=== PATIENT | female | born 1975 | race Caucasian/White ===

== ENCOUNTER → 2018-02-05 07:51 | Outpatient (CLI) | payer BC, OTHER, SELFPAY ==
--- NOTE | 2018-02-05 07:57 | HPBI_ITS ---
MAMMOGRAPHY - BILATERAL SCREENING REASON FOR EXAM: Female, 42 years old. Routine annual screening examination. PERTINENT HISTORY: Grandmother with breast cancer. TECHNIQUE: Digital bilateral breast jillian (3D mammographic acquisition) in the CC and MLO projections. 2-D mediolateral oblique (MLO) and craniocaudad (CC) views of both breasts were obtained. CAD: Full Field Digital Mammography with Computer Added Detection was performed. COMPARISON: Comparison is made with prior study dated July 02, 2016 and November 25, 2011. FINDINGS: Breast Composition: The breasts are almost entirely fatty. There are no dominant masses or suspicious calcifications. No other significant abnormalities are identified. There has been no significant change since the prior study. HPBI/SCREENING MAMM (CAD), BILAT IMPRESSION: Stable bilateral screening mammogram. Yearly follow-up mammogram recommended. (A) ASSESSMENT CATEGORY: BIRADS Category 1: Negative. A letter regarding these results will be sent to the patient by the facility within 30 days. Approximately 10% of breast cancers are not detected by mammography. A normal mammogram should not delay biopsy of a clinically suspicious abnormality. [id number] Electronically Signed: Theron Blair MD at 8:15 EDT Tel [phone], Service support ,
== END ==
PROVIDERS: Family Provider Family Medicine; PCP Family Medicine; Visit Provider Obstetrics & Gynecology
DX: Z12.31 Encounter for screening mammogram for malignant neoplasm of breast (principal)
CPT/HCPCS: 77063; 77067

== ENCOUNTER → 2018-03-12 07:04 | Outpatient (CLI) | payer BC, OTHER, SELFPAY ==
[2018-03-12 08:17] LABS: Absolute Lymphocyte Count 1.67 X10^3/ul (0.83-4.51); Absolute Neutrophil Count 3.5 X10^3/uL (2.0-7.7); Basophil# 0.02 X10^3/uL; Basophil% 0.3 % (0-1); Eosinophil# 0.16 X10^3/uL; Eosinophils% 2.8 % (0-5); Hematocrit 40.8 % (37-47); Hemoglobin 13.1 g/dl (12.0-15.0); Lymphocyte # 1.67 X10^3/ul (4.0); Lymphocyte % 28.8 % (19-41); Mean Corp Hgb Conc 32.1 g/gl (32-36); Mean Corpuscular Hgb 27.7 pg (27.0-32.0); Mean Corpuscular Volume 86.3 fL (81-99); Mean Platelet Vol. 9.9 fl (6.2-12.0); Monocyte% 6.9 % (0-10); Neutrophil # 3.53 X10^3/uL (2.7-7.7); POSITIVE COUNT NO; POSITIVE DIFFERENTIAL NO; POSITIVE MORPHOLOGY NO; Platelet Count 243 K/mm3 (150-450); RBC Distribution Width CV 13.3 % (11.6-14.6); RBC Distribution Width SD 42.4 fl (35.1-43.9); Red Blood Count 4.73 M/mm3 (4.2-5.4); White Blood Count 5.8 K/mm3 (4.4-11.0)
[2018-03-12 08:42] LABS: Microalbumin:Creatinine Ratio 6.9 mg/g CRE (<30 mg/g CRE)
[2018-03-12 08:58] LABS: ALB/GLOB Ratio 1.1 RATIO (0.9-2.4); AST(SGOT) 16 U/L (15-37); Alanine Aminotransfer ALT/SGPT 21 U/L (13-56); Albumin, Serum 3.9 g/dL (3.2-5.0); Alkaline Phosphatase 60 U/L (45-117); Anion Gap 8 (5-15); BUN 19 mg/dL (7-18); BUN/Creat Ratio 20.4 RATIO (10-20); Calcium,Total 8.7 mg/dL (8.5-10.1); Chloride 109 mmol/L (98-107); Cholesterol 260 mg/dL (200); Creatinine, Serum 0.93 mg/dL (0.55-1.02); EST Glomerular Filtration Rate 69 mL/min (>60); Est Glom Filt Rate - Afr Amer 84 mL/min (>60); Globulin 3.4 g/dL (2.2-4.2); Glucose 189 mg/dL (74-106); High Density Lipoprotein 38 mg/dL; Potassium 4.1 mmol/L (3.5-5.1); Protein, Total 7.3 g/dL (6.4-8.2); Sodium Level 140 mmol/L (136-145); Thyroid Stim Hormone (TSH) 0.78 uIU/mL (0.358-3.74); Triglycerides 199 mg/dL; Very Low Density Lipoprotein 40 mg/dL (5-40)
[2018-03-12 09:51] LABS: Hemoglobin A1c 8.1 % (4.2-6.3)
== END ==
PROVIDERS: Family Provider Family Medicine; PCP Family Medicine; Visit Provider Family Medicine
DX: E11.9 Type 2 diabetes mellitus without complications (principal); E78.5 Hyperlipidemia, unspecified; I10 Essential (primary) hypertension; R53.83 Other fatigue
CPT/HCPCS: 36415; 80053; 80061; 82043; 82570; 83036; 84443; 85025

== ENCOUNTER → 2018-04-12 11:21 | Outpatient (CLI) | payer BC, OTHER, SELFPAY ==
--- NOTE | 2018-04-12 11:25 | RAD_ITS ---
STUDY: X-RAY - RIGHT KNEE REASON FOR EXAM: Female, 42 years old. Right knee pain for one year, getting worse. TECHNIQUE: 4 view(s) of the knee. COMPARISON: None. FINDINGS: Normal visualized distal femur. Normal visualized proximal tibia and fibula. Normal proximal tibiofibular articulation. Normal medial femorotibial compartment. Normal lateral femorotibial compartment. Normal patellofemoral articulation. Probable small joint effusion. RAD/Knee 4 or More Views IMPRESSION: Small joint effusion. Electronically Signed: Bruno Clark MD at 5:05 EDT , Service support ,
== END ==
LOC: MTRAD 11:23
PROVIDERS: Family Provider Family Medicine; PCP Family Medicine; Visit Provider Family Medicine
DX: M25.561 Pain in right knee (principal); M25.461 Effusion, right knee
CPT/HCPCS: 73564

== ENCOUNTER 2018-04-30 23:44 | Emergency (ER) | payer BC, OTHER, SELFPAY ==
--- NOTE | 2018-04-30 | RAD_ITS ---
STUDY: X-RAY - RIGHT ANKLE REASON FOR EXAM: Female, 42 years old. Status post fall. TECHNIQUE: 3 view(s) of the ankle. COMPARISON: None. FINDINGS: Normal visualized distal tibia and fibula. Normal medial and lateral malleoli. Normal tibiotalar articulation and ankle mortise. Is a small well-defined bony density distal to the tip of the medial malleolus. There is a plantar calcaneal spur. The visualized subtalar, talonavicular, calcaneocuboid and tarsal articulations are normal. Soft tissue swelling laterally. RAD/Ankle min 3 Views IMPRESSION: Described. No demonstrated acute fracture. Electronically Signed: Shimon Pizarro MD at 1:34 EDT Tel , Service support ,
[2018-04-30 23:49] VITALS: BP 132/74; PULSE 81; RESP 16; TEMP 36.9; O2SAT 100; BMI 58.2
--- NOTE | 2018-05-01 00:15 | RAD_ITS ---
STUDY: X-RAY - RIGHT FOOT CLINICAL: Female, 42 years old. Status post fall. TECHNIQUE: 3 view(s) of the foot. COMPARISON: None. FINDINGS: There is a plantar calcaneal spur. There is a small calcific density on the plantar aspect of the cuboid. Normal visualized subtalar, talonavicular, calcaneocuboid, tarsal and tarsometatarsal articulations. Normal metatarsi. Normal metatarsophalangeal joint of the great toe. Normal tibial and fibular sesamoid bones. Normal interphalangeal joint of the great toe. Normal phalanges of the great toe. Normal second through fifth metatarsophalangeal joints. Normal interphalangeal joints and phalanges of the lesser toes. The soft tissue structures are unremarkable. RAD/Foot min 3 Views IMPRESSION: No demonstrated acute osseous injury. Electronically Signed: Shimon Pizarro MD at 1:37 EDT Tel , Service support ,
[2018-05-01] MEDS: oxyCODONE 5 MG Tablet 10 MG PO (00:46)
--- NOTE | 2018-05-01 01:47 | ED.VISSUMM ---
- ER Visit Summary Date of Service: 05/01/18 Chief Complaint: [] Right leg pain History of Present Illness: The patient is a 42 F [] patient reports mechanical fall prior to arrival with severe pain in her right ankle and foot. Patient presents via EMS on spinal board. Denies hitting head. No other complaints at this time. She reports she cannot bear weight secondary to pain. Physical Examination: [] Afebrile, vital signs stable. Test Results: [] Right foot x-rays: Negative. Right ankle x-rays: Negative. Emergency Department Course and Treatment: [] X-rays were negative. Patient was unable to ambulate on serial exam. Patient was provided oxycodone orally for analgesia. Her at the bedside will drive her home. She was provided Aircast and crutches. Provided with a prescription for NSAIDs. She was started to return for repeat x-rays in a week if she had continued significant pain or was unable to ambulate. Treatment Plan: [] Patient provided crutches and Aircast. Prescription for naproxen. Instructed to follow-up with PCP. Disposition: [] Discharge, stable. Impression: [] Right ankle sprain Right foot sprain This note was generated with [employer] dictation software. It may contain incorrect words, spelling, and punctuation that were not noted in review of the chart prior to signing ED Disposition - Plan for ED Patient: Chief Complaint: Lower Extremity Injury Referrals: Moustapha Bower DO [Primary Care Provider] -
--- NOTE | 2018-05-01 01:50 | ED.DEP ---
ED Disposition - Plan for ED Patient: Disposition: Home or Assisted Living Chief Complaint: Lower Extremity Injury Instructions: ED Sprain Ankle W X Ray, ED Sprain Foot Prescriptions: Naproxen [Naprosyn] 500 mg PO BID PRN PRN #20 tab PRN Reason: Pain Referrals: Moustapha Bower DO [Primary Care Provider] -
--- NOTE | 2018-05-01 02:36 | ED.RN ---
ASSISTING PT WITH [facility]UTCH WALKING OUT OF DEPARTMENT. PT STATED SHE FELT LIGHT HEADED. ASSISTED PT TO CHAIR. AT PT SIDE. LEFT PT TO SPEAK TO DR YEE ABOUT PT. REPLENISHMENT SPECIALIST CAME TO THIS RN AND STATED PT WAS ON THE FLOOR. WALKED TO BACK HALLWAY. PT LAYING IN THE MIDDLE OF THE HALLWAY AWAKE. PER PT AND , ASSISTED PT TO FLOOR BECAUSE SHE FELT LIKE SHE WAS GOING TO PASS OUT. PT DENIES FALL OR INJURY. ASSISTED PT TO CHAIR AND THEN TO BED. PT ABLE TO PUT HER LEGS BACK IN BED HERSELF. VITALS STABLE. DENIES PAIN OR INJURY. DR YEE AWARE, OBSERVING PT UNTIL 3AM, THEN WILL BE DISCHARGED HOME.
[2018-05-01 03:05] VITALS: BP 114/59; PULSE 87; RESP 18; O2SAT 98
--- NOTE | 2018-05-01 03:06 | ED.RN ---
PT AMBULATED WITHOUT DIFFICULTY WITH CRUTCHES TO THE BATHROOM. THEN PT WAS TAKEN OUT OF DEPARTMENT IN A WHEELCHAIR.
== END 2018-05-01 03:07 | disposition home or self-care (01) ==
PROVIDERS: Emergency Provider Emergency Medicine; Family Provider Family Medicine; PCP Family Medicine
DX: S93.401A Sprain of unspecified ligament of right ankle, initial encounter (principal); S93.601A Unspecified sprain of right foot, initial encounter; W19.XXXA Unspecified fall, initial encounter; Y93.9 Activity, unspecified; Y92.9 Unspecified place or not applicable; I10 Essential (primary) hypertension; E78.00 Pure hypercholesterolemia, unspecified; E11.9 Type 2 diabetes mellitus without complications; Z79.4 Long term (current) use of insulin; Z79.899 Other long term (current) drug therapy
CPT/HCPCS: 73610; 73630; 99285

== ENCOUNTER → 2018-07-08 14:01 | Outpatient (CLI) | payer BC, OTHER, SELFPAY | PROVIDERS: Family Provider Family Medicine; PCP Family Medicine; Visit Provider Family Medicine | DX: R00.0 Tachycardia, unspecified (principal) | CPT/HCPCS: 93225; 93226 ==

== ENCOUNTER → 2018-11-24 15:08 | Outpatient (CLI) | payer BC, OTHER, SELFPAY ==
--- NOTE | 2018-11-24 15:11 | RAD_ITS ---
HISTORY: PAIN, NKI COMPARISON: None FINDINGS: XR left shoulder 4 views No fracture or bony abnormality. The left glenohumeral relationship appears normal. Left AC joint is preserved. No soft tissue calcifications. IMPRESSION: Normal left shoulder. at 0645 Reported and signed by: Ron Roth MD Electronically Signed: Ron Roth, at 6:44 EST Tel , Service support , RAD/Shoulder min 2 Views
== END ==
PROVIDERS: Family Provider Family Medicine; PCP Family Medicine; Referring Provider Family Medicine; Visit Provider Family Medicine
DX: M75.102 Unspecified rotator cuff tear or rupture of left shoulder, not specified as traumatic (principal)
CPT/HCPCS: 73030

== ENCOUNTER → 2018-11-26 07:07 | Outpatient (CLI) | payer BC, OTHER, SELFPAY ==
[2018-11-26 09:07] LABS: Cholesterol 263 mg/dL (200); Hemoglobin A1c 8.1 % (4.2-6.3); High Density Lipoprotein 41 mg/dL; Thyroid Stim Hormone (TSH) 0.98 uIU/mL (0.358-3.74); Triglycerides 143 mg/dL; Very Low Density Lipoprotein 29 mg/dL (5-40)
== END ==
PROVIDERS: Family Provider Family Medicine; PCP Family Medicine; Referring Provider Family Medicine; Visit Provider Family Medicine
DX: E11.9 Type 2 diabetes mellitus without complications (principal); E78.5 Hyperlipidemia, unspecified; I10 Essential (primary) hypertension
CPT/HCPCS: 36415; 80061; 83036; 84443

== ENCOUNTER 2019-01-17 17:00 | Outpatient (RCR) | payer BC, OTHER, SELFPAY ==
--- NOTE | 2018-12-09 15:55 | HP.PTEVAL ---
Patient's Visit Information DIMA BROOKS is a 43 year old F referred to Physical Therapy by Moustapha Bower DO with a diagnosis of L RC tendonitis. Date of Evaluation: 12/09/18 Physical Therapist: LA AlfonsoT, OCS, CSCS - Visit Plan Frequency: 2-3x /Week Duration: 4-6 Weeks Plan: 2-3x/week for 2-4 weeks for: 1. PROM and mobs(grade 4) to L shoulder (g-h) for flexion/abd and IR/ER. 2. progress HEP for ROM(currently supine stick) to wall flexiona dn adding ext rotation adn IR stretches. 3. May do US thermal and MH to L shoulder. 4. strength posture and scap and RC L adn stretch L pec. - Subjective Findings: L shoulder giving issues since April insidiously. Just told doctor about it recently. Hard to lift shoulder. Hurts at rest achy 2/10, lifts increases to 9/10. It is tender to the touch. Gives shots for diabetes in L arm daily. Also fella nd sprained ankle pretty bad last year which is Ok now. Fell texting while going down steps. pain is front adn top and goes down to biceps at times. No numbness or tingling.. Sleep is interrupted b/c she likes to sleep on L side adn that hurts. Sleeps on back or R side. Still doesn't sleeping well. 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 Hurts when she works but doesn't avoid work. Typing hurts.. Basic: ADLs are painful taking coat off. Opening jar is difficult. She is L handed. Hobbies: olivia, avoids due to shoulder. Likes gardening. Exeercises: none - Pain L shoulder Pain Intensity (Out of 10): 2 Pain Intensity Range: 2, 9 - Objective Walks and ransfers normal. Posture is extreme forward shoulders and elevated scap. B pectorals very tight as is anterior capsule. Tender to touch entire L capsular area, moreso anteriorly on L side. Strength is 4/5 without pain in neutral position ext rot and IR and flexion and abd, worse as she elevates her arm. C/S aROM WFL and without pain. AROM R UE WNL. L UE AROM 85 flexion 75 abd, 20 ext rotation limited by pain, passively has a firm endfeel with these but pain is limiting factor. IR to belt line hesitant and painful. Strength adn ROM elbows and wrists WFL and painfree. - HK. - neer. - ext rotation lag test. - sulcus. all on L. - Goals Goal 1:: 140 aROM elevationa dn 60 ext rotation without pain to dress easier. Goal Time Frame: 4-6 Weeks Goal 2:: Sleep without interruption from shoulder pain at home. Goal Time Frame: 4-6 Weeks Goal 3:: Patient feel 75% back to normal and be I in approp HEP to minimize future problems. Goal Time Frame: 4-6 Weeks Goal 4:: Put on coat easily without pain. Goal Time Frame: 4-6 Weeks - Rehabilitation Potential Physical Therapy Diagnosis: Likely L shoulder adhesive capsulitis vs tendonitis. Rehabilitation Potential: Fair - Anticipated Interventions Patient/Client Instruction: Educate patient on: Condition, Plan of Care For the Purpose of:: To decrease pain, To increase ROM, To improve muscle performance and motor function, To increase tolerance to activity/condition/position Therapeutic Exercise to Include: Strength training, Flexibilty training, Passive ROM, Active ROM For the Purpose of:: To decrease pain, To increase ROM, To improve ability of physical actions for home/community/work/leisure Manual Therapy Techniques to Include: Mobilization, Passive ROM For the Purpose of:: To decrease pain, To increase ROM, To increase tolerance to activity/condition/position Thermo therapy (hot pack): Yes Ultrasound (thermal/non thermal): Yes - thermal L shoulder For the Purpose of:: To increase ROM, To improve nutrient delivery to tissue Thank you for the opportunity to evaluate your patient. For Medicare and Medicare HMO plans, please review the plan of care and approve it. It will need to be FAXED BACK to us at [phone] for Medicare purposes. For Medicare only, by signing this I certify the plan of care. Please let me know if there are questions or concerns regarding this plan of care. Physician Signature: Date:
--- NOTE | 2019-01-17 17:31 | HP.PTREVAL ---
Moustapha Bower, , It has been my pleasure to treat DIMA BROOKS over the last 4 visits for L RC tendonitis. Please see the progress note below for an update on the physical therapy plan of care! Subjective: No big changes to shoulder pain. house has been sick lately and uinable to make it to therapy. Shoulder does not ache at top anymore. Hurts in front of shoulder and down upper arm constant at about 5/10. Worse with moving it the wrong way. Lifting behind her is worse. Sleep is not great as she cannot sleep on L side due to shoulder. Taking coat off is challenging due to L UE pain. 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 Posture is tough. Props arm up when driving. 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 Objective/Function: Exhibiting very poor passive posture with forward shoulders. 100 degrees PROM flexion adn 90 abd. PROM ext rotation 15 adn AROM 30. IR to PSIS barely. Verry painful at end range of all motions. Strength is weak in ext rotation3+ adn IR 4- adn flexion/abd 3+ adn painful. Most notably she has firm endfeel with felxion, abd, ext rotation Possibly pointing toward frozen shoulder. Will have MRI next week and then call for further therapy as required. Has only had two treatments since eval and therapy is still her most palatable treatment. Plan Plan: Pt to call after MRI 01/24for likely ROM, and continue treatment. Goals Goal 1:: 140 aROM elevationa dn 60 ext rotation without pain to dress easier. Goal Time Frame: 4-6 Weeks Goal Progress: Not Progressing Goal 2:: Sleep without interruption from shoulder pain at home. Goal Time Frame: 4-6 Weeks Goal Progress: Not Progressing Goal 3:: Patient feel 75% back to normal and be I in approp HEP to minimize future problems. Goal Time Frame: 4-6 Weeks Goal Progress: Not Progressing Goal 4:: Put on coat easily without pain. Goal Time Frame: 4-6 Weeks Goal Progress: Not Progressing Anticipated Interventions Patient/Client Instruction: Educate patient on: Condition, Plan of Care For the Purpose of:: To decrease pain, To increase ROM, To improve muscle performance and motor function, To increase tolerance to activity/condition/position Therapeutic Exercise to Include: Strength training, Flexibilty training, Passive ROM, Active ROM For the Purpose of:: To decrease pain, To increase ROM, To improve ability of physical actions for home/community/work/leisure Manual Therapy Techniques to Include: Mobilization, Passive ROM For the Purpose of:: To decrease pain, To increase ROM, To increase tolerance to activity/condition/position Thermo therapy (hot pack): Yes Ultrasound (thermal/non thermal): Yes - thermal L shoulder For the Purpose of:: To increase ROM, To improve nutrient delivery to tissue Please do not hesitate to contact me at [phone] by phone or if you have questions or concerns regarding this new plan of care! Sincerely, Jamel Koehler, DPT, OCS, CSCS
--- NOTE | 2019-02-28 18:28 | HP.PTDCNRP_ITS ---
HP - Discharge Summary (1) - Patient Information DIMA BROOKS was seen in my office for initial evaluation on 12/09/18. The following Plan of Care was established for this patient: Initial Frequency: 2-3x /Week Initial Duration: 4-6 Weeks - Anticipated Interventions Patient/Client Instruction: Educate patient on: Condition, Plan of Care For the Purpose of:: To decrease pain, To increase ROM, To improve muscle p erformance and motor function, To increase tolerance to activity/condition/position Therapeutic Exercise to Include: Strength training, Flexibilty training, Passive ROM, Active ROM For the Purpose of:: To decrease pain, To increase ROM, To improve ability of physical actions for home/community/work/leisure Manual Therapy Techniques to Include: Mobilization, Passive ROM For the Purpose of:: To decrease pain, To increase ROM, To increase tolerance to activity/condition/position Thermo therapy (hot pack): Yes Ultrasound (thermal/non thermal): Yes - thermal L shoulder For the Purpose of:: To increase ROM, To improve nutrient delivery to tissue This patient was last seen in our office 01/17/19. Pertinent comments regarding their Physical therapy will appear below: Pt seen 4 visits of POC then wanted to have MRI and see doctor. She was to call after this if she needed to return but has no. It has been over 5 weeks adn I will discontinue due to non attendance. At this point I will be discontinuing this patient from physical therapy. I would be happy to see this patient again in the future if found appropriate by the physician. Thank you! Jamel Koehler, DPT, OCS, CSCS
== END 2019-01-17 19:00 | disposition home or self-care (01) ==
LOC: PT 17:00
PROVIDERS: Family Provider Family Medicine; PCP Family Medicine; Referring Provider Family Medicine; Visit Provider Family Medicine
DX: M75.102 Unspecified rotator cuff tear or rupture of left shoulder, not specified as traumatic (principal)
CPT/HCPCS: 97035; 97110; 97140; 97162; 97530

== ENCOUNTER → 2019-01-24 11:10 | Outpatient (CLI) | payer BC, OTHER, SELFPAY ==
--- NOTE | 2019-01-24 11:15 | US_ITS ---
STUDY: ULTRASOUND TRANSVAGINAL CLINICAL: Female, 43 years old. Menorrhagia. Right nephrectomy. TECHNIQUE: Transvaginal and transabdominal. COMPARISON: None. FINDINGS: Uterus is anteverted and tilted right and measures 9.9 x 5.3 x 5.2 cm. Scattered echogenic foci with linear shadowing suggestive of adenomyosis. The endometrial thickness 8 mm. Endometrium is hyperechoic. Findings suggestive of uterine adenomyosis.There are no endometrial masses, and there is no fluid in the endometrial cavity. Normal uterine cervix. Right ovary absent. Left ovary measures 3.2 x 2.9 x 2.9 cm. Simple left ovarian cyst measuring 2.1 x 1.8 x 2.0 cm. normal vascular flow. Mild fluid in the cul-de-sac. Urinary bladder volume 196 mL. US/Pelvic (Non ) IMPRESSION: Findings suggestive of uterine adenomyosis. Absent right ovary. Simple left ovarian cyst compatible with a physiologic cyst. Mild fluid in cul-de-sac which is a nonspecific finding often related to rupture of an ovarian cyst. Electronically Signed: Bruno Clark MD at 0:38 EST , Service support ,
--- NOTE | 2019-01-24 11:30 | US_ITS ---
STUDY: ULTRASOUND TRANSVAGINAL CLINICAL: Female, 43 years old. Menorrhagia. Right nephrectomy. TECHNIQUE: Transvaginal and transabdominal. COMPARISON: None. FINDINGS: Uterus is anteverted and tilted right and measures 9.9 x 5.3 x 5.2 cm. Scattered echogenic foci with linear shadowing suggestive of adenomyosis. The endometrial thickness 8 mm. Endometrium is hyperechoic. Findings suggestive of uterine adenomyosis.There are no endometrial masses, and there is no fluid in the endometrial cavity. Normal uterine cervix. Right ovary absent. Left ovary measures 3.2 x 2.9 x 2.9 cm. Simple left ovarian cyst measuring 2.1 x 1.8 x 2.0 cm. normal vascular flow. Mild fluid in the cul-de-sac. Urinary bladder volume 196 mL. US/Transvaginal Non- IMPRESSION: Findings suggestive of uterine adenomyosis. Absent right ovary. Simple left ovarian cyst compatible with a physiologic cyst. Mild fluid in cul-de-sac which is a nonspecific finding often related to rupture of an ovarian cyst. Electronically Signed: Bruno Clark MD at 0:38 EST , Service support ,
--- NOTE | 2019-01-24 13:45 | MRI_ITS ---
STUDY: MRI LEFT SHOULDER REASON FOR EXAM: Left shoulder pain and decreased range of motion, no specific injury. TECHNIQUE: Standardized fat and water weighted pulse sequences were obtained in all 3 orthogonal planes. COMPARISON: Radiographs 11/24/2018. FINDINGS: There is mild supraspinatus tendinosis (T2 coronal images 11-13) without discrete tendon tear. Normal infraspinatus tendon. Normal subscapularis tendon. Normal teres minor tendon. Normal supraspinatus muscle. Normal infraspinatus muscle. Normal subscapularis muscle. Normal teres minor muscle. Normal glenohumeral articulation. Normal humeral head and visualized proximal humerus. Normal biceps labral complex. Normal intracapsular long biceps tendon. Normal labrum. Normal capsulo- ligamentous complex. There is mild acromioclavicular arthrosis without undersurface osteophytes (T2 sagittal image 10). There is a Type I morphology (flat undersurface), with a neutral orientation. There is no subacromial-subdeltoid bursal fluid. Normal visualized coracohumeral and coracoacromial ligaments. Normal deltoid muscle. Normal trapezius muscle. MRI/Upper Ext Joint Only(Routine) IMPRESSION: Mild supraspinatus tendinosis without demonstrated rotator cuff tear. Mild acromioclavicular arthrosis. Electronically Signed: Oleg Interiano MD at 14:08 EST Tel , Service support ,
== END ==
PROVIDERS: Family Provider Family Medicine; PCP Family Medicine; Referring Provider Family Medicine; Visit Provider Family Medicine
DX: N92.1 Excessive and frequent menstruation with irregular cycle (principal); M75.102 Unspecified rotator cuff tear or rupture of left shoulder, not specified as traumatic; N83.292 Other ovarian cyst, left side; Z90.721 Acquired absence of ovaries, unilateral
CPT/HCPCS: 73221; 76830; 76856; 93976

== ENCOUNTER → 2019-04-10 09:12 | Outpatient (CLI) | payer BC, OTHER, SELFPAY ==
--- NOTE | 2019-03-13 13:55 | EKG12_ITS ---
Test Reason : PRE-OP Blood Pressure : / mmHG Vent. Rate : 067 BPM Atrial Rate : 067 BPM P-R Int : 162 ms QRS Dur : 104 ms QT Int : 446 ms P-R-T Axes : -06 006 -18 degrees QTc Int : 471 ms Normal sinus rhythm ST & T wave abnormality, consider anterior ischemia Prolonged QT Abnormal ECG Confirmed by MARLYS TONEY, SAUL ([id number]), senior technical editor PATRICIA WELLS ([id number] on 03/14/2019 4:11:16 PM Referred By: Gilberto Finn Confirmed By:SAUL FRANKEL MD
[2019-03-13 14:58] LABS: Hematocrit 39.2 % (37-47); Hemoglobin 12.7 g/dl (12.0-15.0); Mean Corp Hgb Conc 32.4 g/gl (32-36); Mean Corpuscular Volume 86.5 fL (81-99); Mean Platelet Vol. 10.1 fl (6.2-12.0); Platelet Count 277 K/mm3 (150-450); RBC Distribution Width CV 13.3 % (11.6-14.6); RBC Distribution Width SD 41.4 fl (35.1-43.9); Red Blood Count 4.53 M/mm3 (4.2-5.4)
[2019-03-13 15:01] LABS: Scan Indicated on CBC? Y/N NO
[2019-03-13 15:13] LABS: Anion Gap 8 (5-15); BUN 25 mg/dL (7-18); BUN/Creat Ratio 26.7 RATIO (10-20); Calcium,Total 9.2 mg/dL (8.5-10.1); Chloride 108 mmol/L (98-107); Creatinine, Serum 0.94 mg/dL (0.55-1.02); EST Glomerular Filtration Rate 69 mL/min (>60); Est Glom Filt Rate - Afr Amer 83 mL/min (>60); Glucose 164 mg/dL (74-106); Sodium Level 142 mmol/L (136-145)
[2019-03-31 14:09] VITALS: BMI 56.5
== END ==
PROVIDERS: Family Provider Family Medicine; PCP Family Medicine; Referring Provider Orthopaedic Surgery; Visit Provider Orthopaedic Surgery
DX: Z01.818 Encounter for other preprocedural examination (principal); Z01.810 Encounter for preprocedural cardiovascular examination
CPT/HCPCS: 36415; 80048; 85027; 93005

== ENCOUNTER 2019-05-06 16:09 | Emergency (ER) | payer BC, OTHER, SELFPAY ==
[2019-03-31 14:09] VITALS: BMI 56.5
[2019-05-06 16:10] VITALS: BP 150/96; PULSE 75; RESP 16; TEMP 36.7; O2SAT 97; BMI 56.2
--- NOTE | 2019-05-06 16:37 | CT_ITS ---
STUDY: CT ABDOMEN AND PELVIS WITHOUT CONTRAST REASON FOR EXAM: Female, 43 years old. Left flank pain RADIATION DOSAGE (If Supplied By Facility): CTDIvol = ( 34.23 ) mGy, DLP = ( 1907.10 ) mGycm TECHNIQUE: Transaxial images were obtained from the dome of the diaphragm to the symphysis pubis without oral contrast, and without intravenous contrast. Sagittal and coronal images were reconstructed. Individualized dose optimization techniques were used for this CT. COMPARISON: June 15, 2009 report only FINDINGS: There is minor interstitial thickening lung bases. There is tiny calcified granuloma in left lower lobe. The visualized portions of the heart are within normal limits. Normal liver. Contracted thick-walled gallbladder without calcified stones likely physiologic. If concern for gallbladder disease ultrasound recommended. Normal spleen. Normal pancreas. Normal bilateral adrenal glands. Right kidney is normal. There is mild dilatation of left renal pelvis and proximal ureter in association with a small nonobstructing calculus in the distal left ureter proximal to the ureterovesical junction measuring approximately 4 mm in size Normal visualized stomach. Normal small intestine. Diverticular changes of the colon without evidence for acute diverticulitis The appendix is visualized and appears normal. Minor atherosclerotic changes of the aorta without evidence for aneurysm Normal inferior vena cava. Normal retroperitoneum. Normal urinary bladder. Mild cystic changes of the left ovary. Normal abdominal wall. Lumbar spine demonstrates mild spondylosis.. CT/Abdomen/Pelvis without Cont IMPRESSION: Small nonobstructing distal left ureteral calculus measuring approximately 4 mm in size.. Electronically Signed: Chandler Zepeda MD at 18:20 EDT , Service support ,
[2019-05-06] MEDS: Ondansetron 4 MG/2 ML Vial IV (17:02)
[2019-05-06] MEDS: Ketorolac 30 MG/ML Syringe IV (17:03)
[2019-05-06] MEDS: Morphine 4 MG/ML Syringe IV (17:03)
[2019-05-06] MEDS: 0.9% Normal Saline 1,000 ML 1000 ML IV (17:03)
[2019-05-06 17:27] LABS: Color, Urine Yellow (Yellow); Glucose, Dipstick Normal (Normal); Ketone-Dipstick 5 mg/dl (Negative); Leukocyte Esterase-Dipstick 25 /ul (Negative); Nitrite-Dipstick Negative (Negative); Occult Blood-Urine 250 /ul (Negative); Protein-Dipstick 30 mg/dl (Negative); Urine Bilirubin Dipstick Negative (Negative); Urine Clarity Clear (Clear); Urine Urobilinogen Normal (Normal)
[2019-05-06 17:32] LABS: Absolute Lymphocyte Count 1.84 X10^3/ul (0.83-4.51); Absolute Neutrophil Count 4.4 X10^3/uL (2.0-7.7); Basophil# 0.03 X10^3/uL; Basophil% 0.4 % (0-1); Differential Indicated SCAN CRITERIA MET; Eosinophil# 0.17 X10^3/uL; Eosinophils% 2.5 % (0-5); Hematocrit 38.8 % (37-47); Hemoglobin 12.6 g/dl (12.0-15.0); Lymphocyte # 1.84 X10^3/ul (4.0); Lymphocyte % 26.6 % (19-41); Mean Corp Hgb Conc 32.5 g/gl (32-36); Mean Corpuscular Hgb 27.9 pg (27.0-32.0); Mean Corpuscular Volume 85.8 fL (81-99); Mean Platelet Vol. 9.5 fl (6.2-12.0); Monocyte# 0.42 X10^3/uL; Monocyte% 6.1 % (0-10); Neutrophil # 4.44 X10^3/uL (2.7-7.7); Neutrophil % 64.3 % (47-70); POSITIVE COUNT NO; POSITIVE DIFFERENTIAL NO; POSITIVE MORPHOLOGY YES; Platelet Count 277 K/mm3 (150-450); RBC Distribution Width CV 13.6 % (11.6-14.6); RBC Distribution Width SD 42.5 fl (35.1-43.9); Red Blood Count 4.52 M/mm3 (4.2-5.4); White Blood Count 6.9 K/mm3 (4.4-11.0)
[2019-05-06 17:42] LABS: Bacteria 2+ /hpf (None Seen); Calcium Oxalate Crystals Ur 1+ /hpf (<or=2+); Mucous, Urine 2+ /hpf (<or=2+); Red Blood Cells-Urine > 100 SEEN /hpf (0-5); Squamous Epithelial Cells - UA 0-5 SEEN /hpf (5-10); White Blood Cells 0-5 SEEN /hpf (0-5)
[2019-05-06 17:44] LABS: Internal QC Validated? YES +Cl - CLEAR BKGD; Pregnancy, Serum, hCG Quali. NEGATIVE Negative
[2019-05-06 17:46] LABS: ALB/GLOB Ratio 1.2 RATIO (0.9-2.4); AST(SGOT) 19 U/L (15-37); Alanine Aminotransfer ALT/SGPT 31 U/L (13-56); Albumin, Serum 3.7 g/dL (3.2-5.0); Alkaline Phosphatase 55 U/L (45-117); Anion Gap 6 (5-15); BUN 23 mg/dL (7-18); BUN/Creat Ratio 22.5 RATIO (10-20); Calcium,Total 9.3 mg/dL (8.5-10.1); Chloride 108 mmol/L (98-107); Creatinine, Serum 1.02 mg/dL (0.55-1.02); EST Glomerular Filtration Rate 62 mL/min (>60); Est Glom Filt Rate - Afr Amer 75 mL/min (>60); Estimated Creatinine Clearance 55.09 ml/min; Globulin 3.1 g/dL (2.2-4.2); Glucose 212 mg/dL (74-106); Potassium 3.9 mmol/L (3.5-5.1); Protein, Total 6.8 g/dL (6.4-8.2); Sodium Level 139 mmol/L (136-145)
[2019-05-06 17:49] LABS: Differential Comment SCANNED
--- NOTE | 2019-05-06 18:16 | ED.VISSUMM ---
- ER Visit Summary Date of Service: 05/06/19 Chief Complaint: Left flank pain History of Present Illness: The patient is a [address] Bower. She reports that she has left flank pain that began this morning. Sick constant waxing, waning pain that she described as sharp. It is 8 out of 10 in severity. It is worsened by nothing and relieved by nothing. She has had nausea without vomiting. No dysuria or frequency. No hematuria. Patient also reports she has had cramping mild lower abdominal pain for 2 days. This is 7 out of 10 severity. Is worsened by nothing. Is relieved by Aleve. She reports that she has had 5 episodes of diarrhea today. No blood in her stools or black tarry stools. Patient denies sick contacts. Has not been camping out of the country. No possible bad food exposure. Does not drink well water. No recent antibiotic use. Physical Examination: Vitals: Stable. Afebrile. General: Well-nourished and well-developed. Head: Normocephalic atraumatic. Neck: Supple, no lymphadenopathy. No JVD. Nontender. Cardiovascular: Regular rate and rhythm. No murmurs. Respiratory: No respiratory distress. Clear to auscultation bilaterally. Abdominal: Soft, mild suprapubic tenderness to palpation, nondistended, normal bowel sounds. No guarding, rebound, or peritoneal signs. Back: Nontender. Extremities: Nontender, no edema. Skin: Normal color, no rash. Neurologic: Alert and oriented ?3. Cranial nerves II through XII are intact. Normal strength and sensation. Psych: Normal affect. Test Results: CBC is normal. Chem-7 shows a chloride of 108, glucose of 212, BUN 23. LFTs are normal. UA has greater than 100 reds with no evidence of infection. test is negative. Clinical Impression(s) from Imaging Studies Abdomen/Pelvis CT 05/06/19 16:37 IMPRESSION: Small nonobstructing distal left ureteral calculus measuring approximately 4 mm in size.. Electronically Signed: Chandler Zepeda MD at 18:20 EDT , Service support , Emergency Department Course and Treatment: Patient was treated with morphine, Zofran, and Toradol IV. She is resting comfortably. Treatment Plan: Patient will be discharged with a urine strainer. She will be placed on Zofran, naproxen, and Percocet. Instructed to follow-up with Dr. Hilton in 5 days if she does not pass the stone. Return to the emergency department for any worsening symptoms. Disposition: To home in improved and stable condition. Impression: 1. Left ureterolithiasis. This note was generated with [employer] dictation software. It may contain incorrect words, spelling, and punctuation that were not noted in review of the chart prior to signing ED Disposition - Plan for ED Patient: Disposition: Home or Assisted Living Instructions: ED Stone Renal W Colic Prescriptions: Oxycodone HCl/Acetaminophen [Percocet 5/325] 1 tablet PO Q6H PRN PRN 3 Days #12 tablet PRN Reason: Pain Ondansetron [Zofran Odt] 4 mg PO Q8H PRN PRN #10 tablet PRN Reason: Nausea Naproxen [Naprosyn] 500 mg PO BID #14 tablet Referrals: Kenneth Hilton MD [STAFF PHYSICIAN] - 1 Week if not improving
[2019-05-06 18:46] VITALS: BP 125/77; PULSE 70; RESP 15; O2SAT 98
== END 2019-05-06 18:48 | disposition home or self-care (01) ==
LOC: ED 16:49
PROVIDERS: Emergency Provider Emergency Medicine; Family Provider Family Medicine; PCP Family Medicine
DX: N20.1 Calculus of ureter (principal); I10 Essential (primary) hypertension; E11.9 Type 2 diabetes mellitus without complications; Z79.4 Long term (current) use of insulin; Z79.899 Other long term (current) drug therapy; Z84.1 Family history of disorders of kidney and ureter
CPT/HCPCS: 74176; 80053; 81001; 84703; 85025; 96361; 96374; 96375; 99283; J7030; A4216; J2405

== ENCOUNTER → 2019-05-11 16:40 | Outpatient (CLI) | payer BC, OTHER, SELFPAY ==
--- NOTE | 2019-05-11 | EMB_PTH ---
PATIENT: DIMA BROOKS LOC: [facility] U#:[id number] AGE/SX: 50/F ROOM: RE05/11/[address]: Dr. Nellie Ambrosio MD : 1975 BED: DIS: SPEC #: [id number] RECD: 05/11/19 16:28 STATUS: SAM CATARINA #: [id number] ANA: 05/11/19 00:[address]: Nellie Ambrosio DEPT: SURGICAL PATHOLOGY RECD BY: Darron Brunner ENTERED: 05/12/19 09:06 SP TYPE: ENDOM BX/C KRISTINA DR: Dr. Moustapha Bower DO Tissues: Endometrium, NOS Procedures: Surgery Specimen Level IV HEADER OPERATION: Endometrial biopsy PRE-OP DIAGNOSIS: Abnormal uterine bleeding TISSUE SUBMITTED: Endometrial biopsy MICROSCOPIC DIAGNOSIS Endometrium, biopsy: Proliferative endometrium. Scant strips of benign superficial endocervix. AM:yamilet 05/15/19 MICROSCOPIC DESCRIPTION Slides are reviewed. GROSS DESCRIPTION Received is one container labeled with the patient's name and not further designated. The specimen consists of multiple fragments of hemorrhagic mucoid tissue that in aggregate measure 2.5 x 2 x 0.3 cm. The specimen is totally submitted in one cassette. / SJ:yamilet 05/12/19 TC:5 CPT: 89861
[2019-05-11 14:41] VITALS: BMI 56.5
[2019-05-16 16:11] LABS: HPV APTIMA, High Risk Negative (Negative)
== END ==
PROVIDERS: Family Provider Family Medicine; PCP Family Medicine; Referring Provider Obstetrics & Gynecology; Visit Provider Obstetrics & Gynecology
DX: Z12.4 Encounter for screening for malignant neoplasm of cervix (principal); N93.9 Abnormal uterine and vaginal bleeding, unspecified
CPT/HCPCS: 87624; 88175; 88305; G0145

== ENCOUNTER → 2019-06-17 07:15 | Outpatient (CLI) | payer BC, OTHER, SELFPAY ==
[2019-05-11 14:41] VITALS: BMI 56.5
[2019-06-17 08:24] LABS: Hemoglobin A1c 7.8 % (4.2-6.3)
[2019-06-17 08:28] LABS: Microalbumin:Creatinine Ratio 7.1 mg/g CRE (<30 mg/g CRE)
[2019-06-17 08:42] LABS: Cholesterol 256 mg/dL (200); High Density Lipoprotein 35 mg/dL; Triglycerides 183 mg/dL; Very Low Density Lipoprotein 37 mg/dL (5-40)
== END ==
PROVIDERS: Family Provider Family Medicine; PCP Family Medicine; Referring Provider Family Medicine; Visit Provider Family Medicine
DX: E11.9 Type 2 diabetes mellitus without complications (principal); E78.5 Hyperlipidemia, unspecified
CPT/HCPCS: 36415; 80061; 82043; 82570; 83036

== ENCOUNTER → 2019-12-19 12:48 | Outpatient (CLI) | payer OTHER, SELFPAY ==
[2019-06-21 16:13] VITALS: BMI 56.5
--- NOTE | 2019-12-19 12:52 | MRI_ITS ---
STUDY: MRI BRAIN WITH AND WITHOUT CONTRAST REASON FOR EXAM: Female, 44 years old. neoplasm of uncertain behavior,headaches,HEAD PRESSURE WITH SNEEZING/COUGHING TECHNIQUE: Standardized multiplanar fat and water weighted pulse sequences were obtained. IV Dotarem 27ml was administered for the contrast portion of the examination. COMPARISON: None. FINDINGS: Normal size of the ventricles and extra-axial spaces for the patient''s age. Normal white matter tracts of the supratentorial brain. There is no evidence for recent intracranial ischemia or other cause of cytotoxic edema on diffusion weighted imaging (DWI). Normal T2* images of the brain without demonstrated susceptibility artifact. There is no demonstrated hemosiderin stain. Normal bilateral basal ganglia. Normal thalami. There is no extra-axial fluid accumulation. Normal flow voids within the major intracranial circulation suggesting patency by spin echo criteria. Normal venous enhancement. There is no enhancing intra-axial or extra-axial abnormality. Normal sella turcica, pituitary gland, infundibular stalk, optic chiasm and hypothalamus. Normal tectal plate and pineal gland. Normal midbrain, santiago and medulla. Normal cerebellum. Normal basal cisterns. Normal bilateral temporal bones. Normal bilateral internal auditory canals. No demonstrated orbital abnormality, within the constraints of a routine brain study. Normal visualized paranasal sinuses. Normal calvarium and skull base. Normal visualized soft tissue structures. Normal visualized upper cervical spine. MRI/Brain W/WO Contrast IMPRESSION: Normal unenhanced and enhanced MRI of the brain. Electronically Signed: Bebo Montgomery MD at 16:45 EST Tel , Service support ,
== END ==
LOC: MRI 12:50
PROVIDERS: Family Provider Family Medicine; PCP Family Medicine; Referring Provider Psychiatry & Neurology Neurology; Visit Provider Psychiatry & Neurology Neurology
DX: D43.1 Neoplasm of uncertain behavior of brain, infratentorial (principal)
CPT/HCPCS: 70553; A9575

== ENCOUNTER 2020-08-23 09:00 | Outpatient (RCR) | payer BC, SELFPAY ==
[2020-08-01 14:15] VITALS: BMI 54.2
--- NOTE | 2020-08-19 09:47 | HP.PTEVAL_ITS ---
Patient's Visit Information DIMA BROOKS is a 45 year old F referred to Physical Therapy by Dr. Moustapha Bower DO with a diagnosis of BPPV. Date of Evaluation: 08/19/20 Physical Therapist: Jamel Koehler DPT, OCS, CSCS - Visit Plan Frequency: 1-2x /Week Duration: 2-4 Weeks Plan: 1-2x/week x 2-4. Postional treatmetns as needed adn ensure return to activity. - Subjective Dizzy. BPPV. Moving the wrong way makes her spin such as getting out of bed. Lying down, these make spinning happen and it lasts for a short time. Makes her naseous. Been there for 10 days and woke up that way. Got out of bed that morning and spun. no problem the night prior. Called children to help that first day. Hard to turn head early on. Went to doctor a few days later. He gave her medicine for dizzyness and it does not help. Has neurologist Janis and saw him by coincidence for migraines last week. Will see ENT due to that. May have hearing loss. Not employed. Sleep is OK. Avoids bending at home adn doing anything very active and avoiding steps. - Objective Walks and trasnfers I. Cervical aROM WFL but slow and hesitant , no pain. - l hallpike luther. + R hallpike luther for up torsional nystagmus 15 sec. Treated with R daniel. Then much better and treated one more time. - Balance Scores Functional Gait Assessment Score: 25 % Disability: 16.6700 - Goals Goal 1:: Abolish vertigo Goal Time Frame: 2-4 Weeks Goal 2:: Pt feel 100% back to normal activities Goal Time Frame: 2-4 Weeks Goal 3:: DHI score less than 10 Goal Time Frame: 2-4 Weeks - Rehabilitation Potential Physical Therapy Diagnosis: BPPV Rehabilitation Potential: Fair - Anticipated Interventions Patient/Client Instruction: Educate patient on: Condition, Plan of Care For the Purpose of:: To increase tolerance to activity/condition/position Comment: postional and activity treatments as needed.a dn exercises For the Purpose of:: To increase tolerance to activity/condition/position Thank you for the opportunity to evaluate your patient. For Medicare and Medicare HMO plans, please review the plan of care and approve it. It will need to be FAXED BACK to us at [phone] for Medicare purposes. For Medicare only, by signing this I certify the plan of care. Please let me know if there are questions or concerns regarding this plan of care. Physician Signature: Date:
--- NOTE | 2020-08-23 09:13 | HP.PTDCSUM_ITS ---
It has been my pleasure to treat DIMA BROOKS referred by Dr. Moustapha Bower DO, with the diagnosis of BPPV for a total of 2 visit(s). Discharge Date: 08/23/20 Please see the following information for a summary of their discharge status. Subjective: Seems like it is gone. Feels good. Avoiding nothing at home. No scheduled f/u with doctor. % Improvement: 100 Objective/Function: foam stance ec 30 seconds without problems today. - B hallpike luther tests. Resolved. Goal 1:: Abolish vertigo Goal Progress: Goal Met Goal 2:: Pt feel 100% back to normal activities Goal Progress: Goal Met Goal 3:: DHI score less than 10 Goal Progress: Goal Met Plan: 1-2x/week x 2-4. Postional treatmetns as needed adn ensure return to acti vity. If there are questions or concerns regarding this patient's physical therapy, please feel free to call me at [phone]. Thank you for the referral of this patient. Sincerely, Jamel Koehler, DPT, OCS, CSCS
== END 2020-08-23 19:00 | disposition home or self-care (01) ==
LOC: PT 09:00
PROVIDERS: PCP Family Medicine; Referring Provider Family Medicine; Visit Provider Family Medicine
DX: H81.10 Benign paroxysmal vertigo, unspecified ear (principal)
CPT/HCPCS: 97161; 97530

== ENCOUNTER → 2020-09-16 10:11 | Outpatient (CLI) | payer BC, SELFPAY ==
[2020-08-01 14:15] VITALS: BMI 54.2
[2020-09-16 12:22] LABS: Absolute Neutrophil Count 3.4 X10^3/uL (2.0-7.7); Basophil# 0.03 X10^3/uL; Basophil% 0.5 % (0-1); Eosinophil# 0.15 X10^3/uL; Eosinophils% 2.6 % (0-5); Hematocrit 42.8 % (37-47); Hemoglobin 13.2 g/dL (12.0-15.0); Lymphocyte % 31.5 % (19-41); Mean Corp Hgb Conc 30.8 g/dL (32-36); Mean Corpuscular Hgb 27.7 pg (27.0-32.0); Mean Corpuscular Volume 89.7 fL (81-99); Mean Platelet Vol. 10.7 fl (6.2-12.0); Monocyte# 0.37 X10^3/uL; Monocyte% 6.5 % (0-10); NRBC Flagged by Analyzer 0 % (0-5); Neutrophil # 3.36 X10^3/uL (2.7-7.7); Neutrophil % 58.7 % (47-70); Platelet Count 273 K/mm3 (150-450); RBC Distribution Width CV 12.9 % (11.6-14.6); RBC Distribution Width SD 42.5 fl (35.1-43.9); Red Blood Count 4.77 M/mm3 (4.2-5.4); White Blood Count 5.7 K/mm3 (4.4-11.0)
[2020-09-16 12:45] LABS: ALB/GLOB Ratio 1.2 RATIO (0.9-2.4); AST(SGOT) 19 U/L (15-37); Alanine Aminotransfer ALT/SGPT 28 U/L (13-56); Alkaline Phosphatase 45 U/L (45-117); Anion Gap 9 (5-15); BUN 27 mg/dL (7-18); BUN/Creat Ratio 28.1 RATIO (10-20); Calcium,Total 9.2 mg/dL (8.5-10.1); Chloride 108 mmol/L (98-107); Cholesterol 246 mg/dL (200); Creatinine, Serum 0.96 mg/dL (0.55-1.02); EST Glomerular Filtration Rate 66 mL/min (>60); Est Glom Filt Rate - Afr Amer 80 mL/min (>60); Globulin 3.3 g/dL (2.2-4.2); Glucose 139 mg/dL (74-106); High Density Lipoprotein 41 mg/dL; Potassium 3.8 mmol/L (3.5-5.1); Protein, Total 7.3 g/dL (6.4-8.2); Sodium Level 141 mmol/L (136-145); Thyroid Stim Hormone (TSH) 0.48 uIU/mL (0.358-3.74); Triglycerides 164 mg/dL; Very Low Density Lipoprotein 33 mg/dL (5-40)
[2020-09-16 13:40] LABS: Microalbumin,Random Urine 16.3 mg/L (NO RANGE EST.)
== END ==
PROVIDERS: Family Medicine
DX: Z00.00 Encounter for general adult medical examination without abnormal findings (principal); E11.9 Type 2 diabetes mellitus without complications
CPT/HCPCS: 36415; 80053; 80061; 82043; 82570; 84443; 85025

== ENCOUNTER → 2021-04-07 06:46 | Outpatient (CLI) | payer BC, SELFPAY ==
[2021-03-17 14:47] VITALS: BMI 53.6
--- NOTE | 2021-04-07 06:52 | ECHOCS_ITS ---
Reason For Study: CHEST PAIN Procedure This was a 2D Doppler, Color Flow transthoracic echocardiogram. The study was technically difficult. Contrast injection was performed. Exam performed in department. Left Ventricle Normal LV size. Left ventricular systolic function is normal. The estimated ejection fraction is 55 %. Stage 1 diastolic dysfunction. No regional wall motion abnormalities noted. Right Ventricle Normal RV size. Normal systolic function. Atria The left atrium is mildly enlarged. Normal right atrium. Mitral Valve Normal mitral valve. Tricuspid Valve Normal tricuspid valve. Mild (1+) tricuspid valve insufficiency. Pulmonary artery systolic pressure is 23 mmHg. Aortic Valve The aortic valve is not well visualized. Pulmonic Valve Normal pulmonic valve. Great Vessels Normal aortic root. The pulmonary artery is normal size. Normal inferior vena cava. Pericardium/Pleural No pericardial effusion. Medication Diluted definity 3.0ml given slow IV push to enhance endocardial definition. MMode/2D Measurements & Calculations LVIDd: 4.6 cm IVSd: 0.83 cm Ao root diam: 3.2 cm LVIDs: 3.2 cm LVPWd: 0.83 cm RVDd: 3.1 cm FS: 30.5 % LAV(MOD-bp): 51.4 ml EDV(MOD-sp4): 161.2 ml EDV(MOD-sp2): 146.6 ml LAV(MOD-bp) Indexed: 22.9 ml/m2 ESV(MOD-sp4): 70.3 ml ESV(MOD-sp2): 64.5 ml LAV(MOD-sp2): 35.4 ml EF(MOD-sp4): 56.4 % EF(MOD-sp2): 56.0 % LAV(MOD-sp4): 64.2 ml SV(MOD-sp4): 90.9 ml SV(MOD-sp2): 82.0 ml LA A4 area: 22.3 cm2 LA dimension(2D): 3.8 cm RA A4 area: 13.5 cm2 Time Measurements MV dec time: 0.24 sec Doppler Measurements & Calculations MV E max marvin: 98.0 cm/sec Lat Peak E' Marvin: 9.7 cm/sec Med Peak E' Marvin: 7.0 cm/sec MV A max marvin: 114.4 cm/sec E/E' lat: 10.1 E/E' med: 13.9 MV E/A: 0.86 Ao V2 max: 171.5 cm/sec LV V1 max: 122.0 cm/sec PA V2 max: 106.7 cm/sec Ao max P.8 mmHg LV V1 max P.0 mmHg TR max marvin: 212.1 cm/sec TR max P.0 mmHg ECHO/Echo Complete W/ Contrast Interpretation Summary Normal LV size. Left ventricular systolic function is normal. The estimated ejection fraction is 55 %. Stage 1 diastolic dysfunction. Contrast injection was performed. Ordering Physician: Jemal Jensen/Jacoby Khan Referring Physician: NATHANAEL UP Performed By: Re Crooks, MISSAEL, RVT
--- NOTE | 2021-04-07 14:15 | STRESSREP ---
Stress Test Report Pharmacologic myocardial perfusion stress test. 45-year-old lady with a history of supraventricular tachyarrhythmia for preoperative evaluation. Stress protocol: Resting EKG demonstrates normal sinus rhythm with a rate of [address] changes noted. Resting blood pressures 128/72 mmHg. 0.4 mg of regadenoson was infused per usual protocol followed by rapid intravenous saline flush injection continuous EKG monitoring was performed. The maximum heart rate attained was 99 bpm which was 57% of maximum predicted heart rate the maximum workload was 1 metabolic equivalent. At rest there were no ST or T wave changes to suggest any ischemia and at peak infusion nonspecific ST-T wave changes noted with no evidence of ischemia. Myocardial perfusion protocol. 14.7 mCi of technetium 99m sestamibi was injected at rest. 0.4 mg of regadenoson was infused per usual protocol. At peak infusion 44.9 mCi of technetium 99m sestamibi was injected stress images were obtained stress and rest images were reconstructed and compared in the short axis vertical long horizontal long axis. Gated images were also obtained Perfusion SPECT analysis: Review of the stress images demonstrate mildly reduced perfusion noted in the anterior wall on the stress and rest images to a similar extent. The resting images demonstrate normal perfusion in all areas of the myocardium except for the anterior wall. The above is suggestive of anterior breast wall attenuation more likely. No previous infarct is noted. Gated SPECT analysis: The gated ejection fraction is 68%. Conclusion: Pharmacologic myocardial perfusion stress test with no evidence of ischemia noted. Anterior breast were attenuation likely. Preserved ejection fraction
== END ==
LOC: CVS 06:50
PROVIDERS: PCP Family Medicine; Referring Provider Nurse Practitioner Family; Visit Provider Nurse Practitioner Family
DX: E66.01 Morbid (severe) obesity due to excess calories (principal); R07.9 Chest pain, unspecified; I34.0 Nonrheumatic mitral (valve) insufficiency; E11.9 Type 2 diabetes mellitus without complications; I10 Essential (primary) hypertension; E78.5 Hyperlipidemia, unspecified
CPT/HCPCS: 78452; 93017; 93306; A9500; Q9957; A4216; C8929; J2785

== ENCOUNTER → 2021-07-22 20:00 | Outpatient (CLI) | payer BC, SELFPAY ==
[2021-06-09 15:55] VITALS: BMI 54.3
== END ==
PROVIDERS: PCP Family Medicine; Visit Provider Family Medicine
DX: G47.33 Obstructive sleep apnea (adult) (pediatric) (principal); R06.89 Other abnormalities of breathing; G47.10 Hypersomnia, unspecified

== ENCOUNTER → 2021-07-31 13:00 | Outpatient (CLI) | payer BC, SELFPAY | PROVIDERS: PCP Family Medicine; Visit Provider Family Medicine | DX: Z46.89 Encounter for fitting and adjustment of other specified devices (principal) ==

== ENCOUNTER → 2021-08-25 10:42 | Outpatient (CLI) | payer BC, SELFPAY ==
--- NOTE | 2021-08-25 11:29 | MRI_ITS ---
EXAM: MR HEAD WITHOUT AND WITH INTRAVENOUS CONTRAST : 1975 CLINICAL INDICATION: INTRACTACTABLE MIGRAINE WITH AURA TECHNIQUE: Multiplanar and multisequence MR images of the brain were obtained without and with intravenous contrast. This report was created using [employer] technology. CONTRAST: 27ML IV DOTAREM COMPARISON: None. FINDINGS: BRAIN AND EXTRA-AXIAL SPACES: Unremarkable. No intra- or extra-axial hemorrhage. No evidence of acute infarct. No intracranial mass or mass effect. There is preservation of the laurent/white matter interface. Posterior fossa structures are unremarkable. Ventricles are appropriate for age. No hydrocephalus. Basal cisterns are patent. No abnormal contrast enhancement. SELLA: Unremarkable. Normal sella turcica, pituitary gland, infundibular stalk, optic chiasm and hypothalamus. AUDITORY SYSTEM: Unremarkable. The internal auditory canals are patent. BONES/JOINTS: Unremarkable. No discrete lytic or blastic abnormalities. SINUSES: Unremarkable as visualized. Clear. MASTOID AIR CELLS: Unremarkable as visualized. Clear. ORBITS: Unremarkable as visualized. Both globes, extraocular muscles, optic nerves and retrobulbar fat appear unremarkable. VASCULATURE: Unremarkable as visualized. Normal flow voids in the major intracranial circulation. MRI/Brain W/WO Contrast IMPRESSION: 1. No acute abnormality. 2. No interval change. at 1507 Reported and signed by: French Artis MD Electronically Signed: French Artis MD at 15:06 EDT Tel , Service support ,
== END ==
PROVIDERS: PCP Family Medicine
DX: G43.119 Migraine with aura, intractable, without status migrainosus (principal)
CPT/HCPCS: 70553; A9575

== ENCOUNTER 2021-11-18 13:42 | Outpatient (CLI) | payer BC, SELFPAY ==
[2021-11-18] MEDS: 0.9% Saline Lock 10 ML Syringe IV (14:16)
[2021-11-18 14:20] VITALS: BP 133/71; PULSE 91; RESP 16; TEMP 37.2; O2SAT 98; BMI 52.4
[2021-11-18 14:51] VITALS: BP 106/67; PULSE 81; RESP 16; TEMP 37.3; O2SAT 97
[2021-11-18 15:46] VITALS: BP 123/70; PULSE 80; RESP 16; TEMP 37.6; O2SAT 96
== END 2021-11-18 15:55 | disposition home or self-care (01) ==
LOC: MS3OUT 13:42 → MS3 13:43
PROVIDERS: PCP Family Medicine; Referring Provider Nurse Practitioner Adult Health; Visit Provider Nurse Practitioner Adult Health
DX: Z23 Encounter for immunization (principal); U07.1 COVID-19
CPT/HCPCS: J7050; M0245; Q0245; A4216

== ENCOUNTER 2022-01-12 07:13 | Outpatient (CLI) | payer BC, SELFPAY ==
--- NOTE | 2022-01-12 07:25 | BI_ITS ---
MAMMOGRAPHY - BILATERAL SCREENING REASON FOR EXAM: Female, 46 years old. Routine annual screening examination. PERTINENT HISTORY: Grandmother with breast cancer. TECHNIQUE: Digital bilateral breast mauro (3D mammographic acquisition) in the CC and MLO projections. 2-D mediolateral oblique (MLO) and craniocaudad (CC) views of both breasts were obtained. CAD: Full Field Digital Mammography with Computer Added Detection was performed. COMPARISON: Comparison is made with prior examination dated 02/05/2018 and 07/02/2016. FINDINGS: Breast Composition: The breasts are almost entirely fatty. There are no dominant masses or suspicious calcifications. No other significant abnormalities are identified. There has been no significant change since the prior study. BI/SCRN MAMM (CAD)W/MAURO BILAT IMPRESSION: Stable bilateral screening mammogram. Yearly follow-up mammogram recommended. (A) ASSESSMENT CATEGORY: BIRADS Category 1: Negative. A letter regarding these results will be sent to the patient by the facility within 30 days. Approximately 10% of breast cancers are not detected by mammography. A normal mammogram should not delay biopsy of a clinically suspicious abnormality. [id number] Electronically Signed: Theron Blair MD at 8:19 EST ,
== END 2022-01-12 23:59 | disposition home or self-care (01) ==
PROVIDERS: PCP Family Medicine; Referring Provider Nurse Practitioner Women's Health; Visit Provider Nurse Practitioner Women's Health
DX: Z12.31 Encounter for screening mammogram for malignant neoplasm of breast (principal)
CPT/HCPCS: 77063; 77067

== ENCOUNTER 2022-01-14 15:28 | Outpatient (CLI) | payer BC, SELFPAY ==
--- NOTE | 2022-01-14 15:30 | US_ITS ---
STUDY: ULTRASOUND OF THE FEMALE PELVIS - COMPLETE REASON FOR EXAM: Female, 46 years old. pelvic pain TECHNIQUE: Transabdominal COMPARISON: 01.24.19. FINDINGS: The uterus is anteverted and is in a midline position. The uterus measures 11.1x6.6 cm. There is a Nabothian cyst of the cervix. The endometrium measures 3 mm in thickness, and is hyperechoic. There is no demonstrated endometrial mass. There is no demonstrated myometrial mass. I.U.D. - The patient does have an I.U.D. There is nonvisualization of the right ovary due to overlying bowel gas. The left ovary is visualized. The left ovary measures 4.7 x 4 cm. There is 3.2 cm left ovarian cyst with a 1cm calcification. There is no visualized left adnexal mass or complex lesion. There is normal arterial and normal venous vascularity. There is no fluid in the cul-de-sac. Urinary bladder volume is 200 cc. US/Transvaginal Non- IMPRESSION: IUD noted. There is a Nabothian cyst of the cervix. Left ovary cyst with a calcification can be see in ovarian dermoids. Electronically Signed: Gregorio Marquez MD at 19:35 EST Reading Location ID and State: [facility] / [place] , Service support ,
--- NOTE | 2022-01-14 15:30 | US_ITS ---
STUDY: ULTRASOUND OF THE FEMALE PELVIS - COMPLETE REASON FOR EXAM: Female, 46 years old. pelvic pain TECHNIQUE: Transabdominal COMPARISON: 01.24.19. FINDINGS: The uterus is anteverted and is in a midline position. The uterus measures 11.1x6.6 cm. There is a Nabothian cyst of the cervix. The endometrium measures 3 mm in thickness, and is hyperechoic. There is no demonstrated endometrial mass. There is no demonstrated myometrial mass. I.U.D. - The patient does have an I.U.D. There is nonvisualization of the right ovary due to overlying bowel gas. The left ovary is visualized. The left ovary measures 4.7 x 4 cm. There is 3.2 cm left ovarian cyst with a 1cm calcification. There is no visualized left adnexal mass or complex lesion. There is normal arterial and normal venous vascularity. There is no fluid in the cul-de-sac. Urinary bladder volume is 200 cc. US/Pelvic (Non ) IMPRESSION: IUD noted. There is a Nabothian cyst of the cervix. Left ovary cyst with a calcification can be see in ovarian dermoids. Electronically Signed: Gregorio Marquez MD at 19:35 EST Reading Location ID and State: [facility] / [place] , Service support ,
== END 2022-01-14 23:59 | disposition home or self-care (01) ==
LOC: US 15:29
PROVIDERS: PCP Family Medicine; Referring Provider Nurse Practitioner Women's Health; Visit Provider Nurse Practitioner Women's Health
DX: R10.2 Pelvic and perineal pain (principal); N80.0 Endometriosis of uterus
CPT/HCPCS: 76830; 76856

== ENCOUNTER 2022-01-30 10:07 | Day surgery (SDC) | payer BC, SELFPAY ==
[2022-01-30] VITALS (9 sets, daily range): BP systolic 107–180; BP diastolic 76–93; PULSE 59–88; RESP 16–18; TEMP 36.1–36.9; O2SAT 98–100; BMI 52.0
--- NOTE | 2022-01-30 10:26 | CT_ITS ---
STUDY: CT ABDOMEN AND PELVIS WITH CONTRAST REASON FOR EXAM: Female, 46 years old. Right lower quadrant pain. History of prior renal calculi. RADIATION DOSAGE (If Supplied By Facility): CTDIvol = ( 18.74 ) mGy, DLP = ( 1281.21 ) mGycm TECHNIQUE: Transaxial images were obtained from the dome of the diaphragm to the symphysis pubis without oral contrast. IV 100mL Isovue-300 was administered. Sagittal and coronal images were reconstructed. Individualized dose optimization techniques were used for this CT. COMPARISON: Comparison is made with prior study dated 05/06/2019. FINDINGS: The visualized lung bases are unremarkable. The visualized portions of the heart are within normal limits. Normal liver. Normal gallbladder and extrahepatic biliary system. Normal spleen. Normal pancreas. Normal bilateral adrenal glands. Mild degree of right hydronephrosis and right hydroureter with perinephric and periureteric stranding due to a 7.3 mm x 3 mm calculus in the distal portion of the right ureter. There is a 4.3 mm calculus in the upper pole calyx of the left kidney. Normal visualized stomach. Normal small intestine. Normal colon. The appendix is visualized and appears normal. There is scattered atherosclerotic calcification of the abdominal aorta, without a demonstrated aneurysm. Normal inferior vena cava. Normal retroperitoneum. Normal urinary bladder. IUD is seen within the uterus. Small follicles are seen in the left ovary. Normal abdominal wall. Disc space narrowing and disc degeneration at the L4-L5 and L5-S1 levels. Posterior spondylosis at the L5-S1 level causing spinal stenosis. CT/Abdomen/Pelvis W IV Cont ONLY IMPRESSION: 7.3 mm x 3 mm calculus in the distal portion of the right ureter causing a mild degree of right hydronephrosis and right hydroureter with evidence of perinephric and periureteric stranding. Electronically Signed: Theron Blair MD at 11:36 EST ,
[2022-01-30] MEDS: Morphine 4 MG/ML Syringe IV (10:38)
[2022-01-30] MEDS: Ondansetron 4 MG/2 ML Vial IV (10:38)
[2022-01-30 10:46] LABS: Mucous, Urine 0 SEEN /hpf (<or=2+)
[2022-01-30 10:50] LABS: Absolute Lymphocyte Count 1.33 X10^3/uL (0.83-4.51); Absolute Neutrophil Count 5.3 X10^3/uL (2.0-7.7); Basophil# 0.03 X10^3/uL; Basophil% 0.4 % (0-1); Eosinophil# 0.16 X10^3/uL; Eosinophils% 2.2 % (0-5); Hematocrit 41.9 % (37-47); Hemoglobin 13.6 g/dL (12.0-15.0); Lymphocyte # 1.33 X10^3/ul (0.83-4.51); Lymphocyte % 18.3 % (19-41); Mean Corp Hgb Conc 32.5 g/dL (32-36); Mean Corpuscular Hgb 29.2 pg (27.0-32.0); Mean Corpuscular Volume 90.1 fL (81-99); Mean Platelet Vol. 10.5 fl (6.2-12.0); Monocyte# 0.45 X10^3/uL; Monocyte% 6.2 % (0-10); NRBC Flagged by Analyzer 0 % (0-5); Neutrophil # 5.28 X10^3/uL (2.7-7.7); Neutrophil % 72.5 % (47-70); Platelet Count 260 K/mm3 (150-450); RBC Distribution Width CV 12.9 % (11.6-14.6); RBC Distribution Width SD 42.5 fl (35.1-43.9); Red Blood Count 4.65 M/mm3 (4.2-5.4); White Blood Count 7.3 K/mm3 (4.4-11.0)
[2022-01-30 10:51] LABS: Color, Urine Yellow (Yellow); Glucose, Dipstick Normal (Normal); Ketone-Dipstick Negative (Negative); Leukocyte Esterase-Dipstick 25 /ul (Negative); Nitrite-Dipstick Negative (Negative); Occult Blood-Urine 250 /ul (Negative); Protein-Dipstick 30 mg/dl (Negative); Specific Gravity, Urine 1.025 (1.002-1.030); Urine Bilirubin Dipstick Negative (Negative); Urine Clarity Sl. Cloudy (Clear); Urine Urobilinogen Normal (Normal)
[2022-01-30 10:59] LABS: Bacteria 1+ /hpf (None Seen); Red Blood Cells-Urine 25-50 SEEN /hpf (0-5); Squamous Epithelial Cells - UA 0-5 SEEN /hpf (5-10); White Blood Cells 0-5 SEEN /hpf (0-5)
[2022-01-30 11:05] LABS: ALB/GLOB Ratio 1.2 RATIO (0.9-2.4); AST(SGOT) 25 U/L (15-37); Alanine Aminotransfer ALT/SGPT 32 U/L (13-56); Albumin, Serum 4.1 g/dL (3.2-5.0); Alkaline Phosphatase 46 U/L (45-117); Anion Gap 4 (5-15); BUN 32 mg/dL (7-18); BUN/Creat Ratio 25.6 RATIO (10-20); Calcium,Total 9.5 mg/dL (8.5-10.1); Chloride 109 mmol/L (98-107); Creatinine, Serum 1.25 mg/dL (0.55-1.02); EST Glomerular Filtration Rate 49 mL/min (>60); Est Glom Filt Rate - Afr Amer 59 mL/min (>60); Estimated Creatinine Clearance 43.53 ml/min; Globulin 3.4 g/dL (2.2-4.2); Glucose 206 mg/dL (74-106); Lipase 142 U/L (73-393); Potassium 4.2 mmol/L (3.5-5.1); Protein, Total 7.5 g/dL (6.4-8.2); Sodium Level 139 mmol/L (136-145)
[2022-01-30] MEDS: HYDROmorphone 0.5 MG/0.5 ML SYRINGE IV (12:05)
--- NOTE | 2022-01-30 12:14 | EDS_ITS ---
HPI HPI - GI History of Present Illness Chief Complaint: Abd Pain Narrative Narrative: 46-year-old female presenting with abdominal pain. She states that she is currently scheduled to have her uterus out due to adenomyosis. Patient states this is scheduled for February with Dr. Ambrosio. Patient notes that her pain is a little bit different and feels like it has moved to the right lower quadrant. She denies urinary or vaginal complaints. She has no constipation or diarrhea. She is not had a fever. She states that the pain always seems to be there but waxes and wanes in severity. She has associated symptoms of nausea. Patient has distant history of kidney stone. She does not have a urologist [facility] Medical History Adenomyosis Anxiety and depression Asthma BMI greater than 40 Diabetes Easy bruisability Essential hypertension Fatigue Fibroid, uterine Fibroids H/O MTHFR mutation Hyperlipemia IBS (irritable bowel syndrome) Menorrhagia Metrorrhagia Migraine (~06/03/17) Morbid obesity Perimenopausal Statin intolerance Home Medications amlodipine 10 mg PO QHS 04/30/18 [History Last Taken Unknown] atenolol 100 mg PO QHS 04/30/18 [History Last Taken Unknown] citalopram 20 mg PO QHS 04/30/18 [History Last Taken Unknown] topiramate 200 mg PO BID 04/30/18 [History Last Taken Unknown] cholecalciferol (vitamin D3) 25 mcg (1,000 unit) capsule 1,000 unit PO DAILY 03/13/19 [History Last Taken Unknown] fluticasone 250 mcg-salmeterol 50 mcg/dose blistr powdr for inhalation 1 inh INHALATION BID PRN 03/18/20 [History Last Taken Unknown] gabapentin 100 mg capsule 100 mg PO QHS cap 03/18/20 [History Last Taken Unknown] chlordiazepoxide-clidinium 5 mg-2.5 mg capsule 1 cap PO DAILY cap 11/14/21 [History Last Taken Unknown] fenofibrate micronized 130 mg capsule 130 mg PO DAILY cap 01/06/22 [History Last Taken Unknown] insulin glargine 100 unit-lixisenatide 33 mcg/mL subcutaneous pen 60 unit SC QHS PRN ml 01/06/22 [History Last Taken Unknown] eptinezumab-jjmr 100 mg/mL intravenous solution mg .ROUTE 01/08/22 [History Last Taken Unknown] levonorgestrel 20.1 mcg/24 hrs (6 yrs) 52 mg intrauterine device 1 device INTRAUTERINE ONCE 01/08/22 [History Last Taken Unknown] nabumetone 500 mg tablet 500 mg PO BID #30 tab 01/20/22 [Rx Last Taken Unknown] Allergy/AdvReac Type Severity Reaction Status Date / Time lisinopril Allergy Mild Unknown Verified 01/30/22 10:08 aspartame Allergy Shortness Verified 01/30/22 10:08 of breath Penicillins Allergy Diarrhea Verified 01/30/22 10:08 shellfish derived Allergy Angioedema Verified 01/30/22 10:08 Sulfa (Sulfonamide Allergy Rash Verified 01/30/22 10:08 Antibiotics) metformin AdvReac Intermediate Nausea Verified 01/30/22 10:08 Jhcsroe-QIE-KjU Reductase AdvReac Intermediate Diarrhea Verified 01/30/22 10:08 Inhibitor [Dbkpnyx-Tox-Gnl Reductase Inhibitor] Family History Father Heart disease Grandmother Breast cancer Surgical History History of right oophorectomy History of tonsillectomy Social History number of children: 2 current occupational status: employed 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 Smoking Status: Never smoker alcohol intake: current details: social substance use type: does not use caffeine: Yes what type of physical activity do you participate in: none seatbelt use: always additional social history: Carly Washburn 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 [facility] ED Constitutional Constitutional ED: Denies fever(s) ENT ENT ED: Denies rhinorrhea or sore throat Cardiovascular Cardiovascular: Denies chest pain or palpitations Respiratory/Chest Respiratory/Chest: Denies cough, dyspnea or sputum Gastrointestinal Gastrointestinal: Reports abdominal pain and nausea; Denies constipation or diarrhea Genitourinary Genitourinary ED: Denies dysuria or hematuria Musculoskeletal Musculoskeletal: Denies arthralgias or myalgias Integumentary Denies rash Neurologic Neurologic: Denies headache(s), paresthesias or weakness Psychiatric Psychiatric: Denies anxiety or depression EXAM Physical Exam Const Vital Signs: 03/04/22 10:08 Temperature 96.9 F L Temperature Source Temporal Pulse Rate 59 L Respiratory Rate 17 Blood Pressure 180/90 H Blood Pressure Mean 120 Pulse Ox 100 Oxygen Delivery Method Room Air Positive obese General Appearance ED: NAD; Negative for pallor Nutritional Appearance: obese HEENT Reports moist mucous membranes normocephalic and atraumatic Eyes PERRL and EOMs intact bilaterally Resp normal respiratory effort and clear to auscultation bilaterally Cardio regular rate and regular rhythm GI non-distended Palpation: soft and tender RLQ Back/Spine General Back: CVA tenderness right Neuro Sensorium / Orientation: alert, oriented to person, oriented to place and oriented to time Psych mental status grossly normal Skin General Skin Exam: Negative for jaundice or pallor Rashes: no rashes MDM MDM MDM Narrative Medical decision making narrative: Patient presenting with right lower quadrant pain. Has associated nausea. She states she is currently scheduled for hysterectomy next month but the pain is localized to the right lower quadrant. Patient was given morphine and Zofran and blood work was obtained. CBC is unremarkable. CMP shows normal liver enzymes however her creatinine is slightly elevated 1.25. CT of the abdomen pelvis performed with IV contrast shows a 7.3 mm x 3 mm calculus in the distal portion of the right ureter causing amild degree of right hydronephrosis and right hydroureter with evidence of perinephric and periureteric stranding. Patient's urinalysis does show hematuria without infection. On reevaluation the patient is still having 8 of 10 pain and states that the morphine did not have any effect. She was given Dilaudid 0.5 mg IV. Patient discussed with Dr. Hilton who stated that he would take the patient to the OR for stent. Patient was amenable to this. Last meal was about 830 this morning. Patient transferred in stable condition. Impression: 1. Right ureteral calculi 2. Hematuria 3. Hydronephrosis Lab Data Attestation: I reviewed the patient's lab results. Labs: Laboratory Results - last 24 hr 01/30/22 01/30/22 01/30/22 10:27 10:27 10:42 WBC 7.3 RBC 4.65 Hgb 13.6 Hct 41.9 MCV 90.1 MCH 29.2 MCHC 32.5 RDW Std Deviation 42.5 RDW Coeff of Margarita 12.9 Plt Count 260 MPV 10.5 Immature Gran % (Auto) 0.400 Neut % (Auto) 72.5 H Lymph % (Auto) 18.3 L [place] % (Auto) 6.2 Eos % (Auto) 2.2 Baso % (Auto) 0.4 Absolute Neuts (auto) 5.3 Absolute Lymphs (auto) 1.33 Nucleated RBC % 0 Sodium 139 Potassium 4.2 Chloride 109 H Carbon Dioxide 26.0 Anion Gap 4 L BUN 32 H Creatinine 1.25 H Estim Creat Clear Calc 43.53 Est GFR (MDRD) Af Amer 59 L Est GFR (MDRD) Non-Af 49 L BUN/Creatinine Ratio 25.6 H Glucose 206 H Calcium 9.5 Total Bilirubin 0.40 AST 25 ALT 32 Alkaline Phosphatase 46 Total Protein 7.5 Albumin 4.1 Globulin 3.4 Albumin/Globulin Ratio 1.2 Lipase 142 Urine Color Yellow Urine Clarity Sl. Cloudy Urine pH 6.0 Ur Specific [place] 1.025 Urine Protein 30 H Urine Glucose (UA) Normal Urine Ketones Negative Urine Occult Blood 250 H Urine Nitrite Negative Urine Bilirubin Negative Urine Urobilinogen Normal Ur Leukocyte Esterase 25 H Urine RBC 25-50 SEEN Urine WBC 0-5 SEEN Ur Squamous Epith Cells 0-5 SEEN Urine Bacteria 1+ Urine Mucus 0 SEEN Radiography Diagnostic Testing: Clinical Impression(s) from Imaging Studies Abdomen/Pelvis CT 01/30/22 10:26 IMPRESSION: 7.3 mm x 3 mm calculus in the distal portion of the right ureter causing a mild degree of right hydronephrosis and right hydroureter with evidence of perinephric and periureteric stranding. Electronically Signed: Theron Blair MD at 11:36 EST , Discharge Plan Triage Chief Complaint: Abd Pain ED Provider: Kwaku James Dx/Rx/DC Orders Prescriptions: No Action Soliqua 100/33 100 unit-33 mcg/mL insulin pen 60 unit SC QHS PRNRF: 0 cholecalciferol (vitamin D3) 1,000 unit capsule 1,000 unit capsule 1,000 unit PO DAILY RF: 0 gabapentin 100 mg capsule 100 mg PO QHS RF: 0 fluticasone propion-salmeterol [Advair Diskus] 250-50 mcg/dose blister with device 1 inh INHALATION BID PRN (Reason: Shortness Of Breath) RF: 0 fenofibrate micronized 130 mg capsule 130 mg PO DAILY RF: 0 Liletta 20.1 mcg/24 hrs (6 yrs) 52 mg intrauterine device 1 device intrauterine ONCE RF: 0 Vyepti 100 mg/mL solution .Route RF: 0 nabumetone 500 mg tablet 500 mg PO BID Qty: 30 RF: 5 atenolol 100 MG tablet 100 mg PO QHS RF: 0 citalopram 20 MG tablet 20 mg PO QHS RF: 0 amlodipine 10 MG tablet 10 mg PO QHS RF: 0 topiramate 100 MG tablet 200 mg PO BID RF: 0 chlordiazepoxide-clidinium 5-2.5 mg capsule 1 cap PO DAILY RF: 0 Primary Care Provider: Moustapha Bower
[2022-01-30 13:56] LABS: Bedside Glucose 189 mg/dL (74-106)
--- NOTE | 2022-01-30 14:03 | SUR.PREOP ---
Pt denies preg test, pt denies ability of
--- NOTE | 2022-01-30 14:15 | HP.PCM_ITS ---
HPI - General HPI Narrative 46-year-old female who presents with a very large stone in the mid right ureter causing obstruction and severe hydronephrosis and severe pain she is getting be brought to the emergency room and then brought from the emergency room for cystoscopy stent placement today and discharge after the stent placement. Then we will plan for outpatient management of the stone. [facility] Medical History (Updated 01/30/22 @ 14:[address] Kenneth Hilton MD) Adenomyosis Anxiety and depression Asthma BMI greater than 40 Diabetes Easy bruisability Essential hypertension Fatigue Fibroid, uterine Fibroids H/O MTHFR mutation Hyperlipemia IBS (irritable bowel syndrome) Menorrhagia Metrorrhagia Migraine (~06/03/17) Morbid obesity Perimenopausal Sleep apnea Statin intolerance Home Medications amlodipine 10 mg PO QHS 04/30/18 [History Last Taken Unknown] atenolol 100 mg PO QHS 04/30/18 [History Last Taken Unknown] citalopram 20 mg PO QHS 04/30/18 [History Last Taken Unknown] topiramate 200 mg PO BID 04/30/18 [History Last Taken Unknown] cholecalciferol (vitamin D3) 25 mcg (1,000 unit) capsule 1,000 unit PO DAILY 03/13/19 [History Last Taken Unknown] fluticasone 250 mcg-salmeterol 50 mcg/dose blistr powdr for inhalation 1 inh INHALATION DAILY PRN PRN 03/18/20 [History Last Taken Unknown] gabapentin 100 mg capsule 100 mg PO QHS cap 03/18/20 [History Last Taken Unknown] chlordiazepoxide-clidinium 5 mg-2.5 mg capsule 1 cap PO DAILY cap 11/14/21 [History Last Taken Unknown] fenofibrate micronized 130 mg capsule 130 mg PO DAILY cap 01/06/22 [History Last Taken Unknown] insulin glargine 100 unit-lixisenatide 33 mcg/mL subcutaneous pen 60 unit SC QHS ml 01/06/22 [History Last Taken Unknown] eptinezumab-jjmr 100 mg/mL intravenous solution mg .ROUTE 01/08/22 [History Last Taken Unknown] levonorgestrel 20.1 mcg/24 hrs (6 yrs) 52 mg intrauterine device 1 device INTRAUTERINE ONCE 01/08/22 [History Last Taken Unknown] nabumetone 500 mg PO BID PRN PRN 01/30/22 [History Last Taken Unknown] Allergy/AdvReac Type Severity Reaction Status Date / Time lisinopril Allergy Mild Unknown Verified 01/30/22 13:43 aspartame Allergy Shortness Verified 01/30/22 13:43 of breath Penicillins Allergy Diarrhea Verified 01/30/22 13:43 shellfish derived Allergy Angioedema Verified 01/30/22 13:43 Sulfa (Sulfonamide Allergy Rash Verified 01/30/22 13:43 Antibiotics) metformin AdvReac Intermediate Nausea Verified 01/30/22 13:43 Hwkyyzg-SAE-VvN Reductase AdvReac Intermediate Diarrhea Verified 01/30/22 13:43 Inhibitor [Qqcwrsj-Rld-Aot Reductase Inhibitor] Family History Father Heart disease Grandmother Breast cancer Surgical History History of right oophorectomy History of tonsillectomy Social History number of children: 2 current occupational status: employed 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 Smoking Status: Never smoker alcohol intake: current details: social substance use type: does not use caffeine: Yes what type of physical activity do you participate in: none seatbelt use: always additional social history: Carly Washburn 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 Constitutional Constitutional: Denies chills, fever(s) or malaise Eyes Eyes: Denies blurry vision or change in vision ENT HEENT: Reports none Cardiovascular Cardiovascular: Denies chest pain or palpitations Respiratory/Chest Respiratory/Chest: Denies cough or shortness of breath with exertion Gastrointestinal Gastrointestinal: Denies abdominal pain, constipation or diarrhea Musculoskeletal Musculoskeletal: Denies back pain, joint stiffness or joint swelling Integumentary Integumentary: Denies dry skin, jaundice, lesions or rash Neurologic Neurologic: Denies confusion, syncope or weakness Psychiatric Psychiatric: Reports none; Denies anxiety or depression Endocrine Endocrinology: Denies excessive sweating, fatigue or flushing Hematologic/Lymphatic Hematologic/Lymphatic: Denies anemia, easy bleeding or easy bruising Vital Signs Vital Signs Vital Signs: 01/30/22 10:08 01/30/22 13:28 01/30/22 13:58 Temperature 96.9 F L 98 F Temperature Source Temporal Temporal Pulse Rate 59 L 88 Respiratory Rate 17 18 Respiratory Pattern Normal Blood Pressure 180/90 H 133/76 H Blood Pressure Mean 120 95 Pulse Ox 100 99 Oxygen Delivery Method Room Air Room Air Weight Weight: 129.2 kg Body Mass Index (BMI) 52.0 Physical Exam Const alert and oriented x3 General Appearance: cooperative HEENT normocephalic, head/scalp atraumatic, EAC's normal and TM's normal bilaterally Eyes PERRL and EOMs intact bilaterally Pupil: sluggish Neck no lymphadenopathy, supple and no JVD General: trachea midline Lymph Lymphatic: no lymphadenopathy noted, lymphedema and lymphadenopathy Resp normal respiratory effort, normal air movement and clear to auscultation bilaterally Cardio regular rate, regular rhythm and peripheral pulses 2+ throughout GI soft to palpation, non-tender and non-distended Extremity normal capillary refill and no clubbing, cyanosis or edema General Extremity: no tenderness to palpation of joints or extremities Skin no rashes or lesions noted General Skin Exam: turgor normal Lesions: no lesions Rashes: no rashes Neuro CN's II-XII intact bilaterally Speech: speech normal Motor Exam: strength 5/5 throughout; Negative for general weakness Psych thought process normal, cooperative and affect normal Appearance: appropriate Results Lab / Micro Data Result Diagrams: 01/30/22 10:27 01/30/22 10:27 Labs: Laboratory Results - last 24 hr 01/30/22 10:27: WBC 7.3, RBC 4.65, Hgb 13.6, Hct 41.9, MCV 90.1, MCH 29.2, MCHC 32.5, RDW Std Deviation 42.5, RDW Coeff of Margarita 12.9, Plt Count 260, MPV 10.5, Immature Gran % (Auto) 0.400, Neut % (Auto) 72.5 H, Lymph % (Auto) 18.3 L, [place] % (Auto) 6.2, Eos % (Auto) 2.2, Baso % (Auto) 0.4, Absolute Neuts (auto) 5.3, Absolute Lymphs (auto) 1.33, Nucleated RBC % 0 01/30/22 10:27: Sodium 139, Potassium 4.2, Chloride 109 H, Carbon Dioxide 26.0, Anion Gap 4 L, BUN 32 H, Creatinine 1.25 H, Estim Creat Clear Calc 43.53, Est GFR (MDRD) Af Amer 59 L, Est GFR (MDRD) Non-Af 49 L, BUN/Creatinine Ratio 25.6 H , Glucose 206 H, Calcium 9.5, Total Bilirubin 0.40, AST 25, ALT 32, Alkaline Phosphatase 46, Total Protein 7.5, Albumin 4.1, Globulin 3.4, Albumin/Globulin Ratio 1.2, Lipase 142 01/30/22 10:42: Urine Color Yellow, Urine Clarity Sl. Cloudy, Urine pH 6.0, Ur Specific [place] 1.025, Urine Protein 30 H, Urine Glucose (UA) Normal, Urine Ketones Negative, Urine Occult Blood 250 H, Urine Nitrite Negative, Urine Bilirubin Negative, Urine Urobilinogen Normal, Ur Leukocyte Esterase 25 H, Urine RBC 25-50 SEEN, Urine WBC 0-5 SEEN, Ur Squamous Epith Cells 0-5 SEEN, Urine Bact eria 1+, Urine Mucus 0 SEEN 01/30/22 13:53: POC Glucose 189 H Radiology Impression Abdomen/Pelvis CT 01/30/22 10:26 IMPRESSION: 7.3 mm x 3 mm calculus in the distal portion of the right ureter causing a mild degree of right hydronephrosis and right hydroureter with evidence of perinephric and periureteric stranding. Electronically Signed: Theron Blair MD at 11:36 EST , Assessment & Plan Assessment/Plan (1) Calculus of right ureter: PLAN: Large stone in the mid right ureter plan for cystoscopy right stent placement.
--- NOTE | 2022-01-30 14:17 | DCINST_ITS ---
Discharge Instructions Diet Discharge Diet: No restrictions Activity Discharge Activity: Return to Normal Activity and May Not Drive (while taking narcotic pain medications.) Dressing / Incision Call your doctor if you observe: Fever of 101 or Higher Follow Up Care Please Follow Up With: Kenneth Hilton MD When: Call [phone] for an appointment Test Results: Call my office [phone] to get set up for Surgery next week. Discharge Plan Admission Attending Provider: Kenneth Hilton Primary Care Provider: Moustapha Bower Discharge Orders/Prescriptions Prescriptions: No Action Soliqua 100/33 100 unit-33 mcg/mL insulin pen 60 unit SC QHS RF: 0 cholecalciferol (vitamin D3) 1,000 unit capsule 1,000 unit capsule 1,000 unit PO DAILY RF: 0 gabapentin 100 mg capsule 100 mg PO QHS RF: 0 fluticasone propion-salmeterol [Advair Diskus] 250-50 mcg/dose blister with d evice 1 inh INHALATION DAILY PRN PRN (Reason: Shortness Of Breath) RF: 0 fenofibrate micronized 130 mg capsule 130 mg PO DAILY RF: 0 Liletta 20.1 mcg/24 hrs (6 yrs) 52 mg intrauterine device 1 device intrauterine ONCE RF: 0 Vyepti 100 mg/mL solution .Route RF: 0 atenolol 100 MG tablet 100 mg PO QHS RF: 0 citalopram 20 MG tablet 20 mg PO QHS RF: 0 amlodipine 10 MG tablet 10 mg PO QHS RF: 0 topiramate 100 MG tablet 200 mg PO BID RF: 0 chlordiazepoxide-clidinium 5-2.5 mg capsule 1 cap PO DAILY RF: 0 nabumetone 500 mg tablet 500 mg PO BID PRN PRN (Reason: Pain) RF: 0
[2022-01-30] MEDS: 0.9% Normal Saline 1,000 ML 30 ML IV (14:20)
[2022-01-30] MEDS: Cefazolin 1 GM/50 ML BAG IV (15:53)
--- NOTE | 2022-01-30 16:16 | OP.PCM_ITS ---
Report of Operation Date of Procedure: 01/30/22 Pre-Operative Diagnosis: Right ureteral calculi Post-Operative Diagnosis: Same Surgery/Procedure Performed:: Cystoscopy and right stent placement Description of Surgical Findings:: Patient was taken back to the operating room after induction of general anesthesia, the patient was placed in dorsolithotomy position. The urethra and genitals were prepped and draped in usual sterile fashion. Using a 21 [place] rigid cystourethroscope the entire length of the urethra was normal then went into the bladder. Identified the trigone the left and right ureteral orifice. I then cannulated the Right orifice and advanced a wire up into the kidney. I then backloaded a 5 [place] open ended catheter over the wire and injected contrast to delineate the anatomy. After the retrograde was performed I then used fluoroscopic images and guidance to advanced a wire up into the kidney and over the 0.038 glidewire I advanced a 6 [place] by 26 cm double pigtail stent. I then pulled the 0.038 Glidewire off and the stent coiled in the kidney bladder good position. The bladder was then drained. We confirmed the position of the stent by fluoroscopy. Patient anesthetic was reversed and was taken back to the PACU in good condition. Surgeon: janell Type of Anesthesia: General Drains: stent Admit VTE Documentation VTE Present on Admission: No VTE Mechan Device Prophylaxis: SCD's VTE Pharm Prophylaxis ordered?: No
[2022-01-30] MEDS: Ketorolac 30 MG/ML Syringe IV (16:35)
== END 2022-01-30 23:59 | disposition home or self-care (01) ==
LOC: ED 12:42 → SDC 12:53 → ACINP 12:53
PROVIDERS: Emergency Provider Student in an Organized Health Care Education/Training Program; PCP Family Medicine; Visit Provider Urology
PROC: (CPT 52332; principal; 2022-01-30 16:10)
DX: N13.2 Hydronephrosis with renal and ureteral calculous obstruction (principal); E66.01 Morbid (severe) obesity due to excess calories; Z68.43 Body mass index [BMI] 50.0-59.9, adult; E72.12 Methylenetetrahydrofolate reductase deficiency; E11.9 Type 2 diabetes mellitus without complications; Z79.4 Long term (current) use of insulin; I10 Essential (primary) hypertension; E78.5 Hyperlipidemia, unspecified; N80.0 Endometriosis of uterus; J45.909 Unspecified asthma, uncomplicated; F41.9 Anxiety disorder, unspecified; F32.9 Major depressive disorder, single episode, unspecified; G47.30 Sleep apnea, unspecified; Z79.899 Other long term (current) drug therapy; Z87.442 Personal history of urinary calculi; Z86.16 Personal history of COVID-19
CPT/HCPCS: 52332; 74177; 76000; 80053; 81001; 82962; 83690; 85025; 99284; J7030; Q9967; A4216; C1769; C2617; J2405

== ENCOUNTER 2022-02-06 10:55 | Day surgery (SDC) | payer BC, SELFPAY ==
--- NOTE | 2022-02-06 11:08 | RAD_ITS ---
STUDY: X-RAY - ABDOMEN/PELVIS REASON FOR EXAM: Female, 46 years old. Preop for stent retrieval TECHNIQUE: 3 AP views COMPARISON: None. FINDINGS: Normal visualized lung bases. Right-sided JJ stent in satisfactory position. There is also evidence of an IUD overlying the lower sacrum There is an unremarkable bowel gas pattern. There is no demonstrated free abdominal air. The visualized liver, spleen and kidneys are grossly normal in size and morphology. Normal soft tissue structures. Normal visualized osseous structures. RAD/Abdomen Single View IMPRESSION: No acute findings Electronically Signed: Sanya Gomez MD at 16:13 EST ,
[2022-02-06 11:40] VITALS: BP 133/73; PULSE 68; RESP 16; TEMP 36.4; O2SAT 99; BMI 51.2
[2022-02-06] MEDS: Lactated Ringers 1,000 ML 15 ML IV (11:45)
[2022-02-06 11:50] LABS: Internal QC Validated? YES +Cl - CLEAR BKGD; Pregnancy, Urine Negative Negative
--- NOTE | 2022-02-06 13:05 | CALC_PTH ---
PATIENT: DIMA BROOKS LOC: [facility] [place][id number] AGE/SX: 46/F ROOM: RE02/06/[address]: Dr. Kenneth Hilton MD : 1975 BED: DIS: 02/06/2022 SPEC #: [id number] RECD: 02/09/22 07:15 STATUS: SAM ELMORE #: [id number] ANA: 02/06/22 13:[address]: Kenneth Hilton DEPT: SURGICAL PATHOLOGY RECD BY: Kinga Blair ENTERED: 02/09/22 08:45 SP TYPE: Calculi OTHR DR: Dr. Moustapha Bower, DO Tissues: CALCULI Procedures: Surgery Specimen Level I HEADER OPERATION: Cystoscopy, right ureteroscopy, laser of right renal calculi PRE-OP DIAGNOSIS: Right renal calculi TISSUE SUBMITTED: Right ureteral calculi for analysis GROSS DIAGNOSIS Right ureteral calculi, removal: Fragments of unremarkable calculi (gross diagnosis only). AM:yamilet 02/10/2022 COMMENT The calculus is submitted in its entirety for chemical stone analysis. The results from this study will be reported separately. GROSS DESCRIPTION Received without fixative labeled with the patient's name and designated right ureteral calculi. The specimen consists multiple fragments of tristan stone covered with a small amount of blood measuring in aggregate 0.5 x 0.1 x 0.1 cm. The entire specimen is submitted for stone analysis. / SJ:yamilet 02/09/2022 CPT: 59537
[2022-02-06] MEDS: Cefazolin 2 GM in 0.9% Normal Saline 100 ML IV (13:17)
--- NOTE | 2022-02-06 13:28 | HP.PCM_ITS ---
HPI - General HPI Narrative DIMA BROOKS, is a 46 F who presents for treatment of right ureteral calculi [facility] Medical History (Updated 02/05/22 @ 08:19 by Birdie Bermudez) Adenomyosis Anxiety Anxiety and depression Asthma Back pain BMI greater than 40 Cardiology follow-up encounter CPAP (continuous positive airway pressure) dependence Diabetes Dietary restriction Easy bruisability Essential hypertension Fatigue Fibroid, uterine Fibroids H/O MTHFR mutation High cholesterol History of echocardiogram History of IBS History of steroid therapy History of stress test Hyperlipemia Hypertension IBS (irritable bowel syndrome) Injury of head and neck Insulin dependent diabetes mellitus Kidney stones Menorrhagia Metrorrhagia Migraine (~06/03/17) Morbid obesity Perimenopausal Shortness of breath on exertion Sleep apnea Statin intolerance Wears glasses Home Medications amlodipine 10 mg PO QHS 04/30/18 [History Last Taken Unknown] atenolol 100 mg PO QHS 04/30/18 [History Last Taken Unknown] citalopram 20 mg PO QHS 04/30/18 [History Last Taken Unknown] topiramate 200 mg PO BID 04/30/18 [History Last Taken Unknown] cholecalciferol (vitamin D3) 25 mcg (1,000 unit) capsule 1,000 unit PO DAILY 03/13/19 [History Last Taken Unknown] fluticasone 250 mcg-salmeterol 50 mcg/dose blistr powdr for inhalation 1 inh INHALATION DAILY PRN PRN 03/18/20 [History Last Taken Unknown] gabapentin 100 mg capsule 100 mg PO QHS cap 03/18/20 [History Last Taken Unknown] chlordiazepoxide-clidinium 5 mg-2.5 mg capsule 1 cap PO DAILY cap 11/14/21 [History Last Taken Unknown] fenofibrate micronized 130 mg capsule 130 mg PO DAILY cap 01/06/22 [History Last Taken Unknown] insulin glargine 100 unit-lixisenatide 33 mcg/mL subcutaneous pen 60 unit SC QHS ml 01/06/22 [History Last Taken Unknown] eptinezumab-jjmr 100 mg/mL intravenous solution 100 mg .ROUTE .[id number] 01/08/22 [History Last Taken Unknown] levonorgestrel 20.1 mcg/24 hrs (6 yrs) 52 mg intrauterine device 1 device INTRAUTERINE ONCE 01/08/22 [History Last Taken Unknown] nabumetone 500 mg PO BID PRN PRN 01/30/22 [History Last Taken Unknown] oxycodone-acetaminophen [Percocet] 1 tab PO Q4H PRN 02/05/22 [History Last Taken Unknown] ciprofloxacin HCl [Cipro] 500 mg PO BID #6 tab 02/06/22 [Rx Last Taken Unknown] oxycodone-acetaminophen 1 tab PO Q6H PRN 7 Days #14 tab 02/06/22 [Rx Last Taken Unknown] Allergy/AdvReac Type Severity Reaction Status Date / Time lisinopril Allergy Mild Unknown Verified 02/05/22 08:04 aspartame Allergy Shortness Verified 02/05/22 08:04 of breath Penicillins Allergy Diarrhea Verified 02/05/22 08:04 shellfish derived Allergy Angioedema Verified 02/05/22 08:04 Sulfa (Sulfonamide Allergy Rash Verified 02/05/22 08:04 Antibiotics) metformin AdvReac Intermediate Nausea Verified 02/05/22 08:04 Xbqeipd-WFB-PwB Reductase AdvReac Intermediate Diarrhea Verified 02/05/22 08:04 Inhibitor [Hjubhdj-Jbp-Wfw Reductase Inhibitor] Family History Father Heart disease Grandmother Breast cancer Surgical History (Updated 02/05/22 @ 08:19 by Birdie Bermudez) History of right oophorectomy History of tonsillectomy Hx of cystoscopy Hx of LASIK Hx of wisdom tooth extraction Social History number of children: 2 current occupational status: employed 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 Smoking Status: Never smoker alcohol intake: current details: social substance use type: does not use caffeine: Yes what type of physical activity do you participate in: none seatbelt use: always additional social history: Carly Lozadaian 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
--- NOTE | 2022-02-06 13:28 | PCM.DC ---
Discharge Instructions Diet Discharge Diet: No restrictions Activity Discharge Activity: Return to Normal Activity and May Not Drive (while taking narcotic pain medications.) Dressing / Incision Call your doctor if you observe: Fever of 101 or Higher Follow Up Care Please Follow Up With: Kenneth Hilton MD When: Call [phone] for an appointment Test Results: Test results from this visit will be discussed in further detail at your follow-up appointment, if applicable. Discharge Plan Admission Primary Reason for Your Visit: KIDNEY STONE Attending Provider: Kenneth Hilton Primary Care Provider: Moustapha Bower Discharge Orders/Prescriptions Prescriptions: New ciprofloxacin HCl [Cipro] 500 mg tablet 500 mg PO BID Qty: 6 RF: 0 oxycodone-acetaminophen 5-325 mg tablet 1 tab PO Q6H PRN (Reason: pain) 7 Days Qty: 14 RF: 0 Continued Soliqua 100/33 100 unit-33 mcg/mL insulin pen 60 unit SC QHS RF: 0 cholecalciferol (vitamin D3) 1,000 unit capsule 1,000 unit capsule 1,000 unit PO DAILY RF: 0 gabapentin 100 mg capsule 100 mg PO QHS RF: 0 fluticasone propion-salmeterol [Advair Diskus] 250-50 mcg/dose blister with device 1 inh INHALATION DAILY PRN PRN (Reason: ASTHMA) RF: 0 fenofibrate micronized 130 mg capsule 130 mg PO DAILY RF: 0 Liletta 20.1 mcg/24 hrs (6 yrs) 52 mg intrauterine device 1 device intrauterine ONCE RF: 0 Vyepti 100 mg/mL solution 100 mg .Route .[id number] RF: 0 atenolol 100 MG tablet 100 mg PO QHS RF: 0 citalopram 20 MG tablet 20 mg PO QHS RF: 0 amlodipine 10 MG tablet 10 mg PO QHS RF: 0 topiramate 100 MG tablet 200 mg PO BID RF: 0 chlordiazepoxide-clidinium 5-2.5 mg capsule 1 cap PO DAILY RF: 0 nabumetone 500 mg tablet 500 mg PO BID PRN PRN (Reason: Pain) RF: 0 oxycodone-acetaminophen [Percocet] 5-325 mg tablet 1 tab PO Q4H PRN (Reason: pain) RF: 0 Referrals / Follow Up: Kenneth Hilton MD [STAFF PHYSICIAN] - Moustapha Bower DO [Primary Care Provider] - Disposition Disposition (needs filled in before D/C Order can be placed): Home, Self Care
--- NOTE | 2022-02-06 13:57 | PCM.OPRPT ---
Report of Operation Date of Procedure: 02/06/22 Pre-Operative Diagnosis: Right ureteral calculi status post stent placement Post-Operative Diagnosis: Same Surgery/Procedure Performed:: Cystoscopy right ureteroscopy laser of stone basket extraction of fragments and right stent placement, Description of Surgical Findings:: Patient was taken back to the operating room at the smooth induction of general anesthesia she was placed in dorsolithotomy position. Went into the bladder with a 21 Indonesian rigid cystourethroscope grabbed the existing stent from the right ureteral orifice under fluoroscopy identified the stone but it was over the pelvic brim so we could not do shockwave lithotripsy so we decided to proceed with ureteroscopy I then pulled this stent out the meatus put a wire up through the stent and then next to the wire I went in with a semirigid ureteroscope was able to get to the stone and lasered the stone little tiny pieces using a 200 ?m laser fiber and then basketed out some of the fragments of the fragments were sent off for analysis once the stone was lasered completely then I backloaded the scope put a stent up into the right kidney and then once a stent was in the right kidney then the stent coiled in the kidney bladder good position plan to see her next week for cystoscopy stent removal and successful laser of the stone and extraction of fragments. Surgeon: janell Type of Anesthesia: General Drains: stent right side Admit VTE Documentation VTE Present on Admission: No VTE Mechan Device Prophylaxis: SCD's VTE Pharm Prophylaxis ordered?: No
[2022-02-06 14:10] VITALS: BP 124/71; BP 133/73; PULSE 72; RESP 16; TEMP 36.6; O2SAT 100
[2022-02-06 14:16] VITALS: BP 120/71; BP 133/73; PULSE 71; RESP 16; O2SAT 100
[2022-02-06] MEDS: Ketorolac 15 MG/ML Vial IV (14:18)
[2022-02-06 14:30] VITALS: BP 112/64; BP 133/73; PULSE 64; RESP 16; O2SAT 100
[2022-02-06 14:32] VITALS: BP 110/65; BP 133/73; PULSE 64; RESP 16; TEMP 36.7; O2SAT 100
[2022-02-06 15:10] VITALS: BP 133/70; BP 133/73; PULSE 70; RESP 16; TEMP 36.3; O2SAT 99
== END 2022-02-06 23:59 | disposition home or self-care (01) ==
LOC: SDC 11:02 → AC 11:02
PROVIDERS: PCP Family Medicine; Referring Provider Urology; Visit Provider Urology
PROC: (CPT 50590; principal; 2022-02-06 12:55)
DX: N20.1 Calculus of ureter (principal); E66.01 Morbid (severe) obesity due to excess calories; Z68.43 Body mass index [BMI] 50.0-59.9, adult; D68.51 Activated protein C resistance; E11.9 Type 2 diabetes mellitus without complications; Z79.4 Long term (current) use of insulin; I10 Essential (primary) hypertension; E78.5 Hyperlipidemia, unspecified; J45.909 Unspecified asthma, uncomplicated; Z79.899 Other long term (current) drug therapy; F41.8 Other specified anxiety disorders; G47.30 Sleep apnea, unspecified
CPT/HCPCS: 52353; 52332; 74018; 81025; 82360; 88300; J7120; C1769; C2617; J2405

== ENCOUNTER 2022-03-03 05:19 | Day surgery (SDC) | payer BC, SELFPAY ==
--- NOTE | 2022-02-25 06:40 | EKG12_ITS ---
Test Reason : PRE OP Blood Pressure : / mmHG Vent. Rate : 066 BPM Atrial Rate : 066 BPM P-R Int : 162 ms QRS Dur : 090 ms QT Int : 418 ms P-R-T Axes : 024 052 -05 degrees QTc Int : 438 ms Normal sinus rhythm Nonspecific T wave abnormality Abnormal ECG Confirmed by MARLYS TONEY, SAUL ([id number]), business editor ARI MACIAS ([id number]) on 02/25/2022 1:36:43 PM Referred By: CESAR Confirmed By:SAUL FRANKEL MD
[2022-02-25 07:31] LABS: Absolute Lymphocyte Count 1.34 X10^3/uL (0.83-4.51); Absolute Neutrophil Count 4.2 X10^3/uL (2.0-7.7); Basophil# 0.02 X10^3/uL; Basophil% 0.3 % (0-1); Eosinophil# 0.21 X10^3/uL; Eosinophils% 3.4 % (0-5); Hematocrit 40.1 % (37-47); Hemoglobin 12.7 g/dL (12.0-15.0); Lymphocyte # 1.34 X10^3/ul (0.83-4.51); Lymphocyte % 21.6 % (19-41); Mean Corp Hgb Conc 31.7 g/dL (32-36); Mean Corpuscular Hgb 27.6 pg (27.0-32.0); Mean Corpuscular Volume 87.2 fL (81-99); Mean Platelet Vol. 10.1 fl (6.2-12.0); Monocyte# 0.44 X10^3/uL; Monocyte% 7.1 % (0-10); NRBC Flagged by Analyzer 0 % (0-5); Neutrophil # 4.15 X10^3/uL (2.7-7.7); Neutrophil % 67.1 % (47-70); Platelet Count 287 K/mm3 (150-450); RBC Distribution Width CV 12.8 % (11.6-14.6); RBC Distribution Width SD 40.7 fl (35.1-43.9); White Blood Count 6.2 K/mm3 (4.4-11.0)
[2022-02-25 07:56] LABS: ALB/GLOB Ratio 1.2 RATIO (0.9-2.4); AST(SGOT) 22 U/L (15-37); Alanine Aminotransfer ALT/SGPT 31 U/L (13-56); Albumin, Serum 3.7 g/dL (3.2-5.0); Alkaline Phosphatase 45 U/L (45-117); Anion Gap 3 (5-15); BUN 32 mg/dL (7-18); BUN/Creat Ratio 27.6 RATIO (10-20); Calcium,Total 9.3 mg/dL (8.5-10.1); Chloride 110 mmol/L (98-107); Creatinine, Serum 1.16 mg/dL (0.55-1.02); EST Glomerular Filtration Rate 53 mL/min (>60); Est Glom Filt Rate - Afr Amer 64 mL/min (>60); Globulin 3.2 g/dL (2.2-4.2); Glucose 186 mg/dL (74-106); Potassium 3.9 mmol/L (3.5-5.1); Protein, Total 6.9 g/dL (6.4-8.2); Sodium Level 139 mmol/L (136-145)
[2022-02-25 08:20] LABS: Hemoglobin A1c 7.1 % (3.8-5.6)
--- NOTE | 2022-03-02 17:10 | HP.PCM_ITS ---
History and Physical Date of Admission: 03/02/22 Intake Vital Signs 02/23/22 15:38 Height 5 ft 2 in Weight: 286 lb BMI 52.3 BP 110/82 H Intake Visit Reasons: [facility] ovarian cystectomy Chief Complaint: pre op [facility] ovarian cystectomy Remote Sensing Technician Required: No Is patient in pain?: No Allergies lisinopril Allergy (Mild, Verified 02/05/22 08:04) Unknown aspartame Allergy (Verified 02/05/22 08:04) Shortness of breath Penicillins Allergy (Verified 02/05/22 08:04) Diarrhea shellfish derived Allergy (Verified 02/05/22 08:04) Angioedema Sulfa (Sulfonamide Antibiotics) Allergy (Verified 02/05/22 08:04) Rash metformin Adverse Reaction (Intermediate, Verified 02/05/22 08:04) Nausea Shdyknd-YEQ-SzO Reductase Inhibitor [Ldstmkr-Rjl-Ycx Reductase Inhibitor] Adverse Reaction (Intermediate, Verified 02/05/22 08:04) Diarrhea Medications amlodipine 10 mg PO QHS 04/30/18 [History Confirmed 02/05/22] atenolol 100 mg PO QHS 04/30/18 [History Confirmed 02/05/22] citalopram 20 mg PO QHS 04/30/18 [History Confirmed 02/05/22] topiramate 200 mg PO BID 04/30/18 [History Confirmed 02/05/22] cholecalciferol (vitamin D3) 25 mcg (1,000 unit) capsule 1,000 unit PO DAILY 03/13/19 [History Confirmed 02/05/22] fluticasone 250 mcg-salmeterol 50 mcg/dose blistr powdr for inhalation 1 inh INHALATION DAILY PRN PRN 03/18/20 [History Confirmed 02/05/22] gabapentin 100 mg capsule 100 mg PO QHS cap 03/18/20 [History Confirmed 02/05/22] chlordiazepoxide-clidinium 5 mg-2.5 mg capsule 1 cap PO DAILY cap 11/14/21 [History Confirmed 02/05/22] fenofibrate micronized 130 mg capsule 130 mg PO DAILY cap 01/06/22 [History Confirmed 02/05/22] insulin glargine 100 unit-lixisenatide 33 mcg/mL subcutaneous pen 60 unit SC QHS ml 01/06/22 [History Confirmed 02/05/22] eptinezumab-jjmr 100 mg/mL intravenous solution 100 mg .ROUTE .[id number] 01/08/22 [History Confirmed 02/05/22] levonorgestrel 20.1 mcg/24 hrs (6 yrs) 52 mg intrauterine device 1 device INTRAUTERINE ONCE 01/08/22 [History Confirmed 02/05/22] nabumetone 500 mg PO BID PRN PRN 01/30/22 [History Confirmed 02/05/22] Is last menstrual period known: No Post menopausal: No Patient : No : No PFSH Medical History Adenomyosis Anxiety Anxiety and depression Asthma Back pain BMI greater than 40 Cardiology follow-up encounter CPAP (continuous positive airway pressure) dependence Diabetes Dietary restriction Easy bruisability Essential hypertension Fatigue Fibroid, uterine Fibroids H/O MTHFR mutation High cholesterol History of echocardiogram History of IBS History of steroid therapy History of stress test Hyperlipemia Hypertension IBS (irritable bowel syndrome) Injury of head and neck Insulin dependent diabetes mellitus Kidney stones Menorrhagia Metrorrhagia Migraine (~06/03/17) Morbid obesity Perimenopausal Shortness of breath on exertion Sleep apnea Statin intolerance Wears glasses Surgical History (Updated 02/23/22 @ 15:39 by Patricia Lewis) H/O lithotripsy History of right oophorectomy History of tonsillectomy Hx of cystoscopy Hx of LASIK Hx of wisdom tooth extraction Family History Father Heart disease Grandmother Breast cancer Social History number of children: 2 current occupational status: employed 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 Female Reproductive History Menopausal Symptoms: No hot flashes, No night sweats, No difficulty concentrating and No change in libido Pregancy History 2 Elective abortions Hx Para 2 Spontaneous abortions Hx # Term Pregnancies Ectopic pregnancies Hx # Pregnancies Multiple births # of living children 2 ROS Const Constitutional: Denies fatigue, night sweats, weight gain or weight loss ENT ENT: Reports system reviewed and no additional complaints, except as documented Cardio Card: Denies chest pain Resp Resp: Denies cough or dyspnea GI GI: Reports as per HPI; Denies constipation, nausea or vomiting : Reports as per HPI and urinary incontinence; Denies hot flashes, nipple discharge, vaginal discharge, vaginal dryness, vaginal odor or vaginal pruritus Musc Musc: Reports back pain; Denies arthralgias or muscle weakness Skin Skin/Breast: Denies alopecia, change in hair, dry skin, breast mass, breast pain, breast skin changes or nipple discharge Neuro Neuro: Reports system reviewed and no additional complaints, except as documented Psych Psych: Reports system reviewed and no additional complaints, except as documented; Denies change in libido or difficulty concentrating Endo Endo: Denies cold intolerance, excessive sweating, heat intolerance or polydipsia [place]/Lymph Hematologic/Lymphatic: Denies easy bleeding, Denies easy bruising and Denies lym phadenopathy Exam Const General: cooperative, healthy appearing, comfortable, no acute distress and well developed Orientation: alert [facility] Head: normal to inspection and normocephalic Ears: hearing grossly normal bilaterally and external ears normal Nose: external nose normal and nares normal Face and sinus: normal facial exam Neck Neck: normal visual inspection and no lymphadenopathy Thyroid: thyroid normal Chest Chest palpation & inspection: normal inspection of the chest Resp Effort & Inspection: normal respiratory effort Auscultation: clear to auscultation bilaterally Cardio Rate: regular rate Rhythm: regular rhythm Heart Sounds: S1 normal and S2 normal GI Inspection: normal to inspection and non-distended Palpation: soft and no hepatosplenomegaly General: bladder normal to palpation External Female Exam: normal external appearance and normal appearance of the urethra Urethra: normal appearance of the urethra, normal palpation and no discharge Speculum Exam - Vagina: normal appearance of the vagina and normal vaginal discharge Speculum Exam - Cervix: normal appearance of the cervix and nontender Bimanual Exam- Vagina & Uterus: normal bimanual exam, uterine size normal, chang dder normal to palpation, uterine shape normal, No tender, uterine mobility normal, consistency normal, normal palpation and non-tender Bimanual Exam- Adnexa, other: normal adnexae, adnexae mobile, no masses and normal Pelvic Support: normal Musc Other: gross motor intact no deficits, full bilateral strength Skin General: no rashes or lesions noted Neuro General: patient alert, patient awake, moves all extremities and no focal motor deficits Motor: muscle tone normal throughout Extrem General: normal to inspection and no pedal edema Psych Appearance: grossly normal Mental Status: mental status grossly normal Affect: normal affect Speech and Movement: speech and movement normal Coding Level of Care Code No Charge UPDATE- I have seen the patient and performed any clinically relevant updates to the history and physical exam. Nellie Ambrosio MD Assessment & Plan Assessment/Plan (1) Adenomyosis: (2) Pelvic pain: PLAN: After discussing the patient's diagnosis and treatment plan options, patient wishes to proceed with surgical management. I have discussed with the patient the risks, benefits, and alternatives of the procedure which include but are not limited to risks of anesthesia, bleeding, infection, possible damage to bowel, bladder, or surrounding vasculature which could lead to additional surgery to evaluate any complications. Patient agrees to procedure and wishes to proceed. ACOG/uptodate references given for additional information regarding procedure.
[2022-03-03] VITALS (13 sets, daily range): BP systolic 100–121; BP diastolic 52–73; PULSE 64–77; RESP 13–20; TEMP 36.4–37.1; O2SAT 95–100; BMI 52.0
[2022-03-03 06:05] LABS: Internal QC Validated? YES +Cl - CLEAR BKGD; Pregnancy, Urine Negative Negative
[2022-03-03] MEDS: Lactated Ringers 1,000 ML 40 ML IV (06:34)
[2022-03-03] MEDS: Clindamycin 900 MG/50 ML BAG 75 MG IV (06:35)
[2022-03-03] MEDS: Scopolamine 1mg/72hr Patch 1 PATCH TD (06:36)
[2022-03-03] MEDS: Celecoxib 200 MG Capsule 400 MG PO (06:38)
[2022-03-03] MEDS: Phenazopyridine 95 MG Tablet 190 MG PO (06:39)
[2022-03-03] MEDS: Acetaminophen 500 MG Tablet 1000 MG PO ×2 (06:40→13:01)
[2022-03-03] MEDS: Gabapentin 600 MG Tablet PO (06:40)
[2022-03-03] MEDS: Insulin Lispro 100 UNIT/ML INSULN.PEN SC ×3 (06:41→14:39)
[2022-03-03] MEDS: dexAMETHasone 10 MG/ML Vial 8 MG IV (06:42)
[2022-03-03] MEDS: Enoxaparin 40 MG/0.4 ML Syringe SC (06:44)
--- NOTE | 2022-03-03 07:00 | SUR.PREOP ---
PATIENT COMPLAINTS OF HOT FEELING AND FELT FLUSHED. I LOWERED HER HEAD DOWN AND WENT AHEAD AND STOPPED THE MAGNESIUM WHICH ONLY HAD A SMALL AMOUNT LEFT. THIS NURSE LET DR. PURVIS KNOW ABOUT THIS. BP IS 107/67, AND PULSE 64, RESPS 18, TEMPERATURE 97.0. I OPENED UP THE PATIENT'S FLUIDS. STAT MAGNESIUM LABS DONE PER DR. PURVIS ORDER. PATIENT FEELS BETTER CURRENTLY AT 718 AM. SHE IS STILL LAYING FLAT CURRENTLY.
[2022-03-03 07:28] LABS: Magnesium 3.7 mg/dL (1.6-2.6)
--- NOTE | 2022-03-03 07:30 | HYST_PTH ---
PATIENT: DIMA BROOKS [place] [facility][id number] AGE/SX: 46/F ROOM: RE03/03/[address]: Dr. Nellie Ambrosio MD : [id number] BED: DIS: 03/03/2022 SPEC #: [id number] RECD: 03/03/22 13:01 STATUS: SAM REJosiah #: [id number] ANA: 03/03/22 07:[address]: Nellie Ambrosio DEPT: SURGICAL PATHOLOGY RECD BY: Kinga Blair ENTERED: 03/03/22 13:16 SP TYPE: HYSTERECT OTHR DR: Dr. Moustapha Bower, DO Tissues: Uterus, NOS Procedures: Surgery Specimen Level V HEADER OPERATION: ERAS, laparoscopic vaginal hysterectomy, bilateral salpingectomy PRE-OP DIAGNOSIS: Adenomyosis, pelvic pain TISSUE SUBMITTED: Uterus, cervix, bilateral fallopian tubes, epiploic appendages MICROSCOPIC DIAGNOSIS Uterus, hysterectomy: Cervix ? nabothian cysts and mild chronic inflammation. Endometrium ? benign stromal hyperplasia consistent with hormonal effect and weakly proliferative endometrium with focal cystic change. Myometrium ? adenomyosis and leiomyomas. Right fallopian tube ? hydrosalpinx. Left fallopian tube ? benign paratubal cyst. Fragments free in container ? nodular fat necrosis with dystrophic microcalcifications. AM:yamilet 03/04/2022 MICROSCOPIC DESCRIPTION Slides are reviewed. GROSS DESCRIPTION Received in fixative is one container labeled with the patient's name and designated uterus, cervix, bilateral fallopian tubes and epiploic appendages. The specimen consists of a hysterectomy specimen consisting of uterus with cervix, attached left fallopian tube and two detached pieces of ovoid tissue. The uterus with cervix weighs 156 gm and measures 11 x 8 x 5.5 cm. The serosal surface is focally ragged. The ectocervical mucosa is unremarkable. The external os is oval and patulous in contour. The endocervical canal measures 3.5 cm in length and the endocervical mucosa is tristan, glistening and unremarkable. The triangular endometrial cavity measures 5 cm in length and up to 2.5 cm in width. The endometrium is trsitan, glistening without any mass lesion and measures 0.1 cm in thickness. Sections of the uterine wall reveal multiple intramural nodular masses, largest mass measuring 0.6 cm in greatest dimension. The uninvolved uterine wall measures up to 3 cm in thickness. The left fallopian tube measures 6.5 cm in length and 0.5 cm in diameter. The fimbrial end is identified. Sections reveal unremarkable cut surfaces. A paratubal cyst is also noted measuring 3 cm in greatest dimension. Also present in the container are two detached pieces of yellowish ovoid nodule measuring 2 x 1.5 x 1.5 cm and 1.5 x 1.5 x 1 cm. Sections reveal these are filled with yellowish material. The attached non-fimbriated right fallopian tube measures 4 x 0.7 cm. Acute Care Nursing Assistant sections are submitted in 11 cassettes as follows: 1 - anterior cervix, 2 - posterior cervix, 3 & 4 - anterior uterine wall, 5 & 6 - posterior uterine wall. Sections of uterine wall also contain the nodular mass. 7 - more nodular masses, 8 - left fallopian tube and paratubal cyst, 9 & 10 - each containing one detached nodule, 11 - right fallopian tube. / SJ:rg 03/03/2022 TC: CPT: 65586
[2022-03-03 07:40] LABS: Bedside Glucose 192 mg/dL (74-106)
--- NOTE | 2022-03-03 07:42 | SUR.PREOP ---
PATIENT'S MAGNESIUM CAME BACK AND IT WAS 3.7. DR. PURVIS WAS MADE AWARE AND THEY ARE GOING TO PROCEED WITH THE SURGERY.
[2022-03-03] MEDS: Ondansetron 4 MG/2 ML Vial IV (07:50)
[2022-03-03] MEDS: Bupivacaine 0.25% 30 ML Vial (08:45)
[2022-03-03] MEDS: Vasopressin 20 UNITS/ML Vial (09:15)
[2022-03-03] MEDS: Lactated Ringers 1,000 ML 70 ML IV ×2 (09:30→13:00)
--- NOTE | 2022-03-03 10:24 | PCM.OPRPT ---
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 Patient was taken back to the operating room and placed in the dorsal lithotomy position. General anesthesia was induced and patient was prepped and draped in normal sterile fashion. Uterine manipulator was placed inside the uterus and Damon catheter placed in the bladder. The umbilicus was grasped with towel clamps and an intraumbilical incision was made after injecting with quarter percent Marcaine and a Veress needle entered into the abdomen confirmed to be intra-abdominal with a low opening pressure. Abdomen was insufflated with CO2 gas and the Veress needle removed and the 5 mm trocar was placed under direct visualization without complication. Right and left lower quadrants were transilluminated and injected with quarter percent Marcaine and 5 mm ports placed under direct visualization. Pelvis was well visualized see operative findings for additional information. Bilateral fallopian tubes were identified and transected with the LigaSure device across the mesosalpinx to the level of the utero-ovarian ligament which was also transected with the LigaSure device. The broad ligament was opened up by transecting the round ligament bilaterally and skeletonizing the uterine vessels bilaterally and creating a bladder flap using the LigaSure device. The uterine arteries were transected bilaterally with good visualization of the bladder and the ureters were seen to be inferior lateral to the operative area. Attention was then paid to the vaginal portion of the procedure and the cervix was grasped with Jared clamps and circumferentially injected with dilute vasopressin. A circumferential incision was made and the vaginal mucosa was mobilized off posteriorly and the cul-de-sac entered into sharply and a longneck speculum placed. The anterior cul-de-sac was then identified and entered into sharply. The uterosacral ligaments were clamped cut and suture ligated with 0 Monocryl bilaterally followed by the cardinal ligaments which were clamped cut and suture ligated bilaterally with 0 Monocryl. The uterus serially descended and was removed without difficulty. Pelvic sidewall pedicles were checked and noted to have excellent hemostasis. The vaginal mucosa was reapproximated incorporating the posterior peritoneum. This was reapproximated using 0 Vicryl [id number] sutures. Excellent hemostasis was noted. The pelvis and cul-de-sac were well visualized and no significant active bleeding noted but some raw areas were seen on the peritoneum and therefore FloSeal was applied. Pressure was taken down and the areas visualized and there is still some bleeding in the right apex which was cauterized with a LigaSure device and then FloSeal again reapplied, pressure taken down and the operative area was noted to have excellent hemostasis. All ports were removed under direct visualization without complication and the abdomen was desufflated of air. The instruments were removed from the abdomen and the vaginal sweep was negative. Port sites on the abdomen were closed with 4-0 Monocryl interrupted sutures and Steri's and windows were applied. She was awoken and taken recovery in stable condition. Grafts/Implants Used: none Complications none Admit VTE Documentation VTE Present on Admission: No VTE Mechan Device Prophylaxis: SCD's VTE Pharm Prophylaxis ordered?: Yes Procedures Urinary/Genital 52xxx-[id number]: [id number] LAVH+BS/O <250gr Uterus
[2022-03-03 10:56] LABS: Bedside Glucose 209 mg/dL (74-106)
[2022-03-03] MEDS: Ketorolac 15 MG/ML Vial IV (11:11)
--- NOTE | 2022-03-03 11:43 | SUR.PHASEI ---
PATIENT'S WILL BE UPDATED ABOUT PATIENT'S CONDITION. DOING WELL, WIDE AWAKE, AND WILL BRING BACK OVER TO ROOM WHEN WE MAKE SURE HER PAIN IS UNDER CONTROL.
[2022-03-03 14:20] LABS: Absolute Lymphocyte Count 0.69 X10^3/uL (0.83-4.51); Absolute Neutrophil Count 8.8 X10^3/uL (2.0-7.7); Basophil# 0.02 X10^3/uL; Basophil% 0.2 % (0-1); Hematocrit 37.6 % (37-47); Lymphocyte # 0.69 X10^3/ul (0.83-4.51); Lymphocyte % 7.1 % (19-41); Mean Corp Hgb Conc 31.9 g/dL (32-36); Mean Corpuscular Hgb 28.2 pg (27.0-32.0); Mean Corpuscular Volume 88.5 fL (81-99); Mean Platelet Vol. 10.4 fl (6.2-12.0); Monocyte# 0.16 X10^3/uL; Monocyte% 1.6 % (0-10); NRBC Flagged by Analyzer 0 % (0-5); Neutrophil % 90.8 % (47-70); Platelet Count 238 K/mm3 (150-450); RBC Distribution Width CV 12.7 % (11.6-14.6); RBC Distribution Width SD 40.8 fl (35.1-43.9); Red Blood Count 4.25 M/mm3 (4.2-5.4); White Blood Count 9.7 K/mm3 (4.4-11.0)
--- NOTE | 2022-03-03 14:33 | EX.PCM.DISCH ---
Discharge Instructions Diet Discharge Diet: No restrictions Activity May resume sexual activity in: 6 weeks Weight Bearing Status: Full weight bearing Dressing / Incision Call your doctor if your incision/area has: Continuous Slow Oozing, Sudden Increased Bleeding, Increased Pain/ Swelling, Increased Redness and Foul Smelling Discharge Call your doctor if you observe: Fever of 101 or Higher, Using more than 1 pad per hour, Shortness of breath, Chest pain and Uncontrolled pain Suture Line Care: Avoid Pulling/Pushing and Avoid Pinching/Bending Remove Dressing in: 1 week (if present) Cleanse incision/area with: Soap & Water and Keep Dressing Clean & Dry Follow Up Care Please Follow Up With: Nellie Ambrosio MD When: Call to make an appointment with your doctor for a postop visit in 2 and 6 weeks. Test Results: Test results from this visit will be discussed in further detail at your follow-up appointment, if applicable. Discharge Plan Admission Attending Provider: Nellie Ambrosio Primary Care Provider: Moustapha Bower Discharge Orders/Prescriptions Prescriptions: New oxycodone-acetaminophen [Percocet] 5-325 mg tablet 1 tab PO Q6H PRN (Reason: pain) 7 Days Qty: 20 RF: 0 Continued Soliqua 100/33 100 unit-33 mcg/mL insulin pen 50 unit SC QHS RF: 0 cholecalciferol (vitamin D3) 1,000 unit capsule 1,000 unit capsule 1,000 unit PO DAILY RF: 0 gabapentin 100 mg capsule 100 mg PO QHS RF: 0 fluticasone propion-salmeterol [Advair Diskus] 250-50 mcg/dose blister with device 1 inh INHALATION DAILY PRN PRN (Reason: ASTHMA) RF: 0 fenofibrate micronized 130 mg capsule 130 mg PO DAILY RF: 0 Liletta 20.1 mcg/24 hrs (6 yrs) 52 mg intrauterine device 1 device intrauterine ONCE RF: 0 Vyepti 100 mg/mL solution 100 mg .Route .[id number] RF: 0 atenolol 100 MG tablet 100 mg PO QHS RF: 0 citalopram 20 MG tablet 20 mg PO QHS RF: 0 amlodipine 10 MG tablet 10 mg PO QHS RF: 0 topiramate 100 MG tablet 200 mg PO DAILY RF: 0 chlordiazepoxide-clidinium 5-2.5 mg capsule 1 cap PO DAILY RF: 0 nabumetone [Relafen] 500 mg tablet 500 mg PO BID PRN PRN (Reason: Pain) RF: 0 Referrals / Follow Up: Moustapha Bower DO [Primary Care Provider] - Disposition Disposition (needs filled in before D/C Order can be placed): Home, Self Care
== END 2022-03-03 14:52 | disposition home or self-care (01) ==
LOC: SDC 05:23 → AC 05:23
PROVIDERS: Anesthesiology; PCP Family Medicine; Referring Provider Obstetrics & Gynecology; Visit Provider Obstetrics & Gynecology
PROC: 0UT9FZZ Resection of Uterus, Via Natural or Artificial Opening With Percutaneous Endoscopic Assistance (ICD-10-PCS; CPT 58552; principal; 2022-03-03 07:05)
DX: N70.11 Chronic salpingitis (principal); E11.9 Type 2 diabetes mellitus without complications; Z79.4 Long term (current) use of insulin; N83.8 Other noninflammatory disorders of ovary, fallopian tube and broad ligament; N80.0 Endometriosis of uterus; D25.9 Leiomyoma of uterus, unspecified; N88.8 Other specified noninflammatory disorders of cervix uteri; I10 Essential (primary) hypertension; G47.30 Sleep apnea, unspecified; F32.A Depression, unspecified; F41.9 Anxiety disorder, unspecified; Z86.16 Personal history of COVID-19; Z79.899 Other long term (current) drug therapy
CPT/HCPCS: 58552; 00840; 36415; 80053; 81025; 82962; 83036; 83735; 85025; 86850; 86900; 86901; 88307; 93005; J7120; J2405

== ENCOUNTER → 2022-05-18 | Outpatient (CLI) | payer BC, SELFPAY ==
[2022-05-18 08:32] LABS: Absolute Lymphocyte Count 1.85 X10^3/uL (0.83-4.51); Absolute Neutrophil Count 3.9 X10^3/uL (2.0-7.7); Basophil# 0.02 X10^3/uL; Basophil% 0.3 % (0-1); Eosinophil# 0.21 X10^3/uL; Eosinophils% 3.3 % (0-5); Hematocrit 39.2 % (37-47); Hemoglobin 12.4 g/dL (12.0-15.0); Lymphocyte # 1.85 X10^3/ul (0.83-4.51); Mean Corp Hgb Conc 31.6 g/dL (32-36); Mean Corpuscular Hgb 27.9 pg (27.0-32.0); Mean Corpuscular Volume 88.1 fL (81-99); Mean Platelet Vol. 9.6 fl (6.2-12.0); Monocyte% 6.3 % (0-10); NRBC Flagged by Analyzer 0 % (0-5); Neutrophil # 3.88 X10^3/uL (2.7-7.7); Neutrophil % 60.8 % (47-70); Platelet Count 319 K/mm3 (150-450); RBC Distribution Width CV 12.9 % (11.6-14.6); RBC Distribution Width SD 41.3 fl (35.1-43.9); Red Blood Count 4.45 M/mm3 (4.2-5.4); White Blood Count 6.4 K/mm3 (4.4-11.0)
[2022-05-18 09:09] LABS: ALB/GLOB Ratio 1.2 RATIO (0.9-2.4); AST(SGOT) 27 U/L (15-37); Alanine Aminotransfer ALT/SGPT 35 U/L (13-56); Albumin, Serum 3.7 g/dL (3.2-5.0); Alkaline Phosphatase 49 U/L (45-117); Anion Gap 7 (5-15); BUN 22 mg/dL (7-18); BUN/Creat Ratio 21.8 RATIO (10-20); Calcium,Total 9.3 mg/dL (8.5-10.1); Chloride 105 mmol/L (98-107); Cholesterol 244 mg/dL (200); Creatinine, Serum 1.01 mg/dL (0.55-1.02); EST Glomerular Filtration Rate 62 mL/min (>60); Est Glom Filt Rate - Afr Amer 75 mL/min (>60); Globulin 3.1 g/dL (2.2-4.2); Glucose 153 mg/dL (74-106); Hepatitis B Surface Antibody Non-Reactive; High Density Lipoprotein 42 mg/dL; Potassium 4.2 mmol/L (3.5-5.1); Protein, Total 6.8 g/dL (6.4-8.2); Sodium Level 137 mmol/L (136-145); Triglycerides 175 mg/dL; Very Low Density Lipoprotein 35 mg/dL (5-40)
[2022-05-18 09:35] LABS: Hemoglobin A1c 6.8 % (3.8-5.6)
[2022-05-20 17:07] LABS: HEPATITIS B SURFACE AG Negative (Negative); Hep C Antibodies 0.1 s/co ratio (0.0-0.9); Hepatitis A IgM Antibody Negative (Negative); Hepatitis B Core AB IgM Negative (Negative); QNTFERON TB Mitogen Value > 10.00 IU/mL (.); QNTFERON TB Nil Value 0 IU/mL (.); QNTFERON TB1+ Ag Value 0 IU/mL (.); QNTFERON TB2+ Ag Value 0 IU/mL (.)
[2022-05-21 13:40] LABS: Hepatitis A AB, Total Positive (Negative); QNTIFERON TB Positive Criteria Negative (Negative)
== END | disposition home or self-care (01) ==
LOC: LAB 07:45
PROVIDERS: PCP Family Medicine; Referring Provider Family Medicine; Visit Provider Family Medicine
DX: L40.0 Psoriasis vulgaris (principal); E11.9 Type 2 diabetes mellitus without complications; L40.8 Other psoriasis; Z79.899 Other long term (current) drug therapy
CPT/HCPCS: 36415; 80053; 80061; 80074; 83036; 85025; 86480; 86706; 86708

== ENCOUNTER 2022-07-01 10:32 | Emergency (ER) | payer BC, SELFPAY ==
[2022-07-01 10:33] VITALS: BP 132/79; PULSE 67; RESP 17; TEMP 36.2; O2SAT 100; BMI 54.1
--- NOTE | 2022-07-01 10:47 | EKG12_ITS ---
Test Reason : cp Blood Pressure : / mmHG Vent. Rate : 064 BPM Atrial Rate : 064 BPM P-R Int : 190 ms QRS Dur : 092 ms QT Int : 412 ms P-R-T Axes : 035 019 -15 degrees QTc Int : 425 ms Normal sinus rhythm T wave abnormality, consider anterior ischemia Abnormal ECG Confirmed by KANIKA TONEY, MARCK ([id number]), manager editorial ARI MACIAS ([id number]) on 07/02/2022 12:55:13 PM Referred By: Confirmed By:MARCK BOUDREAUX MD
--- NOTE | 2022-07-01 10:49 | EDS_ITS ---
HPI History of Present Illness Chief Complaint: Chest Pain Narrative Narrative: Patient presents with chest pain that started around 6:00 last night, it is aching, he tells me it is intermittent. She has no pleuritic component. She has no back pain or tearing sensation. No lower extremity edema or calf pain. No DVT or PE risk factors. This morning she also woke up had a slight headache which has gotten somewhat worse. She has no vision changes no weakness no paresthesias no neurological symptoms. No fevers or chills, no neck pain, no abdominal pain, she has some nausea with this. [facility] Medical History Adenomyosis Anxiety Anxiety and depression Asthma Back pain BMI greater than 40 Cardiology follow-up encounter CPAP (continuous positive airway pressure) dependence Diabetes Dietary restriction Easy bruisability Essential hypertension Fatigue Fibroid, uterine Fibroids H/O MTHFR mutation High cholesterol History of echocardiogram History of IBS History of steroid therapy History of stress test Hyperlipemia Hypertension IBS (irritable bowel syndrome) Injury of head and neck Insulin dependent diabetes mellitus Kidney stones Menorrhagia Metrorrhagia Migraine (~06/03/17) Morbid obesity Perimenopausal Shortness of breath on exertion Sleep apnea Statin intolerance Wears glasses Home Medications amlodipine 10 mg tablet 10 mg PO QHS 04/30/18 [History Last Taken Unknown] atenolol 100 mg tablet 100 mg PO QHS 04/30/18 [History Last Taken Unknown] citalopram 20 mg tablet 20 mg PO QHS 04/30/18 [History Last Taken Unknown] cholecalciferol (vitamin D3) 25 mcg (1,000 unit) capsule 1,000 unit PO DAILY 03/13/19 [History Last Taken Unknown] fluticasone 250 mcg-salmeterol 50 mcg/dose blistr powdr for inhalation (Advair Diskus) 1 inh inhalation DAILY PRN PRN ASTHMA 03/18/20 [History Last Taken Unknown] gabapentin 100 mg capsule 100 mg PO QHS 03/18/20 [History Last Taken Unknown] chlordiazepoxide-clidinium 5 mg-2.5 mg capsule 1 cap PO DAILY 11/14/21 [History Last Taken Unknown] fenofibrate micronized 130 mg capsule 130 mg PO DAILY 01/06/22 [History Last Taken Unknown] insulin glargine 100 unit-lixisenatide 33 mcg/mL subcutaneous pen (Soliqua 100/33) 50 unit subcut QHS 01/06/22 [History Last Taken Unknown] eptinezumab-jjmr 100 mg/mL intravenous solution (Vyepti) 100 mg .Route .[id number] 01/08/22 [History Last Taken Unknown] nabumetone 500 mg tablet (Relafen) 500 mg PO BID PRN PRN Pain 01/30/22 [History Last Taken Unknown] adalimumab 80 mg/0.8 mL (x 1) and 40 mg/0.4 mL (x 2) subcutan pen kit (Humira(CF) Pen Ps-Uv-Adol HS) 40 ea subcut QWEEK 07/01/22 [History Last Taken Unknown] verapamil 240 mg DAILY 07/01/22 [History Last Taken Unknown] Allergy/AdvReac Type Severity Reaction Status Date / Time lisinopril Allergy Mild Unknown Verified 07/01/22 10:44 aspartame Allergy Shortness Verified 07/01/22 10:44 of breath shellfish derived Allergy Angioedema Verified 07/01/22 10:44 Sulfa (Sulfonamide Allergy Rash Verified 07/01/22 10:44 Antibiotics) metformin AdvReac Intermediate Nausea Verified 07/01/22 10:44 Jauqrad-CDD-SbL Reductase AdvReac Intermediate Diarrhea Verified 07/01/22 10:44 Inhibitor [Zdserwj-Wlw-Ymj Reductase Inhibitor] Penicillins AdvReac Diarrhea Verified 07/01/22 10:44 Family History Father Heart disease Grandmother Breast cancer Surgical History H/O lithotripsy History of LAVH History of right oophorectomy History of tonsillectomy Hx of cystoscopy Hx of cystoscopy Hx of LASIK Hx of wisdom tooth extraction Social History number of children: 2 current occupational status: employed 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 Smoking Status: Never smoker alcohol intake: current details: social substance use type: does not use caffeine: Yes what type of physical activity do you participate in: none seatbelt use: always additional social history: [employer] 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 Some nausea but no vomiting, no diarrhea. Genitourinary: No dysuria Musculoskeletal: Denies myalgias no difficulty with ambulation Skin: No rash Neurological: No memory loss, confusion or any focal weakness. Gradual onset of headache as in HPI Psych: No recent behavioral changes Hematologic: No easy bleeding or easy bruising EXAM Physical Exam Narrative Exam Narrative: Physical exam General: Patient appears stated BMI of 54, she does not appear in any significant distress. Head: Normocephalic, Atraumatic Eyes: Conjunctiva not pale ENT: Moist mucous membranes Neck: Supple, Nontender, No lymphadenopathy Cardiovascular: Regular rate, Regular rhythm Respiratory: No distress, CTA bilaterally Abdomen: Soft, Nontender, Nondistended Back: Nontender, Normal Inspection. Negative for: CVA tenderness Extremities: Nontender, No edema, no calf pain. Skin: Normal color, No rash Neurological: Alert, Normal Strength, Normal Sensation Psychological: Normal affect Const Vital Signs: 07/01/22 10:33 07/01/22 10:39 07/01/22 11:58 Temperature 97.1 F L Temperature Source Temporal Pulse Rate 67 68 Respiratory Rate 17 18 Respiratory Effort Normal Non-Labored Blood Pressure 132/79 H 133/83 H Blood Pressure Mean 96 99 Pulse Ox 100 97 Oxygen Delivery Method Room Air Room Air 07/01/22 13:09 Temperature Temperature Source Pulse Rate 65 Respiratory Rate 18 Respiratory Effort Blood Pressure Blood Pressure Mean Pulse Ox 98 Oxygen Delivery Method Room Air Heart Score History: Slightly/Non-Suspicious ECG: Normal (Unchanged from prior EKG) Age: >45 - <65 years Risk Factors: >/= 3 Risk Factors or History of CAD Troponin: </= Normal Limit Score: 3 MDM MDM MDM Narrative Medical decision making narrative: Patient has a normal work-up. She appears well, there is no thromboembolic risk factors, PERC is negative therefore I will not do a work-up. Both troponins are negative, she appears well she was reassured and I will discharge in stable condition to follow-up with her PCP. Lab Data Labs: Laboratory Results - last 24 hr 07/01/22 07/01/22 07/01/22 10:55 10:55 12:40 WBC 5.5 RBC 4.31 Hgb 12.5 Hct 37.8 MCV 87.7 MCH 29.0 MCHC 33.1 RDW Std Deviation 41.4 RDW Coeff of Margarita 12.9 Plt Count 268 MPV 8.8 Immature Gran % (Auto) 0.400 Neut % (Auto) 49.0 Lymph % (Auto) 38.7 [place] % (Auto) 7.7 Eos % (Auto) 3.5 Baso % (Auto) 0.7 Absolute Neuts (auto) 2.7 Absolute Lymphs (auto) 2.12 Nucleated RBC % 0 Sodium 138 Potassium 4.2 Chloride 106 Carbon Dioxide 27.0 Anion Gap 5 BUN 19 H Creatinine 0.92 Estim Creat Clear Calc 59.15 Est GFR (MDRD) Af Amer 83 Est GFR (MDRD) Non-Af 69 BUN/Creatinine Ratio 20.6 H Glucose 208 H Calcium 9.3 Total Bilirubin 0.30 AST 19 ALT 35 Alkaline Phosphatase 47 Troponin I High Sens 8 8 Total Protein 6.8 Albumin 3.8 Globulin 3.0 Albumin/Globulin Ratio 1.3 Radiography Diagnostic Testing: Clinical Impression(s) from Imaging Studies Chest X-Ray 07/01/22 11:05 IMPRESSION: Perironchial cuffing and perihilar prominence would recommend clinical correlation for acute bronchitis, airway disease or viral pneumonia. Electronically Signed: Brant Fair MD at 11:23 EDT , Chest x-ray read by me is normal. Radiologist notes possibility of bronchitis however I do not see this. EKG Initial EKG: Comments: Sinus rhythm with a rate of 64. Normal UT and QTc intervals. Anterior T wave inversion in precordial leads, this is however unchanged from EKG on February 25, 2022. Otherwise normal EKG Interpreted by emergency Dr. Discharge Plan Triage Chief Complaint: Chest Pain ED Provider: Florentin Batista Dx/Rx/DC Orders Prescriptions: No Action Soliqua 100/33 100 unit-33 mcg/mL insulin pen 50 unit SC QHS cholecalciferol (vitamin D3) 1,000 unit capsule 1,000 unit capsule 1,000 unit PO DAILY gabapentin 100 mg capsule 100 mg PO QHS fluticasone propion-salmeterol [Advair Diskus] 250-50 mcg/dose blister with device 1 inh INHALATION DAILY PRN PRN (Reason: ASTHMA) fenofibrate micronized 130 mg capsule 130 mg PO DAILY Vyepti 100 mg/mL solution 100 mg .Route .[id number] Rx Instructions: q 3 months atenolol 100 MG tablet 100 mg PO QHS Label Comments: citalopram 20 MG tablet 20 mg PO QHS Label Comments: amlodipine 10 MG tablet 10 mg PO QHS Label Comments: chlordiazepoxide-clidinium 5-2.5 mg capsule 1 cap PO DAILY nabumetone [Relafen] 500 mg tablet 500 mg PO BID PRN PRN (Reason: Pain) verapamil 240 mg DAILY Humira(CF) Pen Kxfc-Cv-Qxld HS 80 mg/0.8 mL-40 mg/0.4 mL pen injector kit 40 ea SUBCUT QWEEK Primary Care Provider: Moustapha Bower Referrals: Moustapha Bower DO [Primary Care Provider] -
[2022-07-01 10:59] LABS: Absolute Lymphocyte Count 2.12 X10^3/uL (0.83-4.51); Absolute Neutrophil Count 2.7 X10^3/uL (2.0-7.7); Basophil# 0.04 X10^3/uL; Basophil% 0.7 % (0-1); Eosinophil# 0.19 X10^3/uL; Eosinophils% 3.5 % (0-5); Hematocrit 37.8 % (37-47); Hemoglobin 12.5 g/dL (12.0-15.0); Lymphocyte # 2.12 X10^3/ul (0.83-4.51); Lymphocyte % 38.7 % (19-41); Mean Corp Hgb Conc 33.1 g/dL (32-36); Mean Corpuscular Volume 87.7 fL (81-99); Mean Platelet Vol. 8.8 fl (6.2-12.0); Monocyte# 0.42 X10^3/uL; Monocyte% 7.7 % (0-10); NRBC Flagged by Analyzer 0 % (0-5); Neutrophil # 2.69 X10^3/uL (2.7-7.7); Platelet Count 268 K/mm3 (150-450); RBC Distribution Width CV 12.9 % (11.6-14.6); RBC Distribution Width SD 41.4 fl (35.1-43.9); Red Blood Count 4.31 M/mm3 (4.2-5.4); White Blood Count 5.5 K/mm3 (4.4-11.0)
[2022-07-01] MEDS: Ketorolac 15 MG/ML Vial IV (10:59)
--- NOTE | 2022-07-01 11:05 | RAD_ITS ---
INDICATION: cp EXAMINATION/TECHNIQUE: X-RAY - XR Chest 1 View COMPARISON: None. FINDINGS: Poor inspiratory effort is seen that limits evaluation. LINES/DEVICES: None. LUNGS: Peribronchial cuffing bilateral hilar prominence is seen, mild prominence of the perihilar bronchovascular and interstitial lung markings is visualized with subtle airspace opacification seen, no significant opacification visualized in the peripheral lung gonzalez. The costophrenic angles are clear bilaterally with no evidence of pleural effusion. No evidence of pneumothorax or parenchymal lung mass. MEDIASTINUM AND CARDIOVASCULAR STRUCTURES: Cardiac silhouette within normal limits given the poor inspiratory effort. BONES AND SOFT TISSUES: Unremarkable. RAD/Chest 1 View (Portable) IMPRESSION: Perironchial cuffing and perihilar prominence would recommend clinical correlation for acute bronchitis, airway disease or viral pneumonia. Electronically Signed: Brant Fair MD at 11:23 EDT ,
[2022-07-01 11:17] LABS: ALB/GLOB Ratio 1.3 RATIO (0.9-2.4); AST(SGOT) 19 U/L (15-37); Alanine Aminotransfer ALT/SGPT 35 U/L (13-56); Albumin, Serum 3.8 g/dL (3.2-5.0); Alkaline Phosphatase 47 U/L (45-117); Anion Gap 5 (5-15); BUN 19 mg/dL (7-18); BUN/Creat Ratio 20.6 RATIO (10-20); Calcium,Total 9.3 mg/dL (8.5-10.1); Chloride 106 mmol/L (98-107); Creatinine, Serum 0.92 mg/dL (0.55-1.02); EST Glomerular Filtration Rate 69 mL/min (>60); Est Glom Filt Rate - Afr Amer 83 mL/min (>60); Estimated Creatinine Clearance 59.15 ml/min; Glucose 208 mg/dL (74-106); Potassium 4.2 mmol/L (3.5-5.1); Protein, Total 6.8 g/dL (6.4-8.2); Sodium Level 138 mmol/L (136-145); Troponin-I HS 8 pg/mL (3.0-54.0)
[2022-07-01 11:58] VITALS: BP 133/83; PULSE 68; RESP 18; O2SAT 97
[2022-07-01] MEDS: Ondansetron 4 MG/2 ML Vial IV (12:46)
[2022-07-01 13:06] LABS: Troponin-I HS 8 pg/mL (3.0-54.0)
[2022-07-01 13:09] VITALS: PULSE 65; RESP 18; O2SAT 98
[2022-07-01 13:30] VITALS: BP 106/54; PULSE 67; RESP 10; O2SAT 97
== END 2022-07-01 13:39 | disposition home or self-care (01) ==
PROVIDERS: Emergency Provider Emergency Medicine; PCP Family Medicine; Visit Provider Emergency Medicine
DX: R07.9 Chest pain, unspecified (principal); Z79.4 Long term (current) use of insulin; I10 Essential (primary) hypertension; G47.30 Sleep apnea, unspecified; F41.9 Anxiety disorder, unspecified; F32.A Depression, unspecified; Z79.899 Other long term (current) drug therapy
CPT/HCPCS: 71045; 80053; 84484; 85025; 87811; 93005; 96361; 96374; 96375; 99284; J7040; A4216; J2405

== ENCOUNTER 2022-10-01 09:52 | Emergency (ER) | payer BC, SELFPAY ==
[2022-10-01 09:54] VITALS: BP 181/81; PULSE 71; RESP 18; TEMP 36.3; O2SAT 100; BMI 55.7
--- NOTE | 2022-10-01 10:26 | EKG12_ITS ---
Test Reason : CHEST PRESSURE Blood Pressure : / mmHG Vent. Rate : 065 BPM Atrial Rate : 065 BPM P-R Int : 168 ms QRS Dur : 088 ms QT Int : 414 ms P-R-T Axes : 002 017 -14 degrees QTc Int : 430 ms Normal sinus rhythm ST & T wave abnormality, consider anterior ischemia Abnormal ECG Confirmed by MARLYS TONEY, SAUL ([id number]), electronic news gathering editor ARI MACIAS ([id number]) on 10/05/2022 1:06:47 PM Referred By: Confirmed By:SAUL FRANKEL MD
--- NOTE | 2022-10-01 10:26 | RAD_ITS ---
STUDY: X-RAY CHEST REASON FOR EXAM: Female, 47 years old. Chest pain, dyspnea, dyspnea on exertion TECHNIQUE: PA and lateral views of the chest. COMPARISON: Comparison is made with prior study 07/01/2022. FINDINGS: EKG electrodes are seen. The lungs are clear and expanded. There is no demonstrated pleural abnormality. Normal size heart. Normal mediastinum and lesly. Normal visualized pulmonary arteries. Normal visualized aortic arch and descending thoracic aorta. There are diffuse degenerative changes of the visualized thoracic spine. Normal visualized ribs, clavicles, and shoulders. There is no demonstrated abnormality of the visualized soft tissue structures of the upper abdomen. RAD/Chest PA and Lateral IMPRESSION: No acute abnormality is seen. Electronically Signed: Theron Blair MD at 12:08 EDT ,
[2022-10-01 10:45] LABS: Absolute Lymphocyte Count 1.85 X10^3/uL (0.83-4.51); Absolute Neutrophil Count 3.2 X10^3/uL (2.0-7.7); Basophil# 0.03 X10^3/uL; Basophil% 0.5 % (0-1); Eosinophil# 0.17 X10^3/uL; Hematocrit 38.8 % (37-47); Hemoglobin 12.9 g/dL (12.0-15.0); Lymphocyte # 1.85 X10^3/ul (0.83-4.51); Lymphocyte % 32.7 % (19-41); Mean Corp Hgb Conc 33.2 g/dL (32-36); Mean Corpuscular Hgb 29.2 pg (27.0-32.0); Mean Corpuscular Volume 87.8 fL (81-99); Mean Platelet Vol. 9.2 fl (6.2-12.0); Monocyte# 0.41 X10^3/uL; Monocyte% 7.3 % (0-10); NRBC Flagged by Analyzer 0 % (0-5); Neutrophil # 3.17 X10^3/uL (2.7-7.7); Neutrophil % 56.1 % (47-70); Platelet Count 241 K/mm3 (150-450); RBC Distribution Width CV 12.6 % (11.6-14.6); RBC Distribution Width SD 40.7 fl (35.1-43.9); Red Blood Count 4.42 M/mm3 (4.2-5.4); White Blood Count 5.7 K/mm3 (4.4-11.0)
--- NOTE | 2022-10-01 10:48 | EX.ED.DYSGE1 ---
HPI History of Present Illness Chief Complaint: Shortness of Breath Detail of Chief Complaint: Chest heaviness and respiratory symptoms as well as many other Informant: patient Onset/Context/Timing Onset: Today (Midsternal chest apnea started 0600) and Days ([place] infectious symptoms) Context: Gradual Onset (Regarding the respiratory symptoms) and Sudden Onset (The chest pain was noted at 0600.) Timing: Continuous Quality: Pressure also complains of headache and will document in the HPI narrative Location: Midsternal, respiratory and headache Current Severity: Moderate Maximum Severity: Moderate Worsened by: Nothing specific Relieved by: Nothing Associated Symptoms Associated Symptoms: Mild dyspnea on exertion Narrative Narrative: Patient is a 47-year-old morbidly obese white female who was sent from urgent care because of chest pressure. She has had upper respiratory symptoms for the past several days. She does have history of asthma, hypertension and diabetes. No one had an TN at an early age. She does not have cardiac disease to her knowledge. She denies fever. She does report bifrontal headache. She does report mild nasal congestion sore throat essentially nonproductive. She denies pleuritic pain. Denies history of PE or DVT. She is not on hormonal therapy. She denies leg pain, swelling discoloration. She has reported intermittent nausea over the past several days. She had no vomiting or diarrhea. She denies double vision blurred vision loss of vision recently. She denies ringing in ears or decreased hearing. Denies ear pain. Denies drainage from ears. She denies radiation of the pain. She denied diaphoresis with onset. She was not doing anything specific when the pain started. She awoke from sleep. The pain did not wake her from sleep. Patient gives history of migraine headaches. She believes this is a migraine headache. Prior similar symptoms: Yes (Yes with regards to respiratory symptoms and headache.) Recent Illness/Hospitalization: No [facility] Medical History Adenomyosis Anxiety Anxiety and depression Asthma Back pain Back pain BMI greater than 40 Cardiology follow-up encounter Chest pressure CPAP (continuous positive airway pressure) dependence Diabetes Dietary restriction Easy bruisability Essential hypertension Fatigue Fibroid, uterine Fibroids H/O MTHFR mutation High cholesterol History of echocardiogram History of IBS History of steroid therapy History of stress test Hyperlipemia Hypertension IBS (irritable bowel syndrome) Injury of head and neck Insulin dependent diabetes mellitus Kidney stones Menorrhagia Metrorrhagia Migraine (~06/03/17) Morbid obesity Perimenopausal Shortness of breath Shortness of breath on exertion Sleep apnea Statin intolerance Wears glasses Home Medications amlodipine 10 mg tablet 10 mg PO QHS 04/30/18 [History Last Taken Unknown] atenolol 100 mg tablet 100 mg PO QHS 04/30/18 [History Last Taken Unknown] citalopram 20 mg tablet 20 mg PO QHS 04/30/18 [History Last Taken Unknown] cholecalciferol (vitamin D3) 25 mcg (1,000 unit) capsule 1,000 unit PO DAILY 03/13/19 [History Last Taken Unknown] fluticasone 250 mcg-salmeterol 50 mcg/dose blistr powdr for inhalation (Advair Diskus) 1 inh inhalation DAILY PRN PRN ASTHMA 03/18/20 [History Last Taken Unknown] gabapentin 100 mg capsule 100 mg PO QHS 03/18/20 [History Last Taken Unknown] chlordiazepoxide-clidinium 5 mg-2.5 mg capsule 1 cap PO DAILY 11/14/21 [History Last Taken Unknown] fenofibrate micronized 130 mg capsule 130 mg PO DAILY 01/06/22 [History Last Taken Unknown] insulin glargine 100 unit-lixisenatide 33 mcg/mL subcutaneous pen (Soliqua 100/33) 50 unit subcut QHS 01/06/22 [History Last Taken Unknown] eptinezumab-jjmr 100 mg/mL intravenous solution (Vyepti) 100 mg .Route .[id number] 01/08/22 [History Last Taken Unknown] nabumetone 500 mg tablet (Relafen) 500 mg PO BID PRN PRN Pain 01/30/22 [History Last Taken Unknown] adalimumab 80 mg/0.8 mL (x 1) and 40 mg/0.4 mL (x 2) subcutan pen kit (Humira(CF) Pen Ps-Uv-Adol HS) 40 ea subcut QWEEK 07/01/22 [History Last Taken Unknown] verapamil 240 mg DAILY 07/01/22 [History Last Taken Unknown] Allergy/AdvReac Type Severity Reaction Status Date / Time lisinopril Allergy Mild Unknown Verified 10/01/22 09:53 aspartame Allergy Shortness Verified 10/01/22 09:53 of breath shellfish derived Allergy Angioedema Verified 10/01/22 09:53 Sulfa (Sulfonamide Allergy Rash Verified 10/01/22 09:53 Antibiotics) metformin AdvReac Intermediate Nausea Verified 10/01/22 09:53 Ansymkt-BFW-IlG Reductase AdvReac Intermediate Diarrhea Verified 10/01/22 09:53 Inhibitor [Efkbfrq-Gqk-Eet Reductase Inhibitor] Penicillins AdvReac Diarrhea Verified 10/01/22 09:53 Family History Father Heart disease Grandmother Breast cancer Surgical History H/O lithotripsy H/O: hysterectomy History of LAVH History of right oophorectomy History of tonsillectomy Hx of cystoscopy Hx of cystoscopy Hx of LASIK Hx of wisdom tooth extraction Social History number of children: 2 current occupational status: employed 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 Smoking Status: Never smoker alcohol intake: current details: social substance use type: does not use caffeine: Yes what type of physical activity do you participate in: none seatbelt use: always additional social history: Carly Washburn 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 [facility] ED Constitutional Constitutional ED: Denies chills, fever(s), subjective, sweats or weight loss Eyes Eyes: Denies blurry vision, change in vision or diplopia ENT ENT ED: Reports rhinorrhea and sore throat; Denies ear pain Cardiovascular Cardiovascular: Reports chest pain; Denies orthopnea, palpitations, paroxysmal nocturnal dyspnea or racing heartbeat Respiratory/Chest Respiratory/Chest: Reports cough, dyspnea and dyspnea on exertion; Denies orthopnea, paroxysmal nocturnal dyspnea or sputum Gastrointestinal Gastrointestinal: Reports nausea; Denies abdominal pain, constipation, diarrhea, melena or vomiting Genitourinary Genitourinary ED: Denies dysuria, hematuria or urinary frequency Musculoskeletal Musculoskeletal: Reports neck pain and other Details: Patient attributes the neck pain to her migraine headache. ; Denies arthralgias, back pain or myalgias Integumentary Denies abscess or rash Neurologic Neurologic: Reports headache(s); Denies paresthesias or weakness Psychiatric Psychiatric: Denies anxiety Endocrine Endocrinology: Denies cold intolerance, heat intolerance, polydipsia or polyphagia Hematologic/Lymphatic Hematologic/Lymphatic: Reports systems reviewed and no addt'l complaints, except as documented and none EXAM Physical Exam Const Vital Signs: 10/01/22 09:54 10/01/22 10:08 10/01/22 11:53 Temperature 97.4 F L Temperature Source Temporal Pulse Rate 71 64 Respiratory Rate 18 14 Respiratory Effort Normal Non-Labored Blood Pressure 181/81 H 122/78 H Blood Pressure Mean 114 92 Pulse Ox 100 100 Oxygen Delivery Method Room Air Room Air Positive well nourished, well developed and obese; Negative for cachectic, contractures or unkempt General Appearance ED: well developed and NAD; Negative for unkempt, cachectic, contractures, cyanotic, diaphoretic or pallor Nutritional Appearance: obese; Negative for cachectic HEENT Reports moist mucous membranes HEENT Narrative: Head is atraumatic no cephalic. Ears normal. TMs normal. Nares patent. Uvula midline. No erythema or exudate the posterior pharynx. Eyes PERRL and EOMs intact bilaterally Eyes Narrative: Patient did not have photophobia to funduscopic exam. Cup-to-disc ratio normal. There is no papilledema. General Eye ED: Negative for pale conjunctiva or scleral icterus Neck no lymphadenopathy, supple and no JVD Neck Narrative: There is no meningeal findings. Chest Wall inspection of chest normal and palpation of chest normal Resp normal respiratory effort and clear to auscultation bilaterally Cardio regular rate, regular rhythm, S1 normal heart sound, S2 normal heart sound and no murmurs GI normal to inspection, nondistended, normoactive bowel sounds, non-tender, non-distended and no masses; Negative for hepatosplenomegaly Palpation: soft Back/Spine no CVA tenderness Extremity normal to inspection Extremity Narrative: There is no asymmetry, swelling, discoloration, leg vein distention, palpable cords or tenderness along the distribution of the deep venous system. Neuro oriented x3, CN's II-XII intact bilaterally and no sensory deficits noted Sensorium / Orientation: alert Motor Exam: strength 5/5 throughout Psych Appearance: Negative for unkempt Mood & Affect: depressed Skin no rashes or lesions noted, no wounds and skin turgor normal General Skin Exam: Negative for jaundice or pallor MDM MDM MDM Narrative Medical decision making narrative: Patient presents with predominantly respiratory symptoms. Up concerned she is driving chest pressure and need to rule out cardiac etiology. She has no history of GERD. She denies food intolerance. Suspect her other symptoms are due to upper respiratory infection and possible migraine. There is no concern at this time for meningitis. Work-up was initiated. Lab Data Attestation: I reviewed the patient's lab results. Lab results narrative: Blood sugar is slightly elevated. Heart is less than 7 with 4-1/2 to 5 hours the pain. This rules out cardiac etiology. Suspect this is due to respiratory infection. Labs: Laboratory Results - last 24 hr 10/01/22 10/01/22 10:38 10:38 WBC 5.7 RBC 4.42 Hgb 12.9 Hct 38.8 MCV 87.8 MCH 29.2 MCHC 33.2 RDW Std Deviation 40.7 RDW Coeff of Margarita 12.6 Plt Count 241 MPV 9.2 Immature Gran % (Auto) 0.400 Neut % (Auto) 56.1 Lymph % (Auto) 32.7 [place] % (Auto) 7.3 Eos % (Auto) 3.0 Baso % (Auto) 0.5 Absolute Neuts (auto) 3.2 Absolute Lymphs (auto) 1.85 Nucleated RBC % 0 Sodium 139 Potassium 4.1 Chloride 105 Carbon Dioxide 30.0 Anion Gap 4 L BUN 21 H Creatinine 0.88 Estim Creat Clear Calc 61.16 Est GFR (MDRD) Af Amer 88 Est GFR (MDRD) Non-Af 73 BUN/Creatinine Ratio 23.9 H Glucose 144 H Calcium 9.8 Troponin I High Sens 5 Radiography Chest X-Ray - ED: 2 View and Read by ED Physician (Normal cardiac silhouette and size. Lung parenchyma is unremarkable. Limited inspiratory volume.. Hilar regions normal. [place] structures normal. This was independently reviewed and interpreted by me at 1133.) Diagnostic Testing: Clinical Impression(s) from Imaging Studies Chest X-Ray 10/01/22 10:26 IMPRESSION: No acute abnormality is seen. Electronically Signed: Theron Blair MD at 12:08 EDT , EKG Initial EKG: Attestation: I personally reviewed and interpreted this EKG as follows: Interpretation: Sinus Rhythm (Ventricular rate 65. NC interval 268 ms. QS duration 88 ms. QT duration 114 ms. [place] is normal. There is artifact which in my opinion the computer is reading as ST T wave abnormality. The EKG is unchanged from EKG obtained July 01, 2022.) Discharge Plan Triage Chief Complaint: Shortness of Breath Other Complaint: Chest Pain ED Provider: Yosef Hoyos Dx/Rx/DC Orders Clinical Impression: Chest pressure, Hyperglycemia due to type 2 diabetes mellitus, Upper respiratory infection with cough and congestion Instructions: ED Chest Pain, Noncardiac, ED URI, Viral, No Abx (Adult) Prescriptions: No Action Soliqua 100/33 100 unit-33 mcg/mL insulin pen 50 unit SC QHS cholecalciferol (vitamin D3) 1,000 unit capsule 1,000 unit capsule 1,000 unit PO DAILY gabapentin 100 mg capsule 100 mg PO QHS fluticasone propion-salmeterol [Advair Diskus] 250-50 mcg/dose blister with device 1 inh INHALATION DAILY PRN PRN (Reason: ASTHMA) fenofibrate micronized 130 mg capsule 130 mg PO DAILY Vyepti 100 mg/mL solution 100 mg .Route .[id number] Rx Instructions: q 3 months atenolol 100 MG tablet 100 mg PO QHS Label Comments: citalopram 20 MG tablet 20 mg PO QHS Label Comments: amlodipine 10 MG tablet 10 mg PO QHS Label Comments: chlordiazepoxide-clidinium 5-2.5 mg capsule 1 cap PO DAILY nabumetone [Relafen] 500 mg tablet 500 mg PO BID PRN PRN (Reason: Pain) verapamil 240 mg DAILY Humira(CF) Pen Nxmf-Wl-Ltmf HS 80 mg/0.8 mL-40 mg/0.4 mL pen injector kit 40 ea SUBCUT QWEEK Primary Care Provider: Moustapha Bower Referrals: Moustapha Bower DO [Primary Care Provider] - 1 Week if not improving Disposition Disposition: Home, Self Care
[2022-10-01 11:02] LABS: Anion Gap 4 (5-15); BUN 21 mg/dL (7-18); BUN/Creat Ratio 23.9 RATIO (10-20); Calcium,Total 9.8 mg/dL (8.5-10.1); Chloride 105 mmol/L (98-107); Creatinine, Serum 0.88 mg/dL (0.55-1.02); EST Glomerular Filtration Rate 73 mL/min (>60); Est Glom Filt Rate - Afr Amer 88 mL/min (>60); Estimated Creatinine Clearance 61.16 ml/min; Glucose 144 mg/dL (74-106); Potassium 4.1 mmol/L (3.5-5.1); Sodium Level 139 mmol/L (136-145); Troponin-I HS 5 pg/mL (3.0-54.0)
[2022-10-01 11:53] VITALS: BP 122/78; PULSE 64; RESP 14; O2SAT 100
== END 2022-10-01 12:52 | disposition home or self-care (01) ==
PROVIDERS: Emergency Provider Emergency Medicine; PCP Family Medicine; Visit Provider Emergency Medicine
DX: R07.89 Other chest pain (principal); E11.65 Type 2 diabetes mellitus with hyperglycemia; Z79.4 Long term (current) use of insulin; J06.9 Acute upper respiratory infection, unspecified; I10 Essential (primary) hypertension; G47.30 Sleep apnea, unspecified; E66.9 Obesity, unspecified; Z79.899 Other long term (current) drug therapy
CPT/HCPCS: 71046; 80048; 84484; 85025; 87426; 93005; 99284; A4216

== ENCOUNTER 2023-02-23 17:34 | Emergency (ER) | payer BC, SELFPAY ==
[2023-02-23 17:35] VITALS: BP 142/80; PULSE 76; RESP 14; TEMP 36.2; O2SAT 100; BMI 53.6
[2023-02-23] MEDS: 0.9% Normal Saline 1,000 ML 999 ML IV (20:07)
--- NOTE | 2023-02-23 20:17 | ED.RN ---
PT REFUSED REGLAN. PT STATES SHE HAD REGLAN WHEN AND IT DID NOT WORK, I DID NOT REACT WELL TO IT. DR. MARTÍNEZ NOTIFIED. DR. MARTÍNEZ TO SWITCH ORDER TO [facility].
[2023-02-23] MEDS: Ketorolac 30 MG/ML Syringe IV (20:42)
[2023-02-23] MEDS: Ondansetron 4 MG/2 ML Vial IV (20:42)
[2023-02-23] MEDS: DiphenhydrAMINE 50 MG/ML Syringe 25 MG IV (20:43)
--- NOTE | 2023-02-23 20:57 | EX.ED.VIS.HA ---
HPI History of Present Illness Chief Complaint: Headache Informant: patient Onset/Context/Timing Onset: Weeks (3 weeks) Context: Gradual Timing: Waxes and wanes Quality -Headache: Positive for Similar Prior Headaches Current Severity: Moderate Maximum Severity: Moderate Narrative Narrative: Patient presents with 3-week history of migraine headache. She states that she gets both frontal as well as occipital migraines. Currently she has migraine in both locations. This particular migraine has been ongoing for 3 weeks. She contacted her physician who wrote her a 5-day burst of prednisone. She thought that was helping, but stopped the medication a day or 2 ago and now feels the headache is worsening again. She is had no recent head injuries. She has no URI symptoms. [facility] Medical History Acute sinusitis, unspecified Adenomyosis Anxiety Anxiety and depression Asthma Back pain Back pain BMI greater than 40 Cardiology follow-up encounter Chest pressure Contact with and (suspected) exposure to other viral communicable diseases Contact with and (suspected) exposure to other viral communicable diseases CPAP (continuous positive airway pressure) dependence Diabetes Dietary restriction Easy bruisability Essential hypertension Fatigue Fibroid, uterine Fibroids H/O MTHFR mutation High cholesterol History of echocardiogram History of IBS History of steroid therapy History of stress test Hyperlipemia Hypertension IBS (irritable bowel syndrome) Injury of head and neck Insulin dependent diabetes mellitus Kidney stones Menorrhagia Metrorrhagia Migraine (~06/03/17) Perimenopausal Shortness of breath Shortness of breath on exertion Sleep apnea Statin intolerance URI (upper respiratory infection) URI (upper respiratory infection) Wears glasses Home Medications amlodipine 10 mg tablet 10 mg PO QHS 04/30/18 [History Last Taken Unknown] atenolol 100 mg tablet 100 mg PO QHS 04/30/18 [History Last Taken Unknown] cholecalciferol (vitamin D3) 25 mcg (1,000 unit) capsule 1,000 unit PO DAILY 03/13/19 [History Last Taken Unknown] gabapentin 100 mg capsule 100 mg PO QHS 03/18/20 [History Last Taken Unknown] chlordiazepoxide-clidinium 5 mg-2.5 mg capsule 1 cap PO DAILY 11/14/21 [History Last Taken Unknown] fenofibrate micronized 130 mg capsule 130 mg PO DAILY 01/06/22 [History Last Taken Unknown] insulin glargine 100 unit-lixisenatide 33 mcg/mL subcutaneous pen (Soliqua 100/33) 50 unit subcut QHS 01/06/22 [History Last Taken Unknown] guselkumab 100 mg/mL subcutaneous auto-injector (Tremfya) 100 mg subcut Q8W 12/24/22 [History Last Taken Unknown] venlafaxine 75 mg capsule,extended release 24 hr (Effexor XR) 75 mg PO DAILY #30 caps 12/24/22 [Rx Last Taken Unknown] insulin glargine-yfgn 100 unit/mL subcutaneous solution (Semglee (insulin glargine-yfgn)) 100 unit subcut DAILY 01/12/23 [History Last Taken Unknown] tirzepatide 2.5 mg/0.5 mL subcutaneous pen injector (Mounjaro) 2.5 mg subcut QWEEK 01/12/23 [History Last Taken Unknown] Allergy/AdvReac Type Severity Reaction Status Date / Time lisinopril Allergy Mild Unknown Verified 11/05/22 10:39 aspartame Allergy Shortness Verified 11/05/22 10:39 of breath shellfish derived Allergy Angioedema Verified 11/05/22 10:39 Sulfa (Sulfonamide Allergy Rash Verified 11/05/22 10:39 Antibiotics) metformin AdvReac Intermediate Nausea Verified 11/05/22 10:39 Tdwnchr-HEE-IaS Reductase AdvReac Intermediate Diarrhea Verified 11/05/22 10:39 Inhibitor [Fptjgvx-Yny-Uyu Reductase Inhibitor] Penicillins AdvReac Diarrhea Verified 11/05/22 10:39 Family History Father Heart disease Grandmother Breast cancer Surgical History H/O lithotripsy H/O: hysterectomy History of LAVH History of right oophorectomy History of tonsillectomy Hx of cystoscopy Hx of cystoscopy Hx of LASIK Hx of wisdom tooth extraction S/P laparoscopic assisted vaginal hysterectomy (LAVH) Social History number of children: 2 current occupational status: employed 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 Smoking Status: Never smoker alcohol intake: current details: social substance use type: does not use caffeine: Yes what type of physical activity do you participate in: none seatbelt use: always additional social history: Carly Washburn 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 Constitutional Constitutional ED: Denies chills or fever(s) Eyes Eyes: Denies change in vision or discharge from eye(s) ENT ENT ED: Denies discharge from eye(s), rhinorrhea or sore throat Cardiovascular Cardiovascular: Denies chest pain or palpitations Respiratory/Chest Respiratory/Chest: Denies cough or dyspnea Gastrointestinal Gastrointestinal: Reports nausea; Denies abdominal pain, diarrhea or vomiting Genitourinary Genitourinary ED: Denies difficulty urinating or dysuria Musculoskeletal Musculoskeletal: Denies back pain or extremity pain Integumentary Denies Abrasions or rash Neurologic Neurologic: Reports headache(s); Denies weakness Psychiatric Psychiatric: Denies anxiety or depression Allergic/Immunologic Allergic/Immunologic ED: Denies lip swelling or urticaria EXAM Physical Exam Const Vital Signs: 02/23/23 17:35 Temperature 97.2 F L Temperature Source Temporal Pulse Rate 76 Respiratory Rate 14 Blood Pressure 142/80 H Blood Pressure Mean 100 Pulse Ox 100 Oxygen Delivery Method Room Air Positive well nourished and well developed General Appearance ED: well developed HEENT Reports normocephalic and head/scalp atraumatic Eyes PERRL and EOMs intact bilaterally Neck supple and no meningeal signs Chest Wall inspection of chest normal and palpation of chest normal Resp normal respiratory effort and clear to auscultation bilaterally Cardio regular rate and regular rhythm GI normal to inspection, nondistended, normoactive bowel sounds Palpation: soft Extremity normal to inspection Neuro oriented x3 and no sensory deficits noted Sensorium / Orientation: alert Motor Exam: strength 5/5 throughout Psych mental status grossly normal Skin no rashes or lesions noted MDM MDM MDM Narrative Medical decision making narrative: Patient ordered IV fluids along with Toradol, Reglan, Benadryl. Nursing staff states that the patient declined the Reglan stating that it has not worked for nausea for her in the past and she requested Zofran instead. Treatment and Re-Evaluation Narrative: On repeat evaluation patient does feel improved. She feels comfortable with discharge to home. Discharge Plan Triage Chief Complaint: Headache ED Provider: Jennifer Sanon Dx/Rx/DC Orders Clinical Impression: Migraine Instructions: ED, Migraine (Classical) Prescriptions: No Action Soliqua 100/33 100 unit-33 mcg/mL insulin pen 50 unit SC QHS cholecalciferol (vitamin D3) 1,000 unit capsule 1,000 unit capsule 1,000 unit PO DAILY gabapentin 100 mg capsule 100 mg PO QHS fenofibrate micronized 130 mg capsule 130 mg PO DAILY Tremfya 100 mg/mL auto-injector 100 mg subcut Q8W venlafaxine [Effexor XR] 75 mg capsule,extended release 24hr 75 mg PO DAILY Qty: 30 12RF insulin glargine-yfgn [Semglee(insulin glargine-yfgn)] 100 unit/mL solution 100 unit subcut DAILY Mounjaro 2.5 mg/0.5 mL pen injector 2.5 mg subcut QWEEK atenolol 100 MG tablet 100 mg PO QHS Label Comments: amlodipine 10 MG tablet 10 mg PO QHS Label Comments: chlordiazepoxide-clidinium 5-2.5 mg capsule 1 cap PO DAILY Primary Care Provider: Moustapha Bower Referrals: Moustapha Bower DO [Primary Care Provider] - 3-5 Days if not improving Disposition Disposition: Home, Self Care Discharge Date/Time: 02/23/23 22:14
== END 2023-02-23 22:14 | disposition home or self-care (01) ==
PROVIDERS: Emergency Provider Emergency Medicine; PCP Family Medicine; Visit Provider Emergency Medicine
DX: G43.909 Migraine, unspecified, not intractable, without status migrainosus (principal); G47.30 Sleep apnea, unspecified
CPT/HCPCS: 96374; 96375; 99283; J7030; A4216; J2405

== ENCOUNTER → 2023-02-23 | Outpatient (CLI) | payer BC, SELFPAY ==
--- NOTE | 2023-02-23 15:51 | BI_ITS ---
MAMMOGRAPHY - BILATERAL SCREENING REASON FOR EXAM: Female, 47 years old. Routine annual screening examination. PERTINENT HISTORY: Grandmother with breast cancer. TECHNIQUE: Digital bilateral breast mauro (3D mammographic acquisition) in the CC and MLO projections. 2-D mediolateral oblique (MLO) and craniocaudad (CC) views of both breasts were obtained. CAD: Full Field Digital Mammography with Computer Added Detection was performed. COMPARISON: Comparison is made with prior study dated January 12, 2022 and February 05, 2018. FINDINGS: Breast Composition: The breasts are almost entirely fatty. There are no dominant masses or suspicious calcifications. No other significant abnormalities are identified. There has been no significant change since the prior study. BI/SCRN MAMM (CAD)W/MAURO BILAT IMPRESSION: Stable bilateral screening mammogram. Yearly follow-up mammogram recommended. (A) ASSESSMENT CATEGORY: BIRADS Category 1: Negative. A letter regarding these results will be sent to the patient by the facility within 30 days. Approximately 10% of breast cancers are not detected by mammography. A normal mammogram should not delay biopsy of a clinically suspicious abnormality. [id number] Electronically Signed: Theron Blair MD at 8:16 EDT ,
== END | disposition home or self-care (01) ==
LOC: OPBI 15:50
PROVIDERS: PCP Family Medicine; Visit Provider Obstetrics & Gynecology
DX: Z12.31 Encounter for screening mammogram for malignant neoplasm of breast (principal)
CPT/HCPCS: 77063; 77067

== ENCOUNTER 2023-03-03 08:40 | Emergency (ER) | payer BC, SELFPAY ==
[2023-03-03 08:42] VITALS: BP 129/91; PULSE 86; RESP 18; TEMP 35.5; O2SAT 95; BMI 52.4
--- NOTE | 2023-03-03 08:57 | EDS_ITS ---
HPI History of Present Illness Chief Complaint: Nausea/Vomiting/Diarrhea Detail of Chief Complaint: Vomiting and diarrhea Informant: patient Narrative Narrative: Patient presents to the emergency department with complaint of vomiting and di arrhea that started 5 days ago. Patient states she was seen in the emergency department last week for migraine and treated successfully. Patient states she went home and then started having headache again and called her neurologist who started her on a new medication called Qulipta. She took that medication and then the following evening she started having frequent vomiting and abdominal cramping. Vomiting lasted for 1 night and then diarrhea started and she was having up to 3 episodes an hour. Patient took okxy-vpu-[id number] antidiarrheals and that was slowed down to about once every hour. Patient states that she is not currently having any abdominal pain. She has had some intermittent mild dysuria. Her concern is that she at times feels lightheaded and dizzy with standing. She denies any fevers. She denies sick contacts but then did recall that her daughter had some diarrhea but she thought it was related to patient's history of Crohn's. Patient states she has not thrown up in several days. Patient discussed with her neurologist and was advised to discontinue her new medications the Qulipta. [facility] Medical History Acute sinusitis, unspecified Adenomyosis Anxiety Anxiety and depression Asthma Back pain Back pain BMI greater than 40 Cardiology follow-up encounter Chest pressure Contact with and (suspected) exposure to other viral communicable diseases Contact with and (suspected) exposure to other viral communicable diseases CPAP (continuous positive airway pressure) dependence Diabetes Dietary restriction Easy bruisability Essential hypertension Fatigue Fibroid, uterine Fibroids H/O MTHFR mutation High cholesterol History of echocardiogram History of IBS History of steroid therapy History of stress test Hyperlipemia Hypertension IBS (irritable bowel syndrome) Injury of head and neck Insulin dependent diabetes mellitus Kidney stones Menorrhagia Metrorrhagia Migraine (~06/03/17) Perimenopausal Shortness of breath Shortness of breath on exertion Sleep apnea Statin intolerance URI (upper respiratory infection) URI (upper respiratory infection) Wears glasses Home Medications amlodipine 10 mg tablet 10 mg PO QHS 04/30/18 [History Last Taken Unknown] atenolol 100 mg tablet 100 mg PO QHS 04/30/18 [History Last Taken Unknown] cholecalciferol (vitamin D3) 25 mcg (1,000 unit) capsule 1,000 unit PO DAILY 03/13/19 [History Last Taken Unknown] gabapentin 100 mg capsule 100 mg PO QHS 03/18/20 [History Last Taken Unknown] chlordiazepoxide-clidinium 5 mg-2.5 mg capsule 1 cap PO DAILY 11/14/21 [History Last Taken Unknown] fenofibrate micronized 130 mg capsule 130 mg PO DAILY 01/06/22 [History Last Taken Unknown] insulin glargine 100 unit-lixisenatide 33 mcg/mL subcutaneous pen (Soliqua 100/33) 40 unit subcut QHS 01/06/22 [History Last Taken Unknown] guselkumab 100 mg/mL subcutaneous auto-injector (Tremfya) 100 mg subcut Q8W 12/24/22 [History Last Taken Unknown] tirzepatide 2.5 mg/0.5 mL subcutaneous pen injector (Mounjaro) 5 mg subcut QWEEK 01/12/23 [History Last Taken Unknown] eptinezumab-jjmr 100 mg/mL intravenous solution (Vyepti) mg IV 03/03/23 [History Last Taken Unknown] promethazine 12.5 mg tablet 12.5 mg PO TID PRN nausea and vomiting #10 tabs 03/03/23 [Rx Last Taken Unknown] venlafaxine 75 mg capsule,extended release 24 hr (Effexor XR) 150 mg PO DAILY 03/03/23 [History Last Taken Unknown] Allergy/AdvReac Type Severity Reaction Status Date / Time lisinopril Allergy Mild Unknown Verified 03/03/23 08:46 aspartame Allergy Shortness Verified 03/03/23 08:46 of breath shellfish derived Allergy Angioedema Verified 03/03/23 08:46 Sulfa (Sulfonamide Allergy Rash Verified 03/03/23 08:46 Antibiotics) metformin AdvReac Intermediate Nausea Verified 03/03/23 08:46 Bnowitm-CWF-IgO Reductase AdvReac Intermediate Diarrhea Verified 03/03/23 08:46 Inhibitor [Yuckijp-Vtp-Wdh Reductase Inhibitor] Penicillins AdvReac Diarrhea Verified 03/03/23 08:46 Family History Father Heart disease Grandmother Breast cancer Surgical History H/O lithotripsy H/O: hysterectomy History of LAVH History of right oophorectomy History of tonsillectomy Hx of cystoscopy Hx of cystoscopy Hx of LASIK Hx of wisdom tooth extraction S/P laparoscopic assisted vaginal hysterectomy (LAVH) Social History number of children: 2 current occupational status: employed 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 Smoking Status: Never smoker alcohol intake: current details: social substance use type: does not use caffeine: Yes what type of physical activity do you participate in: none seatbelt use: always additional social history: Carly Washburn 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 ROS ROS ED Constitutional Constitutional ED: Reports systems reviewed and no addt'l complaints, except as documented; Denies body ache(s), change in weight or chills Eyes Eyes: Denies acute decrease in peripheral vision, change in vision, double vision or loss of vision ENT ENT ED: Reports none; Denies ear pain, lip swelling, loss taste/smell, neck pain, otalgia or sore throat Cardiovascular Cardiovascular: Reports none; Denies abdominal pain, chest pain with activity, leg edema, lightheadedness, palpitations, rapid heart rate or syncope Respiratory/Chest Respiratory/Chest: Reports none; Denies change in mental status, dry cough, dyspnea, hemoptysis, shortness of breath at rest or shortness of breath with exertion Gastrointestinal Gastrointestinal: Reports none, diarrhea and vomiting; Denies abdominal pain, change in stool character, hematemesis, hematochezia, melena or rectal bleeding Genitourinary Genitourinary ED: Reports none; Denies abdominal discomfort, anuria, dysuria, genital pain or polyuria Musculoskeletal Musculoskeletal: Reports none; Denies arthralgias, back pain, difficulty walking, extremity pain, muscle weakness or myalgias Integumentary Reports none; Denies abscess or rash Neurologic Neurologic: Reports none; Denies abnormal gait, confusion, focal weakness, frequent falls, headache(s), loss of vision, numbness, paresthesias, radicular pain, vertigo or weakness Psychiatric Psychiatric: Reports systems reviewed and no addt'l complaints, except as documented and none; Denies behavioral changes, confusion, difficulty concentrating, hallucinations, suicidal ideation, tactile hallucinations or visual hallucinations Endocrine Endocrinology: Denies none, cold intolerance, excessive sweating, fatigue or heat intolerance Hematologic/Lymphatic Hematologic/Lymphatic: Reports none; Denies anemia, easy bleeding or easy bruising Allergic/Immunologic Allergic/Immunologic ED: Denies as per HPI, none, lip swelling, mouth swelling, throat swelling, tongue swelling or hives EXAM Physical Exam Const Vital Signs: 03/03/23 08:42 03/03/23 09:17 Temperature 96 F L 97.2 F L Temperature Source Temporal Temporal Pulse Rate 86 Respiratory Rate 18 Blood Pressure 129/91 H Blood Pressure Mean 103 Pulse Ox 95 Oxygen Delivery Method Room Air Positive well nourished and well developed General Appearance ED: well developed and NAD HEENT Reports TM's clear and moist mucous membranes normocephalic and atraumatic; Negative for trauma or tenderness Tympanic Membrane ED: Yes TM's clear Eyes PERRL and EOMs intact bilaterally General Eye ED: Negative for pale conjunctiva or scleral icterus Neck no lymphadenopathy, supple and no JVD General: Negative for tenderness Chest Wall inspection of chest normal and palpation of chest normal Chest: Negative for tenderness Resp normal respiratory effort and clear to auscultation bilaterally Effort and Inspection: Negative for respiratory distress or pain with movement Auscultation: Negative for rhonchi, wheezes or diminished lung sounds Cardio regular rate, regular rhythm, S1 normal heart sound, S2 normal heart sound and no murmurs Peripheral Pulses: pulses 2+ throughout GI normal to inspection, nondistended, normoactive bowel sounds, soft to palpation, non-tender, non-distended and no masses Back/Spine no CVA tenderness and no thoracic nor lumbar tenderness Extremity normal to inspection General Extremety ED: Negative for edema General Extremity: Negative for edema Neuro oriented x3, CN's II-XII intact bilaterally, no sensory deficits noted and gait normal Sensorium / Orientation: awake, alert, oriented to person, oriented to place and oriented to time Motor Exam: strength 5/5 throughout and strength abnormal Psych mental status grossly normal Skin no rashes or lesions noted and no wounds MDM MDM MDM Narrative Medical decision making narrative: Patient presents with vomiting and diarrhea. Temporally related to new medication Qulipta. Patient continues with the diarrhea. In the differential would be medication side effect versus viral gastroenteritis. We will obtain orthostatic blood pressures. Patient will be given a liter fluid bolus. Basic labs will be obtained. I did order a stool for enteric pathogen's. Patient unable to give stool sample in the department. CBC with differential was unremarkable with a white count of 6.6 and hemoglobin 13.6 hematocrit 43.2 and platelets of 283. Chemistries unremarkable. BUN was 26 and creatinine 0.94. Urinalysis showed no signs of infection. Patient was given a liter normal same fluid bolus. At this time patient will be discharged to home with a prescrip tion to bring in a stool sample for enteric pathogens. Etiology of her diarrhea unclear although I suspect it may be viral cannot rule out medication related although she has discontinued the new medication for her migraines. Lab Data Labs: Laboratory Results - last 24 hr 03/03/23 03/03/23 03/03/23 09:10 09:10 10:05 WBC 6.6 RBC 4.88 Hgb 13.6 Hct 43.2 MCV 88.5 MCH 27.9 MCHC 31.5 L RDW Std Deviation 43.1 RDW Coeff of Margarita 13.3 Plt Count 283 MPV 9.3 Immature Gran % (Auto) 0.500 Neut % (Auto) 65.5 Lymph % (Auto) 24.3 [place] % (Auto) 7.6 Eos % (Auto) 1.8 Baso % (Auto) 0.3 Absolute Neuts (auto) 4.3 Absolute Lymphs (auto) 1.59 Nucleated RBC % 0 Sodium 138 Potassium 4.3 Chloride 108 H Carbon Dioxide 22.0 Anion Gap 8 BUN 26 H Creatinine 0.94 Estim Creat Clear Calc 57.26 Est GFR (MDRD) Af Amer 81 Est GFR (MDRD) Non-Af 67 BUN/Creatinine Ratio 27.6 H Glucose 148 H Calcium 9.4 Urine Color Yellow Urine Clarity Sl. Cloudy Urine pH 5.0 Ur Specific [place] 1.025 Urine Protein 30 H Urine Glucose (UA) Normal Urine Ketones 5 H Urine Occult Blood 25 H Urine Nitrite Negative Urine Bilirubin Negative Urine Urobilinogen Normal Ur Leukocyte Esterase 25 H Discharge Plan Triage Chief Complaint: Nausea/Vomiting/Diarrhea ED Provider: Nicholas Mcgee Dx/Rx/DC Orders Clinical Impression: Vomiting and diarrhea Instructions: ED Vomiting and Diarrhea ... Prescriptions: New promethazine 12.5 mg tablet 12.5 mg PO TID PRN (Reason: nausea and vomiting) Qty: 10 0RF Rx Instructions: 3 doses during day; last dose no later than 4 hr before bedtime No Action Soliqua 100/33 100 unit-33 mcg/mL insulin pen 40 unit SC QHS cholecalciferol (vitamin D3) 1,000 unit capsule 1,000 unit capsule 1,000 unit PO DAILY gabapentin 100 mg capsule 100 mg PO QHS fenofibrate micronized 130 mg capsule 130 mg PO DAILY Tremfya 100 mg/mL auto-injector 100 mg subcut Q8W Mounjaro 2.5 mg/0.5 mL pen injector 5 mg subcut QWEEK atenolol 100 MG tablet 100 mg PO QHS Label Comments: amlodipine 10 MG tablet 10 mg PO QHS Label Comments: chlordiazepoxide-clidinium 5-2.5 mg capsule 1 cap PO DAILY Vyepti 100 mg/mL solution IV Label Comments: GIVE 1 VIAL EVERY 90 DAYS Rx Instructions: [id number] venlafaxine [Effexor XR] 75 mg capsule,extended release 24hr 150 mg PO DAILY Primary Care Provider: Moustapha Bower Referrals: Moustapha Bower DO [Primary Care Provider] - 3-5 Days Disposition Disposition: Home, Self Care
[2023-03-03] MEDS: 0.9% Normal Saline 1,000 ML 1000 ML IV (09:16)
[2023-03-03 09:17] VITALS: TEMP 36.2
[2023-03-03 09:18] LABS: Absolute Lymphocyte Count 1.59 X10^3/uL (0.83-4.51); Absolute Neutrophil Count 4.3 X10^3/uL (2.0-7.7); Basophil# 0.02 X10^3/uL; Basophil% 0.3 % (0-1); Eosinophil# 0.12 X10^3/uL; Eosinophils% 1.8 % (0-5); Hematocrit 43.2 % (37-47); Hemoglobin 13.6 g/dL (12.0-15.0); Lymphocyte # 1.59 X10^3/ul (0.83-4.51); Lymphocyte % 24.3 % (19-41); Mean Corp Hgb Conc 31.5 g/dL (32-36); Mean Corpuscular Hgb 27.9 pg (27.0-32.0); Mean Corpuscular Volume 88.5 fL (81-99); Mean Platelet Vol. 9.3 fl (6.2-12.0); Monocyte% 7.6 % (0-10); NRBC Flagged by Analyzer 0 % (0-5); Neutrophil # 4.29 X10^3/uL (2.7-7.7); Neutrophil % 65.5 % (47-70); Platelet Count 283 K/mm3 (150-450); RBC Distribution Width CV 13.3 % (11.6-14.6); RBC Distribution Width SD 43.1 fl (35.1-43.9); Red Blood Count 4.88 M/mm3 (4.2-5.4); White Blood Count 6.6 K/mm3 (4.4-11.0)
[2023-03-03 09:33] LABS: Anion Gap 8 (5-15); BUN 26 mg/dL (7-18); BUN/Creat Ratio 27.6 RATIO (10-20); Calcium,Total 9.4 mg/dL (8.5-10.1); Chloride 108 mmol/L (98-107); Creatinine, Serum 0.94 mg/dL (0.55-1.02); EST Glomerular Filtration Rate 67 mL/min (>60); Est Glom Filt Rate - Afr Amer 81 mL/min (>60); Estimated Creatinine Clearance 57.26 ml/min; Glucose 148 mg/dL (74-106); Potassium 4.3 mmol/L (3.5-5.1); Sodium Level 138 mmol/L (136-145)
[2023-03-03 10:12] LABS: Mucous, Urine 0 SEEN /hpf (<or=2+); Red Blood Cells-Urine 0 SEEN /hpf (0-5); White Blood Cells 0 SEEN /hpf (0-5)
[2023-03-03 10:29] LABS: Color, Urine Yellow (Yellow); Glucose, Dipstick Normal (Normal); Ketone-Dipstick 5 mg/dl (Negative); Leukocyte Esterase-Dipstick 25 /ul (Negative); Nitrite-Dipstick Negative (Negative); Occult Blood-Urine 25 /ul (Negative); Protein-Dipstick 30 mg/dl (Negative); Specific Gravity, Urine 1.025 (1.002-1.030); Urine Bilirubin Dipstick Negative (Negative); Urine Clarity Sl. Cloudy (Clear); Urine Urobilinogen Normal (Normal)
[2023-03-03 10:45] LABS: Bacteria 1+ /hpf (None Seen); Calcium Oxalate Crystals Ur 2+ /hpf (<or=2+); Squamous Epithelial Cells - UA 5-10 SEEN /hpf (5-10)
== END 2023-03-03 11:51 | disposition home or self-care (01) ==
PROVIDERS: Emergency Provider Emergency Medicine; PCP Family Medicine; Visit Provider Emergency Medicine
DX: R11.2 Nausea with vomiting, unspecified (principal); E11.9 Type 2 diabetes mellitus without complications; Z79.4 Long term (current) use of insulin; R19.7 Diarrhea, unspecified; I10 Essential (primary) hypertension; G47.30 Sleep apnea, unspecified; Z79.899 Other long term (current) drug therapy
CPT/HCPCS: 80048; 81001; 85025; 96360; 99283; J7030; A4216

== ENCOUNTER 2023-04-14 08:33 | Emergency (ER) | payer BC, SELFPAY ==
[2023-04-14 08:34] VITALS: BP 149/93; PULSE 92; RESP 18; TEMP 36.4; O2SAT 100
--- NOTE | 2023-04-14 08:49 | ED.VIS.FEGU ---
HPI HPI - Female History of Present Illness Chief Complaint: Flank Pain Informant: patient Narrative Narrative: Patient states she started having urinary symptoms almost a week ago, feeling like she has to go often but many times nothing coming out or feeling like she cannot urinate. At times it is tea colored other times it almost looks bloody/strawberry colored, and other times it is normal. She denies any blood clots or urinary retention. She states that 3 days ago she had a migraine and had some vomiting, that is gone now but that is when her low back pain started. Nonlateralizing. Also having some lower abdominal pain that is also nonlateralizing. No regi dysuria. No fevers, chills, vomiting now. [facility] Medical History Acute sinusitis, unspecified Adenomyosis Anxiety Anxiety and depression Asthma Back pain Back pain BMI greater than 40 Cardiology follow-up encounter Chest pressure Contact with and (suspected) exposure to other viral communicable diseases Contact with and (suspected) exposure to other viral communicable diseases CPAP (continuous positive airway pressure) dependence Diabetes Dietary restriction Easy bruisability Essential hypertension Fatigue Fibroid, uterine Fibroids H/O MTHFR mutation High cholesterol History of echocardiogram History of IBS History of steroid therapy History of stress test Hyperlipemia Hypertension IBS (irritable bowel syndrome) Injury of head and neck Insulin dependent diabetes mellitus Kidney stones Menorrhagia Metrorrhagia Migraine (~06/03/17) Perimenopausal Shortness of breath Shortness of breath on exertion Sleep apnea Statin intolerance URI (upper respiratory infection) URI (upper respiratory infection) Wears glasses Home Medications amlodipine 10 mg tablet 10 mg PO QHS 04/30/18 [History Last Taken Unknown] atenolol 100 mg tablet 100 mg PO QHS 04/30/18 [History Last Taken Unknown] cholecalciferol (vitamin D3) 25 mcg (1,000 unit) capsule 1,000 unit PO DAILY 03/13/19 [History Last Taken Unknown] gabapentin 100 mg capsule 100 mg PO QHS 03/18/20 [History Last Taken Unknown] chlordiazepoxide-clidinium 5 mg-2.5 mg capsule 1 cap PO DAILY 11/14/21 [History Last Taken Unknown] fenofibrate micronized 130 mg capsule 130 mg PO DAILY 01/06/22 [History Last Taken Unknown] insulin glargine 100 unit-lixisenatide 33 mcg/mL subcutaneous pen (Soliqua /33) 40 unit subcut QHS 01/06/22 [History Last Taken Unknown] guselkumab 100 mg/mL subcutaneous auto-injector (Tremfya) 100 mg subcut Q8W 12/24/22 [History Last Taken Unknown] tirzepatide 2.5 mg/0.5 mL subcutaneous pen injector (Mounjaro) 5 mg subcut QWEEK 01/12/23 [History Last Taken Unknown] eptinezumab-jjmr 100 mg/mL intravenous solution (Vyepti) mg IV 03/03/23 [History Last Taken Unknown] promethazine 12.5 mg tablet 12.5 mg PO TID PRN nausea and vomiting #10 tabs 03/03/23 [Rx Last Taken Unknown] venlafaxine 75 mg capsule,extended release 24 hr (Effexor XR) 150 mg PO DAILY 03/03/23 [History Last Taken Unknown] nitrofurantoin monohydrate/macrocrystals 100 mg capsule 100 mg PO Q12 #10 CAPSULES 04/14/23 [Rx Last Taken Unknown] phenazopyridine 200 mg tablet (Pyridium) 200 mg PO TID PRN pain w/ urination #10 tabs 04/14/23 [Rx Last Taken Unknown] Allergy/AdvReac Type Severity Reaction Status Date / Time lisinopril Allergy Mild Unknown Verified 04/14/23 08:33 aspartame Allergy Shortness Verified 04/14/23 08:33 of breath shellfish derived Allergy Angioedema Verified 04/14/23 08:33 Sulfa (Sulfonamide Allergy Rash Verified 04/14/23 08:33 Antibiotics) metformin AdvReac Intermediate Nausea Verified 04/14/23 08:33 Cjcygmf-BGF-XuA Reductase AdvReac Intermediate Diarrhea Verified 04/14/23 08:33 Inhibitor [Gxdzeiy-Wqh-Dli Reductase Inhibitor] Penicillins AdvReac Diarrhea Verified 04/14/23 08:33 Family History Father Heart disease Grandmother Breast cancer Surgical History H/O lithotripsy H/O: hysterectomy History of LAVH History of right oophorectomy History of tonsillectomy Hx of cystoscopy Hx of cystoscopy Hx of LASIK Hx of wisdom tooth extraction S/P laparoscopic assisted vaginal hysterectomy (LAVH) Social History number of children: 2 current occupational status: employed 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 Smoking Status: Never smoker alcohol intake: current details: social substance use type: does not use caffeine: Yes what type of physical activity do you participate in: none seatbelt use: always additional social history: Carly Washburn 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 ROS ROS ED Constitutional Constitutional ED: Denies chills or fever(s) Eyes Eyes: Denies change in vision or diplopia ENT ENT ED: Denies rhinorrhea or sore throat Cardiovascular Cardiovascular: Denies chest pain or palpitations Respiratory/Chest Respiratory/Chest: Denies cough or dyspnea Gastrointestinal Gastrointestinal: Reports abdominal pain; Denies diarrhea, nausea or vomiting Genitourinary Genitourinary ED: Reports as per HPI, change in urinary stream, hematuria, urinary frequency and urinary urgency; Denies dysuria Musculoskeletal Musculoskeletal: Reports back pain; Denies neck pain Integumentary Denies abscess or rash Neurologic Neurologic: Denies headache(s), paresthesias or weakness Psychiatric Psychiatric: Denies anxiety or suicidal thoughts EXAM Physical Exam Const Vital Signs: 04/14/23 08:34 Temperature 97.6 F L Temperature Source Temporal Pulse Rate 92 Respiratory Rate 18 Blood Pressure 149/93 H Blood Pressure Mean 111 Pulse Ox 100 Oxygen Delivery Method Room Air Positive well nourished, well developed and obese General Appearance ED: well developed and NAD Nutritional Appearance: obese HEENT Reports moist mucous membranes normocephalic and atraumatic Eyes PERRL and EOMs intact bilaterally Neck full ROM and supple Resp normal respiratory effort and clear to auscultation bilaterally Cardio regular rate, regular rhythm and no murmurs GI non-tender and non-distended Auscultation: normoactive bowel sounds Palpation: soft Back/Spine no CVA tenderness General Back: other FROM Extremity normal to inspection General Extremety ED: Negative for edema, pulses abnormal or tenderness General Extremity: Negative for edema or pulses abnormal Neuro oriented x3, CN's II-XII intact bilaterally and no sensory deficits noted Sensorium / Orientation: awake and alert Motor Exam: strength 5/5 throughout Skin no rashes or lesions noted and no wounds MDM MDM MDM Narrative Medical decision making narrative: History and exam are consistent with hemorrhagic cystitis. She states I have a history of kidney stones. She does not have symptoms of renal colic nor does she have any CVA tenderness, her abdomen is benign, and I do not think this sounds like a ureteral obstruction which I discussed with her. Obtained a urinalysis initially, it shows bacteria, pyuria without epithelial cells, but no leukocyte Estrace or nitrite. It does also show calcium oxalate crystals. My suspicion that the patient has hemorrhagic cystitis, but since some of the infection indicators are negative, I offered a CT of the abdomen/pelvis since the patient states she thinks she may be having a kidney stone. She wants that. It was done, I reviewed the images and report I agree with it, negative for anything acute. Therefore my recommendation is to try a short course of antibiotics empirically and send the urine for culture. She is allergic to sulfa medications so we will put her on 5 days of Macrobid and advised close outpatient follow-up. Lab Data Attestation: I reviewed the patient's lab results. Labs: Laboratory Results - last 24 hr 04/14/23 09:18 Urine Color Yellow Urine Clarity Sl. Cloudy Urine pH 5.0 Ur Specific [place] 1.030 Urine Protein 30 H Urine Glucose (UA) 100 H Urine Ketones 5 H Urine Occult Blood 10 H Urine Nitrite Negative Urine Bilirubin Negative Urine Urobilinogen 1 H Ur Leukocyte Esterase Negative Urine RBC 0 SEEN Urine WBC 10-25 SEEN Ur Squamous Epith Cells 0-5 SEEN Calcium Oxalate Crystal 2+ Urine Bacteria 2+ Urine Mucus 0 SEEN Radiography Diagnostic Testing: Clinical Impression(s) from Imaging Studies Abdomen/Pelvis CT 04/14/23 09:56 IMPRESSION: No acute abnormalities. Electronically Signed: Theron Blair MD at 10:51 EDT , Discharge Plan Triage Chief Complaint: Flank Pain ED Provider: Luis F Hernandez Dx/Rx/DC Orders Clinical Impression: Acute hemorrhagic cystitis Instructions: ED Cystitis Female Adult Prescriptions: New phenazopyridine [Pyridium] 200 mg tablet 200 mg PO TID PRN (Reason: pain w/ urination) Qty: 10 0RF nitrofurantoin monohyd/m-cryst [nitrofurantoin monohyd/m-cryst] 100 mg capsule 100 mg PO Q12 Qty: 10 0RF No Action Soliqua 100/33 100 unit-33 mcg/mL insulin pen 40 unit SC QHS cholecalciferol (vitamin D3) 1,000 unit capsule 1,000 unit capsule 1,000 unit PO DAILY gabapentin 100 mg capsule 100 mg PO QHS fenofibrate micronized 130 mg capsule 130 mg PO DAILY Tremfya 100 mg/mL auto-injector 100 mg subcut Q8W Mounjaro 2.5 mg/0.5 mL pen injector 5 mg subcut QWEEK atenolol 100 MG tablet 100 mg PO QHS Label Comments: amlodipine 10 MG tablet 10 mg PO QHS Label Comments: chlordiazepoxide-clidinium 5-2.5 mg capsule 1 cap PO DAILY Vyepti 100 mg/mL solution IV Label Comments: GIVE 1 VIAL EVERY 90 DAYS Rx Instructions: [id number] venlafaxine [Effexor XR] 75 mg capsule,extended release 24hr 150 mg PO DAILY promethazine 12.5 mg tablet 12.5 mg PO TID PRN (Reason: nausea and vomiting) Qty: 10 0RF Rx Instructions: 3 doses during day; last dose no later than 4 hr before bedtime Primary Care Provider: Moustapha Bower Referrals: Moustapha Bower DO [Primary Care Provider] - 3-5 Days if not improving Disposition Disposition: Home, Self Care
[2023-04-14 08:56] VITALS: BMI 51.5
[2023-04-14 09:22] LABS: Mucous, Urine 0 SEEN /hpf (<or=2+); Red Blood Cells-Urine 0 SEEN /hpf (0-5)
[2023-04-14 09:25] LABS: Color, Urine Yellow (Yellow); Glucose, Dipstick 100 mg/dl (Normal); Ketone-Dipstick 5 mg/dl (Negative); Nitrite-Dipstick Negative (Negative); Occult Blood-Urine 10 /ul (Negative); Protein-Dipstick 30 mg/dl (Negative); Urine Bilirubin Dipstick Negative (Negative); Urine Urobilinogen 1 mg/dl (Normal)
[2023-04-14 09:34] LABS: Leukocyte Esterase-Dipstick Negative /ul (Negative); Urine Clarity Sl. Cloudy (Clear)
[2023-04-14 09:51] LABS: Bacteria 2+ /hpf (None Seen); Calcium Oxalate Crystals Ur 2+ /hpf (<or=2+); Squamous Epithelial Cells - UA 0-5 SEEN /hpf (5-10); White Blood Cells 10-25 SEEN /hpf (0-5)
--- NOTE | 2023-04-14 09:56 | CT_ITS ---
STUDY: CT ABDOMEN AND PELVIS WITHOUT CONTRAST REASON FOR EXAM: Female, 47 years old. Abd and back pain, urinary sx, kx stones RADIATION DOSAGE (If Supplied By Facility): CTDIvol = ( 30.09 ) mGy, DLP = ( 1699.00 ) mGycm TECHNIQUE: Transaxial images were obtained from the dome of the diaphragm to the symphysis pubis without oral contrast, and without intravenous contrast. Sagittal and coronal images were reconstructed. Individualized dose optimization techniques were used for this CT. COMPARISON: Comparison is made with prior study dated January 30, 2022. FINDINGS: Calcified granuloma in the left lower lobe. Coronary artery calcification. Normal liver. Normal gallbladder and extrahepatic biliary system. There is a benign calcified granuloma of the spleen. Normal pancreas. Normal bilateral adrenal glands. Punctate nonobstructive calculus in the upper pole calyx of the right kidney. Normal left kidney. There is a small hiatal hernia. Normal small intestine. Normal colon. The appendix is visualized and appears normal. There is scattered atherosclerotic calcification of the abdominal aorta, without a demonstrated aneurysm. Normal inferior vena cava. Normal retroperitoneum. Normal urinary bladder. There is absence of the uterus consistent with a prior hysterectomy. Normal abdominal wall. Mild degree of spondylosis and disc space narrowing at the L5-S1 level. CT/Abdomen/Pelvis without Cont IMPRESSION: No acute abnormalities. Electronically Signed: Theron Blair MD at 10:51 EDT ,
[2023-04-14 11:21] VITALS: RESP 18
== END 2023-04-14 11:22 | disposition home or self-care (01) ==
PROVIDERS: Emergency Provider Emergency Medicine; PCP Family Medicine; Visit Provider Emergency Medicine
DX: N30.90 Cystitis, unspecified without hematuria (principal); G47.30 Sleep apnea, unspecified
CPT/HCPCS: 74176; 81001; 87086; 87088; 99282

== ENCOUNTER → 2023-04-23 | Outpatient (CLI) | payer BC, SELFPAY ==
[2023-04-23 12:15] LABS: Absolute Lymphocyte Count 1.59 X10^3/uL (0.83-4.51); Absolute Neutrophil Count 4.1 X10^3/uL (2.0-7.7); Hemoglobin 13.7 g/dL (12.0-15.0); Lymphocyte # 1.59 X10^3/ul (0.83-4.51); Mean Corp Hgb Conc 31.1 g/dL (32-36); Mean Platelet Vol. 10.1 fl (6.2-12.0); Monocyte# 0.38 X10^3/uL; Monocyte% 6.2 % (0-10); NRBC Flagged by Analyzer 0 % (0-5); Neutrophil # 4.11 X10^3/uL (2.7-7.7); Neutrophil % 67.3 % (47-70); Platelet Count 293 K/mm3 (150-450); RBC Distribution Width CV 13.4 % (11.6-14.6); RBC Distribution Width SD 44.4 fl (35.1-43.9); Red Blood Count 4.89 M/mm3 (4.2-5.4); White Blood Count 6.1 K/mm3 (4.4-11.0)
[2023-04-23 13:02] LABS: ALB/GLOB Ratio 1.2 RATIO (0.9-2.4); AST(SGOT) 27 U/L (15-37); Alanine Aminotransfer ALT/SGPT 50 U/L (13-56); Albumin, Serum 4.1 g/dL (3.2-5.0); Alkaline Phosphatase 68 U/L (45-117); Anion Gap 8 (5-15); BUN 21 mg/dL (7-18); BUN/Creat Ratio 25.9 RATIO (10-20); Calcium,Total 9.4 mg/dL (8.5-10.1); Chloride 104 mmol/L (98-107); Cholesterol 261 mg/dL (200); Creatinine, Serum 0.81 mg/dL (0.55-1.02); EST Glomerular Filtration Rate 80 mL/min (>60); Est Glom Filt Rate - Afr Amer 96 mL/min (>60); Globulin 3.5 g/dL (2.2-4.2); Glucose 158 mg/dL (74-106); High Density Lipoprotein 42 mg/dL; Potassium 3.7 mmol/L (3.5-5.1); Protein, Total 7.6 g/dL (6.4-8.2); Sodium Level 139 mmol/L (136-145); Thyroid Stim Hormone (TSH) 0.57 uIU/mL (0.358-3.74); Triglycerides 159 mg/dL; Very Low Density Lipoprotein 32 mg/dL (5-40)
[2023-04-23 13:10] LABS: Hemoglobin A1c 6.9 % (3.8-5.6)
[2023-04-23 13:11] LABS: Microalbumin,Random Urine 28.6 mg/L (NO RANGE EST.)
== END | disposition home or self-care (01) ==
LOC: BFHLAB 09:02
PROVIDERS: PCP Family Medicine; Referring Provider Family Medicine; Visit Provider Family Medicine
DX: Z00.00 Encounter for general adult medical examination without abnormal findings (principal); E11.9 Type 2 diabetes mellitus without complications
CPT/HCPCS: 36415; 80053; 80061; 82043; 82570; 83036; 84443; 85025

== ENCOUNTER 2023-05-11 06:52 | Emergency (ER) | payer BC, SELFPAY ==
[2023-05-11 06:54] VITALS: BP 129/83; PULSE 86; RESP 18; TEMP 35.7; O2SAT 99; BMI 51.5
--- NOTE | 2023-05-11 07:23 | RAD_ITS ---
EXAM: XR RIGHT ANKLE COMPLETE, 3 OR MORE VIEWS CLINICAL INDICATION: Trauma TECHNIQUE: Frontal, lateral and oblique views of the right ankle. COMPARISON: Right ankle radiographs of 04/30/2018. FINDINGS: BONES/JOINTS: There is been interval development of an acute, oblique fracture of the distal right fibula, with the fracture line extending superolaterally from the level of the tibial plafond. The distal fibular fracture fragment is displaced laterally by 3 mm, and the fracture fragments are minimally impacted. Ankle joint space is symmetric. Plantar and posterior calcaneal spurs are present. There is a stable old avulsion fracture or accessory ossicle adjacent to the distal tip of the medial malleolus. No acute fracture of the medial malleolus or posterior malleolus is identified. No sclerotic or destructive changes observed. SOFT TISSUES: Soft tissue swelling noted about the lateral aspect of the ankle. No radiopaque foreign body. RAD/Ankle min 3 Views IMPRESSION: Mildly displaced oblique fracture of the distal right fibula, with surrounding soft tissue swelling. No dislocation. Electronically Signed: Ashok Valentin MD at 7:42 EDT ,
--- NOTE | 2023-05-11 07:24 | ED.VIS.LOWEX ---
HPI History of Present Illness Chief Complaint: Lower Extremity Injury Narrative Narrative: 47-year-old female past medical history of hypertension, diabetes, presents with injury to her right ankle that she sustained earlier this morning. She states she was sitting on the stairway from her house to the garage, on the second step putting on her shoes. She stood up and tried to step down, twisted her right ankle, and fell. She denies hitting her head or loss of consciousness, or other injury. She complains of pain mainly on the lateral aspect of her right ankle. She is able to bear weight, but has sharp, shooting pain with movement. She denies other injury. She has noticed swelling on the lateral aspect of her right ankle. [facility] Medical History Acute sinusitis, unspecified Adenomyosis Anxiety Anxiety and depression Asthma Back pain Back pain BMI greater than 40 Cardiology follow-up encounter Chest pressure Contact with and (suspected) exposure to other viral communicable diseases Contact with and (suspected) exposure to other viral communicable diseases CPAP (continuous positive airway pressure) dependence Diabetes Dietary restriction Easy bruisability Essential hypertension Fatigue Fibroid, uterine Fibroids H/O MTHFR mutation High cholesterol History of echocardiogram History of IBS History of steroid therapy History of stress test Hyperlipemia Hypertension IBS (irritable bowel syndrome) Injury of head and neck Insulin dependent diabetes mellitus Kidney stones Menorrhagia Metrorrhagia Migraine (~06/03/17) Perimenopausal Shortness of breath Shortness of breath on exertion Sleep apnea Statin intolerance URI (upper respiratory infection) URI (upper respiratory infection) Wears glasses Home Medications amlodipine 10 mg tablet 10 mg PO QHS 04/30/18 [History Last Taken Unknown] atenolol 100 mg tablet 100 mg PO QHS 04/30/18 [History Last Taken Unknown] cholecalciferol (vitamin D3) 25 mcg (1,000 unit) capsule 1,000 unit PO DAILY 03/13/19 [History Last Taken Unknown] gabapentin 100 mg capsule 100 mg PO QHS 03/18/20 [History Last Taken Unknown] chlordiazepoxide-clidinium 5 mg-2.5 mg capsule 1 cap PO DAILY 11/14/21 [History Last Taken Unknown] fenofibrate micronized 130 mg capsule 130 mg PO DAILY 01/06/22 [History Last Taken Unknown] insulin glargine 100 unit-lixisenatide 33 mcg/mL subcutaneous pen (Soliqua 100/33) 40 unit subcut QHS 01/06/22 [History Last Taken Unknown] guselkumab 100 mg/mL subcutaneous auto-injector (Tremfya) 100 mg subcut Q8W 12/24/22 [History Last Taken Unknown] tirzepatide 2.5 mg/0.5 mL subcutaneous pen injector (Mounjaro) 5 mg subcut QWEEK 01/12/23 [History Last Taken Unknown] eptinezumab-jjmr 100 mg/mL intravenous solution (Vyepti) mg IV 03/03/23 [History Last Taken Unknown] promethazine 12.5 mg tablet 12.5 mg PO TID PRN nausea and vomiting #10 tabs 03/03/23 [Rx Last Taken Unknown] venlafaxine 75 mg capsule,extended release 24 hr (Effexor XR) 150 mg PO DAILY 03/03/23 [History Last Taken Unknown] nitrofurantoin monohydrate/macrocrystals 100 mg capsule 100 mg PO Q12 #10 CAPSULES 04/14/23 [Rx Last Taken Unknown] phenazopyridine 200 mg tablet (Pyridium) 200 mg PO TID PRN pain w/ urination #10 tabs 04/14/23 [Rx Last Taken Unknown] hydrocodone-acetaminophen 5-325mg 5mg-325mg 1 tab PO Q6H PRN pain 3 days #12 tabs 05/11/23 [Rx Last Taken Unknown] Allergy/AdvReac Type Severity Reaction Status Date / Time lisinopril Allergy Mild Unknown Verified 05/11/23 06:56 aspartame Allergy Shortness Verified 05/11/23 06:56 of breath shellfish derived Allergy Angioedema Verified 05/11/23 06:56 Sulfa (Sulfonamide Allergy Rash Verified 05/11/23 06:56 Antibiotics) metformin AdvReac Intermediate Nausea Verified 05/11/23 06:56 Haxevht-MDB-DgF Reductase AdvReac Intermediate Diarrhea Verified 05/11/23 06:56 Inhibitor [Ezqxrvr-Izm-Tbw Reductase Inhibitor] Penicillins AdvReac Diarrhea Verified 05/11/23 06:56 Family History Father Heart disease Grandmother Breast cancer Surgical History H/O lithotripsy H/O: hysterectomy History of LAVH History of right oophorectomy History of tonsillectomy Hx of cystoscopy Hx of cystoscopy Hx of LASIK Hx of wisdom tooth extraction S/P laparoscopic assisted vaginal hysterectomy (LAVH) Social History number of children: 2 current occupational status: employed 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 HEENT: No sore throat. No neck pain. No loss of vision. No rhinorrhea. Cardiovascular: No chest pain. No palpitations. No pedal edema. Respiratory: No cough, no shortness of breath. Abdominal: No abdominal pain. No nausea. No vomiting. Genitourinary: No dysuria. No hematuria. Musculoskeletal: No myalgias. Right ankle pain and swelling, especially laterally. Neurologic: No headaches. No dizziness. No lightheadedness. Skin: No rash. No change in color. Psychiatric: No depression. No anxiety. EXAM Physical Exam Narrative Exam Narrative: Afebrile. Vital signs noted. HEENT: Normocephalic. Atraumatic. PERRL, EOMI. Neck soft and supple. No point tenderness or step off. Cardiovascular: Regular rate and rhythm. No murmurs, rubs, or gallops appreciated. Respiratory: No tachypnea. Lungs clear to auscultation bilaterally. Gastrointestinal: Abdomen soft, nontender, with normoactive bowel sounds. No rebound or guarding. Neurological: Awake. Alert. Nonfocal, nonlateralizing. Skin: No rash. Normal color. No pallor. Musculoskeletal: No pedal edema. Positive swelling right lateral malleolus with tenderness, no crepitance. No pain at base of fifth metatarsal. Palpable dorsalis pedis pulse. No palpable Achilles tendon deficit. Dorsiflexion and flexion of right foot intact. No proximal fibular head tenderness. Able to flex and extend at knee. Const Vital Signs: 05/11/23 06:54 Temperature 96.2 F L Temperature Source Temporal Pulse Rate 86 Respiratory Rate 18 Blood Pressure 129/83 H Blood Pressure Mean 98 Pulse Ox 99 Oxygen Delivery Method Room Air MDM MDM MDM Narrative Medical decision making narrative: Patient declined oral analgesics here initially. She was given an ice pack for comfort. X-rays obtained in 3 views and interpreted by myself independently. My interpretation of her x-ray shows a comminuted Doyle B distal fibula fracture without evidence of ankle mortise widening. I reviewed the radiology report which confirms my independent interpretation as mildly displaced oblique fracture of the distal right fibula with surrounding soft tissue swelling, no dislocation. Upon repeat evaluation, patient would like something stronger for analgesia. She was given 1 [place] tablet. I will discuss the patient with podiatry, Dr. Pulido who is on-call. After discussion with Dr. Pulido with podiatry, who has reviewed the x-rays, patient will be placed in orthotic boot but be nonweightbearing. She was given crutches and a prescription for 12 Haywood tablets. She will continue ice and elevation at home. I stressed the importance of nonweightbearing on her right lower extremity. She will follow-up with podiatry within the next week. I feel she can be discharged safely home with follow-up. I do not feel that she requires observation or admission. Disposition is discharged home in stable condition. Radiography Diagnostic Testing: Clinical Impression(s) from Imaging Studies Ankle X-Ray 05/11/23 07:23 IMPRESSION: Mildly displaced oblique fracture of the distal right fibula, with surrounding soft tissue swelling. No dislocation. Electronically Signed: Ashok Valentin MD at 7:42 EDT , Discharge Plan Triage Chief Complaint: Lower Extremity Injury ED Provider: Wilver Marquez Dx/Rx/DC Orders Clinical Impression: Fall down stairs, Fracture of distal end of right fibula Instructions: ED Ankle Fracture, Distal Fibula Prescriptions: New hydrocodone-acetaminophen 5-325 mg tablet 1 tab PO Q6H PRN (Reason: pain) 3 Days Qty: 12 0RF No Action Soliqua 100/33 100 unit-33 mcg/mL insulin pen 40 unit SC QHS cholecalciferol (vitamin D3) 1,000 unit capsule 1,000 unit capsule 1,000 unit PO DAILY gabapentin 100 mg capsule 100 mg PO QHS fenofibrate micronized 130 mg capsule 130 mg PO DAILY Tremfya 100 mg/mL auto-injector 100 mg subcut Q8W Mounjaro 2.5 mg/0.5 mL pen injector 5 mg subcut QWEEK atenolol 100 MG tablet 100 mg PO QHS Label Comments: amlodipine 10 MG tablet 10 mg PO QHS Label Comments: chlordiazepoxide-clidinium 5-2.5 mg capsule 1 cap PO DAILY Vyepti 100 mg/mL solution IV Label Comments: GIVE 1 VIAL EVERY 90 DAYS Rx Instructions: e4opamb venlafaxine [Effexor XR] 75 mg capsule,extended release 24hr 150 mg PO DAILY promethazine 12.5 mg tablet 12.5 mg PO TID PRN (Reason: nausea and vomiting) Qty: 10 0RF Rx Instructions: 3 doses during day; last dose no later than 4 hr before bedtime phenazopyridine [Pyridium] 200 mg tablet 200 mg PO TID PRN (Reason: pain w/ urination) Qty: 10 0RF nitrofurantoin monohyd/m-cryst [nitrofurantoin monohyd/m-cryst] 100 mg capsule 100 mg PO Q12 Qty: 10 0RF Primary Care Provider: Moustapha Bower Referrals: Gilberto Pulido DPM [Med Staff - Active Staff] - 3-5 Days Moustapha Bower DO [Primary Care Provider] - Activity Restrictions/Additional Instructions: Do not bear weight on right lower extremity. Follow-up with podiatry within the next week. Disposition Disposition: Home, Self Care Discharge Date/Time: 05/11/23 09:18
[2023-05-11] MEDS: HYDROcodone Bitartrate/Apap 5/325 Tablet PO (08:30)
== END 2023-05-11 09:18 | disposition home or self-care (01) ==
PROVIDERS: Emergency Provider Emergency Medicine; PCP Family Medicine; Visit Provider Emergency Medicine
DX: S82.831A Other fracture of upper and lower end of right fibula, initial encounter for closed fracture (principal); G47.30 Sleep apnea, unspecified; W10.9XXA Fall (on) (from) unspecified stairs and steps, initial encounter
CPT/HCPCS: 73610; 99284

== ENCOUNTER → 2023-05-31 | Outpatient (CLI) | payer BC, SELFPAY ==
--- NOTE | 2023-05-31 15:31 | SP.MBSS_ITS ---
Modified Barium Swallow Patient Information Study Date: 05/31/23 Study Time: 13:00 Direct Billable Minutes: 120 Total Minutes procedure & reportin Diagnosis: Dysphagia R13.10 Referring Physician: Moustapha Bower Reason for Referral: Objectively assess swallow function, assess risk for aspiration, and determine recommendations for least restrictive diet textures and compensatory strategies to improve safety of swallow. Medical History: Sherine Harris is a 47-year-old female past medical history of hypertension, diab etes, anxiety, BMI greater than 40, IBS, Injury of head and neck, Insulin dependent diabetes mellitus, Kidney stones, Menorrhagia, Metrorrhagia, Shortness of breath on exertion, Statin intolerance, and URI (upper respiratory infection). See ER Physician Documentation for full report. Patient reports having an ulcer in her esophagus as a teen, and a concussion about 10 years ago. Patient referred for swallow evaluation due to episodes of choking, later clarified as coughing on foods. Patient reported foods feel stuck in her throat, and eventually patient will expectorate foods, without tasting any bile in expectorations. Patient reports these episodes occur at least 3-4X/week. Patient reported tough meats such as chicken and hamburger give her the most difficulty. Patient reported she does not have GERD and does not follow with a GI. Patient referred for MBSS to assess presence/risk for aspiration. Current Diet Ordered: Regular Textures/ Thin Liquids Dentition: WNL Mental Status: WNL Respiratory Status: Oxygenating on Room Air Penetration-Aspiration Scale Penetration-Aspiration Scale: OBJECTIVE ASSESSMENT OF SWALLOW FUNCTION (QUANTITATIVE ? PER TRIAL): PENETRATION / ASPIRATION SCALE (CELESTE): 1 = does not enter airway 2 = enters airway/above vocal folds/ejected 3 = enters airway/above vocal folds/not ejected 4 = enters airway/contacts vocal folds/ejected 5 = enters airway/contacts vocal folds/not ejected 6 = enters airway/below vocal folds/ejected 7 = enters airway/below vocal folds/not ejected despite effort 8 = enters airway/below vocal folds/no effort VIDEOFLOROSCOPIC SCALE SCORE (CELESTE): Grade I = aspiration of material that has penetrated into the laryngeal vestibule, intact cough reflex Grade II = aspiration < 10 % of the bolus, intact cough reflex Grade III = aspiration of < 10 % of the bolus, reduced cough reflex or aspiration of > 10 % of the bolus, intact cough reflex Grade IV = aspiration of > 10 % of the bolus, reduced cough reflex Penetration-Aspiration Scale Score Thin Liquid via teaspoon: Result: 1= does not enter airway Thin Liquid via teaspoon Trial 2: Result: 1= does not enter airway Thin Liquid via small cup sip: Result: 1= does not enter airway [place] Thick Liquid via small cup sip: Result: 1= does not enter airway Pudding by tsp w/esophageal screen: Result: 1= does not enter airway Thin Liquid via Sequential Straw Sip w/esophageal screen: Result: 1= does not enter airway 1/4 Cookie: Result: 1= does not enter airway Oral Phase Labial Seal: No Labial Escape Tongue Control During Bolus Hold: Posterior escape of less than half of bolus Bolus Preparation/Mastication: Disorganized chewing/mashing with solid pieces of bolus unchewed Bolus Transport/Lingual Motion: Brisk tongue motion Oral Residue: Trace residue lining oral structures Pharyngeal Phase Initiation of Pharyngeal Swallow: Bolus head at posterior laryngeal surgace of epiglottis Soft Palate Elevation: No bolus between soft palate and pharyngeal wall Laryngeal Elevation: Comp. Superior move thyroid cart w/comp. apprx arytenoid cart-epig pet Anterior Hyoid Excursion: Complete anterior movement Epiglottic Movement: Complete inversion Laryngeal Vestibule Closure at Height of Swallow: Complete; no air/contrast in laryngeal vestibule Pharyngeal Stripping Wave: Present - complete Pharyngoesophageal Segment Opening: Complete distension and complete duration; no obstruction of flow Tongue Base Retraction: Trace column of contrast between tongue base & post. pharyngeal wall Pharyngeal Residue: Trace residue within or on pharyngeal structures Esophageal Phase Esophageal Clearance: Esophageal retention w/ retrograde flow below pharyngoesophageal seg. Treatment Strategies Effects of treatment strategies attemped:: Liquid wash = somewhat effective Diagnosis/Impression Diagnosis: Esophageal Dysphagia (R13.14), Oropharyngeal Function Grossly WNL Impression: The oral phase is grossly WNL with... -Decreased bolus control with <1/2 of the bolus spilling posteriorly to the pyriforms prior to swallow onset observed with pudding trial especially. -Mild oral residue after the swallow. -Brisk AP transport with solid pieces of cookie left unchewed. The pharyngeal phase is grossly WNL with... -Mildly decreased tongue base retraction, resulting in trace residues after the swallow. -No aspiration or penetration observed during study. The esophageal phase is marked by.. -Esophageal retention of pudding in mid esophagus with retrograde flow remaining well below UES, which mostly cleared after thin liquid wash. Recommendations Diet: Regular Textures and Thin Liquids Compensatory Strategies: Small Bites, Small Sips, Slow Rate, Alternate bites/solids and sips/liquids, Sitting upright and Remain sitting upright for 30 minutes after PO intake Recommend Repeat Modified Barium Swallow: No Need for Skilled Speech Therapy Services: No Comment: Skill speech therapy services are not warranted at this time. Recommended patient follow up with GI to help manage esophageal concerns. Educated patient on standard protocols to help manage GERD; sitting upright during meals and after for at least 30 minutes, alternating bites/sips, and eating with a slow rate. Patient receptive to education. Recommended Referrals: GI Consult Education Completed: 1. Described result of evaluation., 2. Pt understands evaluation & agrees with goals and treatment plan. and 5. Patient demonstrates recommended strategies. Status Active ST Patient: Active Contact Information [facility] Speech Therapy:: Rick Greenwood M.A. [employer] Speech-Language Pathologist [facility] [id number] [place] [address] [email or web address]
== END | disposition home or self-care (01) ==
PROVIDERS: PCP Family Medicine; Referring Provider Family Medicine; Visit Provider Family Medicine
DX: R13.10 Dysphagia, unspecified (principal)
CPT/HCPCS: 74230; 92611

== ENCOUNTER 2023-08-20 11:38 | Day surgery (SDC) | payer BC, SELFPAY ==
--- NOTE | 2023-08-18 07:00 | EKG12_ITS ---
Test Reason : PRE OP Blood Pressure : / mmHG Vent. Rate : 066 BPM Atrial Rate : 066 BPM P-R Int : 162 ms QRS Dur : 082 ms QT Int : 404 ms P-R-T Axes : 001 -02 001 degrees QTc Int : 423 ms Normal sinus rhythm Normal ECG Confirmed by TOMER TONEY, JOAN ([id number]), fan mail editor ANKUR VICENTE ([id number]) on 08/24/2023 10:13:55 AM Referred By: Gary Albrecht Confirmed By:SUE JEFF MD
[2023-08-18 07:47] LABS: Hematocrit 37.9 % (37-47); Hemoglobin 11.7 g/dL (12.0-15.0); Mean Corp Hgb Conc 30.9 g/dL (32-36); Mean Corpuscular Hgb 27.7 pg (27.0-32.0); Mean Corpuscular Volume 89.8 fL (81-99); Mean Platelet Vol. 9.4 fl (6.2-12.0); Platelet Count 362 K/mm3 (150-450); RBC Distribution Width CV 13.9 % (11.6-14.6); RBC Distribution Width SD 44.4 fl (35.1-43.9); Red Blood Count 4.22 M/mm3 (4.2-5.4)
[2023-08-18 08:22] LABS: AST(SGOT) 18 U/L (15-37); Alanine Aminotransfer ALT/SGPT 29 U/L (13-56); Albumin, Serum 3.3 g/dL (3.2-5.0); Alkaline Phosphatase 81 U/L (45-117); Anion Gap 5 (5-15); BUN 21 mg/dL (7-18); BUN/Creat Ratio 26.4 RATIO (10-20); Bilirubin, Direct 0.13 mg/dL (0.00-0.30); Calcium,Total 9.2 mg/dL (8.5-10.1); Chloride 103 mmol/L (98-107); EST Glomerular Filtration Rate 81 mL/min (>60); Est Glom Filt Rate - Afr Amer 98 mL/min (>60); Globulin 3.5 g/dL (2.2-4.2); Glucose 223 mg/dL (74-106); Potassium 4.5 mmol/L (3.5-5.1); Protein, Total 6.8 g/dL (6.4-8.2); Sodium Level 137 mmol/L (136-145)
[2023-08-18 09:05] LABS: Prothrombin Time (Protime)PT. 12.8 SECONDS (11.7-14.9)
[2023-08-18 09:06] LABS: Partial Thromboplast Time 26.9 Seconds (24.1-36.2)
[2023-08-20] VITALS (7 sets, daily range): BP systolic 90–125; BP diastolic 58–75; PULSE 64–76; RESP 16–18; TEMP 36.5–36.8; O2SAT 92–99; BMI 36.3
--- NOTE | 2023-08-20 | GALL_PTH ---
PATIENT: DIMA BROOKS LOC: [facility] [place]#:[id number] AGE/SX: 48/F ROOM: RE08/20/[address]: Dr. Gary Albrecht MD : 1975 BED: DIS: 08/20/2023 SPEC #: [id number] RECD: 08/20/23 16:28 STATUS: SAM ELMORE #: [id number] ANA: 08/20/23 00:[address]: Gary Albrecht DEPT: SURGICAL PATHOLOGY RECD BY: Darron Brunner ENTERED: 08/23/23 09:34 SP TYPE: TOBI ACEVEDO DR: Dr. Moustapha Bower DO Tissues: Gallbladder, NOS Procedures: Surgery Specimen Level III HEADER OPERATION: Laparoscopic cholecystectomy PRE-OP DIAGNOSIS: Cholelithiasis TISSUE SUBMITTED: Gallbladder MICROSCOPIC DIAGNOSIS Gallbladder, cholecystectomy: Mild chronic cholecystitis, cholelithiasis and cholesterolosis. A benign pericystic lymph node with reactive changes. GABY:yamilet 08/24/2023 MICROSCOPIC DESCRIPTION Slides are reviewed. GROSS DESCRIPTION Received is one container labeled with the patient's name and designated gallbladder. The specimen consists of a gallbladder measuring 10.0 cm in length and up to 5.0 cm in diameter. The external surface is pink-tristan, smooth and glistening for the most part. Focally it is granular, hemorrhagic and contains cautery artifact. The gallbladder contains green-yellow mucoid bile and multiple mulberry, yellow-orange stones measuring in aggregate 3.0 x 2.5 x 0.5 cm and <0.1 to 0.3 cm in greatest dimension. The mucosa also shows several yellowish streaks consistent with cholesterolosis. The gallbladder wall measures 0.1 cm in thickness. Sales Professional sections from the gallbladder and the cystic duct are submitted in one cassette. / GABY:yamilet 08/23/2023 TC:3 CPT: 28562
[2023-08-20] MEDS: Lactated Ringers 1,000 ML 15 ML IV (12:21)
--- NOTE | 2023-08-20 12:40 | HP.PCM_ITS ---
History and Physical Date of Admission: 08/20/23 Intake Vital Signs 05/11/2306:54 08/12/2309:09 Height 5 ft 2 in 5 ft 2 in Weight: 265 lb BMI 48.4 BP 109/71 Blood Pressure Location Rt brachial Position Sitting Respiration 17 Pulse 74 Pulse Source Monitor Temp 98.3 F Temp Source Oral Pulse Oximetry (%) 98 Oxygen Delivery Method room air Intake Visit Reasons: Gall Bladder Chief Complaint: gall bladder Is patient in pain?: Yes Allergies lisinopril Allergy (Mild, Verified 08/12/23 09:10) Unknownaspartame Allergy (Verified 08/12/23 09:10) Shortness of breathshellfish derived Allergy (Verified 08/12/23 09:10) AngioedemaSulfa (Sulfonamide Antibiotics) Allergy (Verified 08/12/23 09:10) Rashmetformin Adverse Reaction (Intermediate, Verified 08/12/23 09:10) CabrqdQjkqyud-QRB-ReJ Reductase Inhibitor [Cenxuyd-Rmu-Ebx Reductase Inhibitor] Adverse Reaction (Intermediate, Verified 08/12/23 09:10) DiarrheaPenicillins Adverse Reaction (Verified 08/12/23 09:10) Diarrhea Medications amlodipine 10 mg tablet 10 mg PO QHS 04/30/18 [History Confirmed 08/12/23] atenolol 100 mg tablet 100 mg PO QHS 04/30/18 [History Confirmed 08/12/23] cholecalciferol (vitamin D3) 25 mcg (1,000 unit) capsule 1,000 unit PO DAILY 03/13/19 [History Confirmed 03/03/23] gabapentin 100 mg capsule 100 mg PO QHS 03/18/20 [History Confirmed 08/12/23] chlordiazepoxide-clidinium 5 mg-2.5 mg capsule 1 cap PO DAILY 11/14/21 [History Confirmed 03/03/23] insulin glargine 100 unit-lixisenatide 33 mcg/mL subcutaneous pen (Soliqua 100/33) 40 unit subcut QHS 01/06/22 [History Confirmed 08/12/23] guselkumab 100 mg/mL subcutaneous auto-injector (Tremfya) 100 mg subcut Q8W 12/24/22 [History Confirmed 03/03/23] eptinezumab-jjmr 100 mg/mL intravenous solution (Vyepti) mg IV 03/03/23 [History] promethazine 12.5 mg tablet 12.5 mg PO TID PRN nausea and vomiting #10 tabs 03/03/23 [Rx] venlafaxine 75 mg capsule,extended release 24 hr (Effexor XR) 150 mg PO DAILY 03/03/23 [History Confirmed 08/12/23] nitrofurantoin monohydrate/macrocrystals 100 mg capsule 100 mg PO Q12 #10 CAPSULES 04/14/23 [Rx Confirmed 08/12/23] phenazopyridine 200 mg tablet (Pyridium) 200 mg PO TID PRN pain w/ urination #10 tabs 04/14/23 [Rx] hydrocodone-acetaminophen 5-325mg 5mg-325mg 1 tab PO Q6H PRN pain 3 days #12 tabs 05/11/23 [Rx] PFSH Medical History (Updated 08/12/23 @ 14:[address] Gary Albrecht MD) Acute sinusitis, unspecified Adenomyosis Anxiety Anxiety and depression Asthma Back pain Back pain BMI greater than 40 Cardiology follow-up encounter Chest pressure Contact with and (suspected) exposure to other viral communicable diseases Contact with and (suspected) exposure to other viral communicable diseases CPAP (continuous positive airway pressure) dependence Diabetes Dietary restriction Easy bruisability Essential hypertension Fatigue Fibroid, uterine Fibroids Gallstone pancreatitis H/O MTHFR mutation High cholesterol History of echocardiogram History of IBS History of steroid therapy History of stress test Hyperlipemia Hypertension IBS (irritable bowel syndrome) Injury of head and neck Insulin dependent diabetes mellitus Kidney stones Menorrhagia Metrorrhagia Migraine (~06/03/17) Pancreatitis Perimenopausal Shortness of breath Shortness of breath on exertion Sleep apnea Statin intolerance URI (upper respiratory infection) URI (upper respiratory infection) Wears glasses Surgical History H/O lithotripsy H/O: hysterectomy History of LAVH History of right oophorectomy History of tonsillectomy Hx of cystoscopy Hx of cystoscopy Hx of LASIK Hx of wisdom tooth extraction S/P laparoscopic assisted vaginal hysterectomy (LAVH) Family History Father Heart diseaseGrandmother Breast cancer Social History number of children: 2 current occupational status: employed 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 She was recently admitted to an outside hospital with gallstone pancreatitis. She wanted to come back to town to have surgery here. She has not had any issues since being discharged. She had an ultrasound while there that showed cholelithiasis. ROS General General: No weight change, appetite, fatigue, colon cancer, breast cancer or weakness HEENT HEENT: No difficulty swallowing, eye injury, eye surgery, swollen glands or hoarseness Endo Endocrine: Yes diabetes mellitus; No thyroid disease, thyroid cancer, Hair loss, heat intolerance or cold intolerance Skin Skin: No rash or changing moles Musc Musculoskeletal: No back problems, arthritis, rheumatoid arthritis, gout or joint pain Cardio Cardiovascular: Yes high blood pressure; No murmur, pacemaker, heart disease, atrial fibrillation, heart attack, heart stent, palpitations, shortness of breat with exertion or chest pain Psych Psychiatric: Yes anxiety; No depression or hearing voices Resp Respiratory: No shortness of breath, Yes sleep apnea, No cough, No COPD, Yes asthma, No emphysema and No wheezing Gastro Gastrointestinal: Yes abdominal pain, Yes nausea or vomiting, Yes diarrhea, Yes constipation, No blood in stool, Yes acid reflux, No hemorrhoids, No ulcers, Yes gallbladder problem and No black,tarry stools Additional Details: pancreatitis [place] Hematologic: No blood thinners, No blood disorders, No bleeding, No anemia and No blood clots Neuro Neurologic: No system reviewed and no additional complaints, except as documented, No as per HPI, No abnormal gait, No abnormal hearing, No abnormal movements, No abnormal speech, No behavioral changes, No burning sensations, No confusion, No convulsions, No disequilibrium, No dizziness, No localized weakness, No frequent falls, No headache(s), No lack of coordination, No loss of vision, No memory loss, No numbness, No other visual disturbances, No radicular pain, No restless legs, No sensory deficit, No syncope, No tingling, No tremor(s), No weakness and No other Exam Const General: cooperative Orientation: alert and oriented x3 HENMT Head: normal to inspection Neck Neck: normal visual inspection and full ROM Chest Chest palpation & inspection: normal inspection of the chest Resp Effort & Inspection: normal respiratory effort Auscultation: clear to auscultation bilaterally Cardio Rate: regular rate Rhythm: regular rhythm GI Inspection: non-distended Palpation: soft and nontender Skin General: no rashes or lesions noted Neuro General: patient alert and patient oriented x3 Extrem General: full ROM Psych Appearance: grossly normal Mental Status: mental status grossly normal Assessment and Plan Assessment and Plan (1) Cholelithiasis: Status: Acute Qualifiers: Cholelithiasis location: gallbladder Cholecystitis acuity: unspecified acuity Biliary obstruction: without biliary obstruction Plan: The patient has cholelithiasis and had gallstone pancreatitis. I recommend laparoscopic cholecystectomy. I discussed the procedure in detail with the patient. I discussed the risks, benefits, and alternatives of the procedure. I discussed the risks including but not limited to bleeding, infection, injury to surrounding organs such as the liver, bile duct, bowels. I did discuss the possibility of having to convert to an open procedure as well as the possibility that if any injuries occurred this may necessitate further surgery at a tertiary care center. Gary Albrecht MD Pager: [facility] [address] [place] [address], [address] [place] [address] Office: I have examined the patient and the H&P has been reviewed. There are no clinical changes since date of exam.
[2023-08-20 12:44] LABS: Bedside Glucose 138 mg/dL (74-106)
[2023-08-20] MEDS: Clindamycin 900 MG/50 ML BAG 75 MG IV (13:12)
[2023-08-20] MEDS: Bupivacaine 0.25% 30 ML Vial (13:34)
--- NOTE | 2023-08-20 14:00 | OP.PCM_ITS ---
Report of Operation Date of Procedure: 08/20/23 Pre-Operative Diagnosis: History of gallstone pancreatitis Post-Operative Diagnosis: Same Surgery/Procedure Performed:: Laparoscopic cholecystectomy Type of Anesthesia: General/Regional Specimen's removed: Gallbladder Estimated Blood Loss (mL): 5 Description of Procedure: After obtaining informed consent patient was brought back to the operating room. General anesthesia was induced. The abdomen was prepped and draped in usual sterile fashion. A small midline incision was made superior to the umbilicus and deepened to the level of fascia. The fascia was elevated and incised. Next the peritoneum was elevated and incised in the same fashion. Finger sweep was performed and the Fuentes trocar was placed into the abdomen. The balloon was inflated. The abdomen was inflated to 15 mmHg. Next a camera was introduced into the abdomen and the abdomen was inspected. Next under direct visualization three 5-mm ports were placed one subxiphoid and 2 subcostal. Next the gallbladder was elevated and retracted toward the right shoulder. The peritoneum was stripped from the gallbladder. The infundibulum was located and retracted laterally. Next the triangle of Calot was dissected and the cystic duct and cystic artery were identified. Cholangiograms were not performed due to patient's severe shellfish allergy. Three hemolock clips were placed across the cystic duct. The cystic duct was then divided leaving 2 clips on the stump. The cystic artery was clipped and divided in the same fashion. The hook ca utery was then used to take the gallbladder off of the gallbladder bed. Hemostasis was obtained. Gallbladder fossa was irrigated and no active bleeding or bile leakage was noted. Next the camera was introduced in the subxiphoid port. An Endopouch bag was placed through the umbilical port and the gallbladder was placed into it. The gallbladder was then removed through the umbilical incision. The camera was then reinserted through the umbilical port. The gallbladder fossa was inspected once more and noted to be hemostatic with no leaking bile. The abdomen was suctioned dry. The 5 mm ports were removed under direct visualization. The umbilical port was then removed and the air was removed from the abdomen. Next using an 0 Vicryl suture the umbilical fascia was closed in a [id number]-iqaht fashion. The umbilical port site was irrigated local anesthetic was administered to all the incisions. All the incisions were closed with interrupted subcuticular 4-0 Monocryl sutures followed by Steri- Strips and dressings. The patient was awoken and taken to PACU in stable condition. Admit VTE Documentation VTE Mechan Device Prophylaxis: SCD's
--- NOTE | 2023-08-20 14:01 | DCINST_ITS ---
Discharge Instructions Procedure Gallbladder Diet Discharge Diet: Light diet - advance as tolerated Activity Discharge Activity: May Not Drive (for 2-3 days or while taking narcotic pain medications.) and - (Do not drive, work heavy equipment or sign legal documents for 24 hours.) May shower in (days): 1 Lifting Restrictions: 20 lbs for 2 weeks Additional Activity Instructions:: Pain medication may cause nausea. You should typically eat light foods as you take your pain medications. Pain medication may also cause constipation. If this is a problem for you, please discuss with your doctor. Dressing / Incision Call your doctor if your incision/area has: Continuous Slow Oozing, Sudden Increased Bleeding, Increased Pain/ Swelling, Increased Redness and Foul Smelling Discharge Call your doctor if you observe: Fever of 101 or Higher Suture Line Care: Avoid Pulling/Pushing and Avoid Pinching/Bending Remove Dressing in: 2 days Additional Dressing/Incision Instructions:: Leave operative bandaids on for 2 days. When you remove dressing, leave Steri-Strips on until your follow-up appointment, or until the Steri-Strips fall off on their own. Follow Up Care Please Follow Up With: Gary Albrecht MD When: Please call to schedule 2 week follow up appointment. [phone] Test Results: Test results from this visit will be discussed in further detail at your follow- up appointment, if applicable. Discharge Plan Admission Attending Provider: Gary Albrecht Primary Care Provider: Moustapha Bower Discharge Orders/Prescriptions Prescriptions: New acetaminophen 325 mg Tablet 650 mg PO Q4H PRN PRN (Reason: Pain Or Fever) Qty: 0 0RF oxycodone 5 mg Tablet 5 - 10 mg PO Q4H PRN PRN (Reason: Pain Score 4-10/10) 5 Days Qty: 20 0RF No Action Soliqua 100/33 100 unit-33 mcg/mL insulin pen 28 unit SC QHS cholecalciferol (vitamin D3) 1,000 unit capsule 1,000 unit capsule 1,000 unit PO DAILY gabapentin 100 mg capsule 200 mg PO QHS Tremfya 100 mg/mL auto-injector 100 mg subcut Q8W atenolol 100 MG tablet 100 mg PO QHS Patient Comments: amlodipine 10 MG tablet 10 mg PO QHS Patient Comments: chlordiazepoxide-clidinium 5-2.5 mg capsule 1 cap PO QHS Vyepti 100 mg/mL solution 100 mg IV .EVERY 3MO Patient Comments: GIVE 1 VIAL EVERY 90 DAYS Rx Instructions: v1tslex venlafaxine [Effexor XR] 75 mg capsule,extended release 24hr 150 mg PO QHS pantoprazole 40 mg tablet,delayed release (DR/EC) 40 mg PO DAILY insulin lispro [Humalog KwikPen Insulin] 100 unit/mL insulin pen 1 sliding scale dose SUBCUT .TIDAC rizatriptan 10 mg tablet,disintegrating 10 mg PO PRN Patient Comments: TAKE 1 TABLET BY MOUTH NEEDED FOR MIGRAINE. MAY REPEAT IN 2 HOURS IF NEEDED Ubrelvy 100 mg tablet 100 mg PO PRN fluticasone propion-salmeterol [Advair Diskus] 250-50 mcg/dose blister with device 1 inh INHALATION PRN Referrals / Follow Up: Moustapha Bower DO [Primary Care Provider] - Disposition Disposition (needs filled in before D/C Order can be placed): Home, Self Care
[2023-08-20] MEDS: Acetaminophen 325 MG Tablet 650 MG PO (15:18)
[2023-08-20] MEDS: oxyCODONE 5 MG Tablet PO (15:18)
[2023-08-20 15:31] LABS: Bedside Glucose 169 mg/dL (74-106)
== END 2023-08-20 16:27 | disposition home or self-care (01) ==
LOC: SDC 11:43 → AC 11:44
PROVIDERS: Anesthesiology; PCP Family Medicine; Referring Provider Surgery; Visit Provider Surgery
PROC: (CPT 47610; principal; 2023-08-20 13:10)
DX: K80.10 Calculus of gallbladder with chronic cholecystitis without obstruction (principal); Z79.4 Long term (current) use of insulin; E11.9 Type 2 diabetes mellitus without complications; I10 Essential (primary) hypertension; G47.30 Sleep apnea, unspecified; R10.9 Unspecified abdominal pain; F41.9 Anxiety disorder, unspecified; F32.A Depression, unspecified; J45.909 Unspecified asthma, uncomplicated; Z79.899 Other long term (current) drug therapy
CPT/HCPCS: 47562; 00790; 36415; 80048; 80076; 82962; 85027; 85610; 85730; 88304; 93005; J7120; J2405

== ENCOUNTER → 2023-09-25 | Outpatient (CLI) | payer BC, SELFPAY ==
[2023-09-25 09:13] LABS: Absolute Lymphocyte Count 1.53 X10^3/uL (0.83-4.51); Absolute Neutrophil Count 4.7 X10^3/uL (2.0-7.7); Basophil# 0.01 X10^3/uL; Basophil% 0.2 % (0-1); Hematocrit 41.5 % (37-47); Lymphocyte # 1.53 X10^3/ul (0.83-4.51); Lymphocyte % 23.2 % (19-41); Mean Corp Hgb Conc 31.3 g/dL (32-36); Mean Corpuscular Hgb 28.1 pg (27.0-32.0); Mean Corpuscular Volume 89.6 fL (81-99); Mean Platelet Vol. 9.4 fl (6.2-12.0); Monocyte# 0.36 X10^3/uL; Monocyte% 5.5 % (0-10); NRBC Flagged by Analyzer 0 % (0-5); Neutrophil # 4.68 X10^3/uL (2.7-7.7); Neutrophil % 70.8 % (47-70); Platelet Count 217 K/mm3 (150-450); RBC Distribution Width CV 14.3 % (11.6-14.6); RBC Distribution Width SD 46.5 fl (35.1-43.9); Red Blood Count 4.63 M/mm3 (4.2-5.4); White Blood Count 6.6 K/mm3 (4.4-11.0)
[2023-09-25 09:27] LABS: Hemoglobin A1c 6.8 % (3.8-5.6)
[2023-09-25 09:33] LABS: AST(SGOT) 22 U/L (15-37); Alanine Aminotransfer ALT/SGPT 38 U/L (13-56); Albumin, Serum 3.6 g/dL (3.2-5.0); Alkaline Phosphatase 99 U/L (45-117); Anion Gap 5 (5-15); BUN 20 mg/dL (7-18); BUN/Creat Ratio 26.3 RATIO (10-20); Chloride 104 mmol/L (98-107); Cholesterol 244 mg/dL (200); Creatinine, Serum 0.76 mg/dL (0.55-1.02); EST Glomerular Filtration Rate 86 mL/min (>60); Est Glom Filt Rate - Afr Amer 104 mL/min (>60); Globulin 3.5 g/dL (2.2-4.2); Glucose 155 mg/dL (74-106); High Density Lipoprotein 39 mg/dL; Potassium 4.5 mmol/L (3.5-5.1); Protein, Total 7.1 g/dL (6.4-8.2); Sodium Level 138 mmol/L (136-145)
[2023-09-26 07:23] LABS: Triglycerides 350 mg/dL; Very Low Density Lipoprotein 70 mg/dL (5-40)
== END | disposition home or self-care (01) ==
LOC: LAB 08:09
PROVIDERS: PCP Family Medicine; Referring Provider Family Medicine; Visit Provider Family Medicine
DX: E11.65 Type 2 diabetes mellitus with hyperglycemia (principal); D64.9 Anemia, unspecified
CPT/HCPCS: 36415; 80053; 80061; 83036; 85025

== ENCOUNTER → 2023-10-23 | Outpatient (CLI) | payer BC, SELFPAY ==
[2023-10-27 00:06] LABS: Hepatitis B Core Ab Total Negative (Negative); QNTFERON TB Mitogen Value > 10.00 IU/mL (.); QNTFERON TB Nil Value 0 IU/mL (.); QNTFERON TB1+ Ag Value 0 IU/mL (.); QNTFERON TB2+ Ag Value 0 IU/mL (.); QNTIFERON TB Positive Criteria Negative (Negative)
[2023-11-02 00:06] LABS: Pancreatic Elastase, Fecal < 50 (>200)
== END | disposition home or self-care (01) ==
PROVIDERS: PCP Family Medicine
DX: R19.7 Diarrhea, unspecified (principal); L40.59 Other psoriatic arthropathy; L40.0 Psoriasis vulgaris; Z79.899 Other long term (current) drug therapy
CPT/HCPCS: 36415; 82653; 86480; 86704

== ENCOUNTER → 2023-11-13 | Outpatient (CLI) | payer BC, SELFPAY ==
[2023-11-13 08:31] LABS: AST(SGOT) 20 U/L (15-37); Alanine Aminotransfer ALT/SGPT 36 U/L (13-56); Albumin, Serum 3.6 g/dL (3.2-5.0); Alkaline Phosphatase 101 U/L (45-117); Anion Gap 5 (5-15); BUN 17 mg/dL (7-18); BUN/Creat Ratio 21.7 RATIO (10-20); Calcium,Total 9.6 mg/dL (8.5-10.1); Chloride 102 mmol/L (98-107); Cholesterol 260 mg/dL (200); Creatinine, Serum 0.78 mg/dL (0.55-1.02); EST Glomerular Filtration Rate 83 mL/min (>60); Est Glom Filt Rate - Afr Amer 100 mL/min (>60); Globulin 3.7 g/dL (2.2-4.2); Glucose 167 mg/dL (74-106); High Density Lipoprotein 40 mg/dL; Potassium 4.3 mmol/L (3.5-5.1); Protein, Total 7.3 g/dL (6.4-8.2); Sodium Level 137 mmol/L (136-145); Triglycerides 395 mg/dL; Very Low Density Lipoprotein 79 mg/dL (5-40)
== END | disposition home or self-care (01) ==
LOC: LAB 07:12
PROVIDERS: PCP Family Medicine; Referring Provider Family Medicine; Visit Provider Family Medicine
DX: E78.5 Hyperlipidemia, unspecified (principal); I10 Essential (primary) hypertension
CPT/HCPCS: 36415; 80053; 80061

== ENCOUNTER → 2023-12-31 | Outpatient (CLI) | payer BC, SELFPAY ==
--- NOTE | 2023-12-31 16:05 | US_ITS ---
INDICATION: pelvic pain EXAMINATION: Ultrasound US Pelvis Non-OB Complete TECHNIQUE: Transabdominal and transvaginal pelvic ultrasound was performed. Grayscale, spectral waveform, and color flow Doppler evaluation of the adnexa. COMPARISON: 01/14/2022. FINDINGS: UTERUS: Surgically absent. RIGHT OVARY: Surgically absent. LEFT OVARY: 4.9 x 3.7 x 3.8 cm.. Non-enlarged, normal echogenicity. There is a LEFT ovarian cyst measuring 2.9 x 3.1 x 2.7 cm. No abnormal blood flow. FREE FLUID: None. US/Pelvic (Non ) IMPRESSION: 1. Status post hysterectomy and RIGHT oophorectomy. 2. LEFT ovarian cyst measuring 2.9 x 3.1 x 2.7 cm. 3. No solid masses or abnormal blood flow. 4. No free fluid Electronically Signed: Bebo Hopkins MD at 21:15 EST ,
--- OUTSIDE RECORDS SUMMARY | 2023-12-31 18:02 | XMS RPT_ITS | CCD ---
Author Name Unknown Address [id number] [place] [address] Organization [facility] Care Team Providers Care Matchbook Maker Name Role Phone [facility] Attending Unava ilable [facility] Primary Care Unava ilable [facility] Admitting Unava ilable Nathanael Bower A Primary Care Provider [phone] Nathanael Bower DO A Primary Care Provider Solange Jones Unavailable Nathanael Bower A Primary Care Provider SOLANGE JONES Attending Unavailable NATHANAEL BOWER A Referring Unavailable NATHANAEL BOWER A Primary Care Unavailable NATHANAEL BOWER Primary Care Unavailable RAMESH KAM Attending Unavailable RAMESH KAM Attending Unavailable NATHANAEL BOWER Primary Care Unavailable RAMESH KAM Attending Unavailable NATHANAEL BOWER Primary Care Unavailable RAMESH KMA Referring Unavailable TOMASZ ROY Attending Unavailable NATHANAEL BOWER Primary Care Unavailable RAMESH KAM Attending Unavailable NATHANAEL BOWER Primary Care Unavailable NATHANAEL BOWER Primary Care Unavailable RAMESH KAM Attending Unavailable NATHANAEL BOWER A Referring Unavailable TOM PEREZ Attending Unavailable NATHANAEL BOWER A Primary Care Unavailable ANNELNATHANAEL AUGUSTIN A Primary Care Unavailable NATHANAEL BOWER A Referring Unavailable TOM PEREZ Attending Unavailable NATHANAEL BOWER A Primary Care Unavailable NATHANAEL BOWER A Referring Unavailable ROESMARIE GIRALDO Attending Unavailable SITZMANN, YORDY ASHLEY Ojeda Attending Unavailable NATHANAEL BOWER Primary Care Unavailable Allergies Allergy Classification Reported Allergen(s) Allergy Type Date of Onset Reaction(s) Facility (16 sources) Aspartame; Translations: [ASPARTAME] Drug Allergy 8 Shortness of breath [facility] (15 sources) HMG-CoA reductase inhibitor Drug Intolerance 0 [facility] (16 sources) Lisinopril; Translations: [LISINOPRIL] Propensity to adverse reactions 0 [facility] (17 sources) metFORMIN; Translations: [METFORMIN] Drug Allergy 0 Nausea Only, Nausea [facility] (16 sources) Penicillins; Translations: [PENICILLINS] Drug Intolerance 8 Diarrhea [facility] (15 sources) Shellfish Propensity to adverse reactions 0 Swelling [facility] (16 sources) Sulfonamides (Antibiotic) Drug Intolerance 7 Rash [facility] (16 sources) Topiramate; Translations: [TOPIRAMATE] Propensity to adverse reactions 2 [facility] (17 sources) Verapamil; Translations: [VERAPAMIL] Drug Allergy 2 Unknown [facility] (2 sources) Amoxicillin; Translations: [AMOXICILLIN] Drug Allergy 3 Diarrhea [facility] (1 source) Aspartame Drug Allergy 8 Diarrhea, Shortness of breath, Unknown [facility] (2 sources) HMG-CoA reductase inhibitor; Translations: [[id number]-SWT REDUCTASE INHIBITORS] Propensity to adverse reactions 3 Diarrhea, Muscle ache [facility] (1 source) Lisinopril Drug Allergy 3 [facility] (1 source) Penicillins Allergy to substance 8 Diarrhea, Unknown [facility] (2 sources) Shellfish; Translations: [SHELLFISH CONTAINING PRODUCTS] Propensity to adverse reactions 9 Anaphylaxis, Angioedema, Swelling, Unknown [facility] (1 source) topiramate Drug Allergy 2 [facility] (1 source) Sulfonamides (Antibiotic); Translations: [SULFA (SULFONAMIDE ANTIBIOTICS)] Propensity to adverse reactions to drug (disorder) 3 [facility] Medications Current Medications Medication Drug Class(es) Dates Sig (Normalized) Sig (Original) amLODIPine 10 mg oral tablet (16 sources) Dihydropyridine Calcium Channel Karis Start: 06-16-2020 take 1 tablet by mouth in the morning amLODIPine (Norvasc) 10 MG tablet Take 10 mg by mouth in the morning. 0 06/16/2020 Active amylase [id number] unt / lipase 98325 unt / protease [id number] unt delayed release oral capsule (2 sources) Start: 11-25-2023 take 1 capsule by mouth five times daily at mealtime Creon [id number] units capsule delayed-release particles capsule TAKE 1 CAPSULE BY MOUTH UP TO 5 TIMES DAILY WITH MEALS 0 11/25/2023 Active atenolol 100 mg oral tablet (16 sources) beta-Adrenergic Karis Start: 05-20-2020 take 1 tablet by mouth in the morning atenolol (Tenormin) 100 MG tablet Take 100 mg by mouth in the morning. 0 05/20/2020 Active chlordiazePOXIDE hydrochloride 5 mg / clidinium bromide 2.5 mg oral capsule (16 sources) Anticholinergic, Benzodiazepine Start: 07-21-2010 clidinium-chlor diazePOXIDE (Librax) 5-2.5 MG capsule 1 capsule daily. 0 07/21/2010 Active Completed/Discontinued Medications Medication Drug Class(es) Dates Sig (Normalized) Sig (Original) onabotulinumtoxina 200 unt injection (18 sources) Acetylcholine Release Inhibitor Start: 4 End: 4 onabotulinumtoxinA (Botox) injection 200 Units Problems Active Problems Problem Classification Problem Date Documented Date Episodic/Chronic Anxiety disorders (1 source) Anxiety; Translations: [Anxiety disorder, unspecified] Onset: 023 07-01-2023 Chronic Asthma (1 source) Asthma; Translations: [Unspecified asthma, uncomplicated] Onset: 023 07-01-2023 Chronic Blindness and vision defects (1 source) Abnormal vision; Translations: [Unspecified visual disturbance] Onset: 023 07-01-2023 Episodic Calculus of urinary tract (1 source) Kidney stone; Translations: [Calculus of kidney] Onset: 023 07-01-2023 Episodic Coagulation and hemorrhagic disorders (1 source) Easy bruising; Translations: [Spontaneous ecchymoses] Onset: 07-01-2023 Episodic Coronary atherosclerosis and other heart disease (1 source) Coronary arteriosclerosis; Translations: [Atherosclerotic heart disease of burns pai[place] coronary artery without angina pectoris] Onset: 07-01-2023 Chronic Diabetes mellitus without complication (1 source) Diabetes mellitus; Translations: [Type 2 diabetes mellitus without complications] Onset: 07-01-2023 Chronic Disorders of lipid metabolism (1 source) Hyperlipidemia; Translations: [Hyperlipidemia, unspecified] Onset: 07-01-2023 Chronic Esophageal disorders (2 sources) Gastroesophageal reflux disease; Translations: [Gastro-esophageal reflux disease without esophagitis] Onset: 07-12-2023 Chronic Essential hypertension (1 source) Hypertensive disorder; Translations: [Essential (primary) hypertension] Onset: 07-01-2023 Chronic Headache; including migraine (17 sources) Refractory migraine with aura; Translations: [Migraine with aura, intractable, without status migrainosus] Onset: Chronic Malaise and fatigue (1 source) Fatigue; Translations: [Other fatigue] Onset: 07-01-2023 Episodic Mood disorders (1 source) Depressive disorder; Translations: [Depression] Onset: 07-01-2023 Chronic Nausea and vomiting (2 sources) Nausea; Translations: [Nausea] Onset: 07-12-2023 Episodic Other gastrointestinal disorders (1 source) Irritable bowel syndrome; Translations: [Irritable bowel syndrome without diarrhea] Onset: 07-01-2023 Chronic Other gastrointestinal disorders (2 sources) Esophageal dysphagia; Translations: [Other dysphagia] Onset: 07-12-2023 Episodic Other gastrointestinal disorders (1 source) Dysphagia; Translations: [Dysphagia, unspecified] Onset: 07-01-2023 Episodic Other gastrointestinal disorders (1 source) Diarrhea, unspecified; Translations: [Diarrhea, unspecified] Onset: Episodic Other gastrointestinal disorders (1 source) Flatulence; Translations: [Flatulence] Onset: 01-24-2 024 Episodic Other nutritional; endocrine; and metabolic disorders (2 sources) Body mass index 40+ - severely obese; Translations: [Body mass index (BMI) 45.0-49.9, adult] Onset: 07-12-2023 Chronic Other screening for suspected conditions (not mental disorders or infectious disease) (1 source) Patient encounter status; Translations: [Encounter for screening for malignant neoplasm of colon] 07-12-2023 Episodic Residual codes; unclassified (2 sources) Obstructive sleep apnea syndrome; Translations: [Obstructive sleep apnea (adult) (pediatric)] Onset: 07-12-2023 Chronic Residual codes; unclassified (1 source) Heterozygous methylenetetrahydrofolate reductase mutation; Translations: [Genetic susceptibility to other disease] Onset: 07-01-2023 Episodic Residual codes; unclassified (1 source) Insomnia; Translations: [Insomnia, unspecified] Onset: 07-01-2023 Episodic Viral infection (1 source) Viral infection, unspecified; Translations: [Viral infection, unspecified] Onset: Episodic Past or Other Problems Problem Classification Problem Date Documented Da te Episodic/Chronic Mycoses (1 source) Candidal stomatitis; Translations: [Candidal stomatitis] Onset: 08-10-2023 Episodic Results Test Name Value Interpretation Reference Range Facil ity Vital Signs Date Time Vital Sign Value Performing Clinician Hailey nye 12-06-2023 08:50-0500 Body height 157.5 cm Ramesh Kam APRN [employer] Work Phone: [facility] 12-06-2023 08:50-0500 Body mass index (BMI) [Ratio] 48.18 kg/m2 Ramesh Kam MULE DEVELOPER [employer] Work Phone: [facility] 12-06-2023 08:50-0500 Body weight 119.48 kg Ramesh Kam MULE DEVELOPER [employer] Work Phone: [employer] 12-06-2023 08:50-0500 Diastolic blood pressure 76 mm[Hg] Ramesh Kam MULE DEVELOPER [employer] Work Phone: [facility] [email or web address] 12-06-2023 08:50-0500 Heart rate 82 /min Ramesh Kam MULE DEVELOPER - SORT WORKER Work Phone: [facility] [email or web address] 12-06-2023 08:50-0500 Systolic blood pressure 123 mm[Hg] Ramesh Kam MULE DEVELOPER - SORT WORKER Work Phone: [facility] [email or web address] 10-11-2023 13:00-0500 Diastolic blood pressure 83 mm[Hg] Tomasz Roy MD Work Phone: [facility] [email or web address] 10-11-2023 13:00-0500 Heart rate 82 /min Tomasz Roy MD Work Phone: [facility] [email or web address] 10-11-2023 13:00-0500 Respiratory rate 12 /min Tomasz Roy MD Work Phone: [facility] [email or web address] 10-11-2023 13:00-0500 Systolic blood pressure 141 mm[Hg] Tomasz Roy MD Work Phone: [facility] [email or web address] 09-13-2023 10:46-0400 Body height 157.5 cm aRmesh Kam MULE DEVELOPER - SORT WORKER Work Phone: [facility] [email or web address] 09-13-2023 10:46-0400 Body mass index (BMI) [Ratio] 49.53 kg/m2 Ramesh Kam MULE DEVELOPER - SORT WORKER Work Phone: [facility] [email or web address] 09-13-2023 10:46-0400 Body weight 122.83 kg Ramesh Kam MULE DEVELOPER - SORT WORKER Work Phone: [facility] [email or web address] 09-13-2023 10:46-0400 Diastolic blood pressure 79 mm[Hg] Ramesh Kam MULE DEVELOPER - SORT WORKER Work Phone: [facility] [email or web address] 09-13-2023 10:46-0400 Heart rate 83 /min Ramesh Kam MULE DEVELOPER - SORT WORKER Work Phone: [facility] [email or web address] 09-13-2023 10:46-0400 Systolic blood pressure 120 mm[Hg] Ramesh Graylellan MULE DEVELOPER - SORT WORKER Work Phone: [employer] 07-12-2023 09:47-0400 Body height 157.5 cm Solange Jones MULE DEVELOPER-SORT WORKER Work Phone: [employer] [facility] [employer] 07-12-2023 09:47-0400 Body mass index (BMI) [Ratio] 49.02 kg/m2 Solange Jones MULE DEVELOPER-SORT WORKER Work Phone: [employer] 07-12-2023 09:47-0400 Body temperature 98.01 [degF] Solange Jones MULE DEVELOPER-SORT WORKER Work Phone: [employer] 07-12-2023 09:47-0400 Body weight 121.56 kg Solange Jones MULE DEVELOPER-SORT WORKER Work Phone: [facility] [employer] 07-12-2023 09:47-0400 Diastolic blood pressure 80 mm[Hg] Solange Jones MULE DEVELOPER-SORT WORKER Work Phone: [facility] [employer] 07-12-2023 09:47-0400 Heart rate 82 /min Solange Jones MULE DEVELOPER-SORT WORKER Work Phone: [employer] 07-12-2023 09:47-0400 SaO2% (BldA) [Mass fraction] 98 % Solange Jones MULE DEVELOPER-SORT WORKER Work Phone: [employer] 07-12-2023 09:47-0400 Systolic blood pressure 120 mm[Hg] Solange Jones MULE DEVELOPER-SORT WORKER Work Phone: [employer] 03-25-2023 14:25-0400 Body height 157.5 cm Rameshsaúl Kam MULE DEVELOPER - SORT WORKER Work Phone: [email or web address] 03-25-2023 14:25-0400 Body mass index (BMI) [Ratio] 53.55 kg/m2 Rameshsaúl Kam MULE DEVELOPER - SORT WORKER Work Phone: [email or web address] 04-27-2023 14:25-0400 Body weight 132.81 kg Ramesh Tucker MULE DEVELOPER - SORT WORKER Work Phone: [facility] [email or web address] 03-25-2023 14:25-0400 Diastolic blood pressure 61 mm[Hg] Ramesh Tucker MULE DEVELOPER - SORT WORKER Work Phone: [facility] 03-25-2023 14:25-0400 Heart rate 91 /min Ramesh Kam MULE DEVELOPER - SORT WORKER Work Phone: [facility] 03-25-2023 14:25-0400 Systolic blood pressure 138 mm[Hg] Ramesh Kam MULE DEVELOPER - SORT WORKER Work Phone: [facility] Encounters Encounter Date Encounter Type Care Provider Facility Start: 12-22-2023 End: 12-22-2023 ambulatory YORDY NATHANAEL [facility] Start: 12-06-2023 End: 12-06-2023 ambulatory RAMESHSaúl KAM [facility] Start: 12-06-2023 End: 12-06-2023 Patient encounter procedure Ramesh Kam MULE DEVELOPER - SORT WORKER Work Phone: [facility] Procedures Date Procedure Procedure Detail Performing Clinician Start: 02-23-2023 Mammography Ramesh Horner MULE DEVELOPER - SORT WORKER Work Phone: Start: 01-12-2022 Mammography Ramesh Horner MULE DEVELOPER - SORT WORKER Work Phone: Plan of Treatment Date Care Activity Detail Author Start: 2033 RSV Immunization aged 60 or older (1 - 1-dose 60+ series) RSV Immunization aged 60 or older (1 - 1-dose 60+ series) [facility] Start: 02-28-2024 End: 02-28-2024 Patient encounter procedure 02/28/2024 8:30 AM EDT Procedure Visit [facility] [address] [place] [id number] Ramesh Kam APRN - CNP [address] [place] [address] [facility] Start: 02-24-2024 Screening for malignant neoplasm of breast Mammogram [facility] Start: 01-14-2024 End: 01-14-2024 Patient encounter procedure 01/14/2024 2:00 PM EST Procedure Visit [facility] [address] [place] [address] [place] [phone] [facility] Start: 12-06-2023 End: 12-06-2023 Patient encounter procedure 12/06/2023 9:00 AM EST Procedure Visit [facility] [address] [place] [phone] Ramesh Kam APRN - SORT WORKER [address] [place] [address] [facility] Start: 09-27-2023 End: 09-27-2023 Patient encounter procedure 09/27/2023 7:30 AM EDT Procedure Visit [facility] [address] [facility] [address] [place] [address] [place] [phone] [facility] Start: 09-20-2023 End: 09-20-2023 Patient encounter procedure 09/20/2023 11:30 AM EDT Procedure Visit [facility] [address] [place] [phone] Ramesh Kam APRN - SORT WORKER [address] [place] [address] [facility] Start: 09-03-2023 End: 09-03-2023 Patient encounter procedure 09/03/2023 8:50 AM EDT Appointment [facility] [address] [place] [address] Kam Bain MD [address] [facility] [facility] [address] [place] [phone] [facility] Start: 08-17-2023 End: 08-17-2023 Admission to establishment 08/17/2023 7:00 AM EDT Pre-Admission Testing [facility] Pre-Admission Testing [address] [place] [address] [facility] Pre-Admission Testing Start: 2023 Zoster Vaccines (1 of 2) Zoster Vaccines (1 of 2) [facility] Start: 07-30-2023 COVID-19 Vaccine ( season) COVID-19 Vaccine ( season) [facility] Start: 07-30-2023 Influenza vaccination Influenza Vaccine (#1) [facility] Start: 07-12-2023 End: 07-12-2025 Colonoscopy study Colonoscopy Endoscopy Routine Colon cancer screening Expected: 07/12/2023, Expires: 07/12/2025 [facility] Work Phone: Immunizations Immunization Date Immunization Notes Care Provider Fa cili 09-11-2022 influenza virus vaccine, unspecified formulation Solange Pelon MULE DEVELOPER-SORT WORKER Work Phone: [facility] 03-05-2021 Pfizer SARS-CoV-2 Vaccination Ramesh Kam MULE DEVELOPER - SORT WORKER Work Phone: [facility] 02-13-2021 Pfizer SARS-CoV-2 Vaccination Ramesh Kam MULE DEVELOPER - SORT WORKER Work Phone: [facility] Payers Date Payer Category Payer Unknown [id number] 2022 Unknown [id number] 1975 Unknown [id number] [id number] 1975 Unknown [id number] 2.16. [id number] 1975 Unknown [id number] 2.16. [id number] 1975 Unknown [id number] [id number]. [id number] Social History Date Type Detail Facility Start: [facility] Start: 12-31-2022 End: 09-13-2023 Alcohol intake Current drinker of alcohol (finding) [facility] Start: 1975 Sex Assigned At Female [facility] Start: 03-15-2023 End: 03-25-2023 Exposure to SARS-CoV-2 (event) Not sure [facility] Start: 07-01-2023 Tobacco use and exposure Smoke less tobacco non-user [facility] Start: 07-12-2023 End: 10-11-2023 History of Social function [facility] Start: 07-12-2023 End: 10-11-2023 Tobacco use panel [facility] Start: 07-12-2023 Alcohol Comment rarely [facility] Start: 09-18-2022 Gender identity Identifies as female gender (finding) [facility] Start: 07-12-2023 Sexual orientation Heterosexual (fin ding) [facility] Start: 12-06-2023 Alcohol intake Ex-drinker (finding) [facility] Medical Equipment Procedure Code Equipment Code Equipment Original Text Equi pment Identifier Dates 1 each 4 (four) times a day. [id number] Clinical Notes 12-31-2022 to 12-06-2023 Ramesh Kam APRN - SORT WORKER - 12/06/2023 9:00 AM Joy Brock RN - 10/11/2023 12:00 PM ESTTediana Encounter - Abhijit Brock RN - 09/20/2023 9:43 AM EDTPatient InstructionsAttachments Note Date & Type Note Facility 12-06-2023 Note DEPARTMENT OF NEUROL OGY BOTOX PROCEDURE NOTE FOR HEADACHE Date: 12/06/2023 Patient: Rossy Harris : 1975 Diagnosis: Intractable migraine with aura without status migrainosus [G43.119] Procedure: Botulinum toxin injections for migraine Prior to procedure risks, benefits, alternatives, and potential side effects were reviewed with patient. Specifically reviewed possible risk of muscle weakness of face and neck, including but not limited to ptosis. All questions were answered, patient expressed understanding, verbal consent was given for procedure. Botox was injected with the parameters below: With the patient in sitting position, she received Botox injections in the neck and skull muscles. Patient receive the following doses: 1. R Frontalis 10 units 2. L Frontalis 10 units 3. R Playback Operator 10 units 4. L Playback Operator 10 units 5. R Temporalis 30 units 6. L Temporalis 30 units 7. R Occipitalis 30 units 8. L Occipitalis 30 units 9. R Trapezious 20 units 10.L Trapezious 20 units Total units injected 200 units. Units discarded 0 units. Comments: Botox is Buy and Bill [facility] [id number] [x] Pt tolerated procedure well. Pt advised to avoid exercise or strenuous physical activity for 24 hours. Post treatment expectations reviewed in detail. Ramesh Kam APRN - [facility] 12-06-2023 History of Present illness Narrative DEPARTMENT OF NEUROLOGY BOTOX PROCEDURE NOTE FOR HEADACHE Date: 12/06/2023 Patient: Rossy Harris : 1975 Diagnosis: Intractable migraine with aura without status migrainosus [G43.119] Procedure: Botulinum toxin injections for migraine Prior to procedure risks, benefits, alternatives, and potential side effects were reviewed with patient. Specifically reviewed possible risk of muscle weakness of face and neck, including but not limited to ptosis. All questions were answered, patient expressed understanding, verbal consent was given for procedure. Botox was injected with the parameters below: With the patient in sitting position, she received Botox injections in the neck and skull muscles. Patient receive the following doses: 1. R Frontalis 10 units 2. L Frontalis 10 units 3. R Playback Operator 10 units 4. L Playback Operator 10 units 5. R Temporalis 30 units 6. L Temporalis 30 units 7. R Occipitalis 30 units 8. L Occipitalis 30 units 9. R Trapezious 20 units 10.L Trapezious 20 units Total units injected 200 units. Units discarded 0 units. Comments: Botox is Buy and Bill [facility] [phone] [x] Pt tolerated procedure well. Pt advised to avoid exercise or strenuous physical activity for 24 hours. Post treatment expectations reviewed in detail. EVER Singletary CNP documented in this encounter [facility] 10-11-2023 History of Present illness Narrative Patient tolerated infusion well. Discharged home with sister Patient supplied documented in this encounter [facility] 09-20-2023 Telephone encounter Note Rescheduled for 11-3 at 11:30am [facility] 09-20-2023 Miscellaneous Notes Rescheduled for 11-3 at 11:30am Name of Caller: Rossy Contact Reason for Appointment: Pt is asking to reschedule the infusion Office Name: Neuro Medication Refills need, if any: n/a Medication Name: n/a documented in this encounter [facility] 09-20-2023 Telephone encounter Note Name of Caller: Rossy Contact Reason for Appointment: Pt is asking to reschedule the infusion Office Name: Neuro Medication Refills need, if any: n/a Medication Name: n/a [facility] 09-16-2023 Telephone encounter Note Spoke with patient-scheduled for 09-27 at 7:30am [facility] 09-16-2023 Miscellaneous Notes Spoke with patient-scheduled for 09-27 at 7:30am The Vyepti will be supplied by us at [facility] and delivered to the MD office on 09/16/23. VVEPTI IS PATIENT SUPPLIED!!! MG to be Administered: 100mg Medication: Dosing Schedule: Prior Authorization: Approved (prescription benefit) PA reference #:[id number] Approval dates: 08/10/23 - Number of MG Approved: 100. Please call to schedule pt as soon as possible! documented in this encounter [facility] 09-16-2023 Telephone encounter Note The Vyepti will be supplied by us at [facility] and delivered to the MD office on 09/16/23. VVEPTI IS PATIENT SUPPLIED!!! MG to be Administered: 100mg Medication: Dosing Schedule: Prior Authorization: Approved (prescription benefit) PA reference #:[id number] Approval dates: 08/10/23 - Number of MG Approved: 100. Please call to schedule pt as soon as possible! [facility] 09-14-2023 Telephone encounter Note Please see below [facility] 09-14-2023 Miscellaneous Notes Please see below Name of caller: Aurea Contact phone number: [phone] Relationship to Patient: [facility] Provider: Tucker Practice: Neurology Chief Complaint/Reason for Call: Aurea states that Rossy's Vyepti infusion will need prior authorization. Aurea is requesting chart notes, recent MRI results, and an order form for the Vyepti to be faxed to .[phone]. Please advise. Best time of day caller can be reached: Any Patient advised that office/PCP has 24-48 business hours to return their call: No documented in this encounter [facility] 09-14-2023 Telephone encounter Note Name of caller: Aurea Contact phone number: [phone] Relationship to Patient: [facility] Provider: Tucker Practice: Neurology Chief Complaint/Reason for Call: Aurea states that Rossy's Vyepti infusion will need prior authorization. Aurea is requesting chart notes, recent MRI results, and an order form for the Vyepti to be faxed to .[phone]. Please advise. Best time of day caller can be reached: Any Patient advised that office/PCP has 24-48 business hours to return their call: No [facility] 09-13-2023 Note DEPARTMENT OF NEUROL OGY BOTOX PROCEDURE NOTE FOR HEADACHE Date: 09/13/2023 Patient: Rossy Harris : 1975 Diagnosis: Intractable migraine with aura without status migrainosus [G43.119] Procedure: Botulinum toxin injections for migraine Prior to procedure risks, benefits, alternatives, and potential side effects were reviewed with patient. Specifically reviewed possible risk of muscle weakness of face and neck, including but not limited to ptosis. All questions were answered, patient expressed understanding, verbal consent was given for procedure. Botox was injected with the parameters below: With the patient in sitting position, she received Botox injections in the neck and skull muscles. Patient receive the following doses: 1. R Frontalis 10 units 2. L Frontalis 10 units 3. R Playback Operator 10 units 4. L Playback Operator 10 units 5. R Temporalis 30 units 6. L Temporalis 30 units 7. R Occipitalis 30 units 8. L Occipitalis 30 units 9. R Trapezious 20 units 10.L Trapezious 20 units Total units injected 200 units. Units discarded 0 units. Pt reports a 75% reduction in migraines with Vyepti and almost 100% reduction with addition of Botox Comments: Botox is Flaco and David [facility] [id number] [x] Pt tolerated procedure well. Pt advised to avoid exercise or strenuous physical activity for 24 hours. Post treatment expectations reviewed in detail. EVER Singletary CNP [facility] 09-13-2023 History of Present illness Narrative DEPARTMENT OF NEUROLOGY BOTOX PROCEDURE NOTE FOR HEADACHE Date: 09/13/2023 Patient: Rossy Harris : 1975 Diagnosis: Intractable migraine with aura without status migrainosus [G43.119] Procedure: Botulinum toxin injections for migraine Prior to procedure risks, benefits, alternatives, and potential side effects were reviewed with patient. Specifically reviewed possible risk of muscle weakness of face and neck, including but not limited to ptosis. All questions were answered, patient expressed understanding, verbal consent was given for procedure. Botox was injected with the parameters below: With the patient in sitting position, she received Botox injections in the neck and skull muscles. Patient receive the following doses: 1. R Frontalis 10 units 2. L Frontalis 10 units 3. R Playback Operator 10 units 4. L Playback Operator 10 units 5. R Temporalis 30 units 6. L Temporalis 30 units 7. R Occipitalis 30 units 8. L Occipitalis 30 units 9. R Trapezious 20 units 10.L Trapezious 20 units Total units injected 200 units. Units discarded 0 units. Pt reports a 75% reduction in migraines with Vyepti and almost 100% reduction with addition of Botox Comments: Botox is Flaco and David [facility] [phone] [x] Pt tolerated procedure well. Pt advised to avoid exercise or strenuous physical activity for 24 hours. Post treatment expectations reviewed in detail. EVER Singletary CNP documented in this encounter [facility] 08-26-2023 Telephone encounter Note Office has received notification from patient's pharmacy- [facility], patient's medication gabapentin requires a refill. Medication is pending. Please advise. [facility] 08-26-2023 Miscellaneous Notes Office has received notification from patient's pharmacy- [facility], patient's medication gabapentin requires a refill. Medication is pending. Please advise. documented in this encounter [facility] 07-12-2023 History of Present illness Narrative Reason For Visit: Chief Complaint Patient presents with Dysphagia No hx colon/EGD in EMR. Patient reports EGD in 1992 at [facility]. Patient states having trouble swallowing mostly denser foods like meats and breads. Patient states has been ongoing but has started happening more frequently within the last year. Patient also states a few episodes of choking and vomiting due to foods getting stuck. Patient states reflux is pretty controlled with diet and Prilosec. Patient also states constipation and occasional abdominal cramping since starting Mounjaro 11/2022. Referring physician Nathanael Bower DO History Of Present Illness Sherine Harris is a 47 y.o. female who presents for evaluation of dysphagia. (+)Dysphagia, ongoing for 1-2 years. Worsened in the past year. Not daily. 3-4x per week Often feels all foods are stuck in throat after eating. Solids only (ie; chicken)-- has had to vomit food for relief. Hx of choking and vomiting due to food impaction GERD, intermittently, OTC prilosec taken intermittently, or prior to trigger foods. She was on prilosec for years following her EGD. Prior EGD 1992 ([facility])-- per pt hx of ulcer. Nausea, usually after mounjaro. No vomiting. Phenergan PRN effective. Intentional weight loss with mounjaro use, approx 60lbs since first of year. No prior colonoscopy-no fam hx of CRC. Father with UC. Normal BMs prior to starting mounjaro (now with constipation and occasional abd cramping). NO melena/hematochezia. BMs usually 2-3 days. Prior hx of diarrhea, after h/o hysterectomy resolution of symptoms. Awaiting cologuard from PCP. No CP/SOB. DM2 Borderline ESTELLA--has CPAP, does not use No ASA or AC. Past Medical History She has a past medical history of Anxiety, Asthma, CAD (coronary artery disease), Depression, Diabetes mellitus, Dysphagia, Heterozygous for MTHFR gene mutation, Hyperlipidemia, Hypertension, IBS (irritable bowel syndrome), Insomnia, Migraines, Sleep apnea, and Vision abnormalities. Patient Active Problem List Diagnosis Diabetes Coronary artery disease Hypertension Hyperlipidemia Migraines Asthma Fatigue Bruises easily Anxiety Depression IBS (irritable bowel syndrome) Heterozygous for MTHFR gene mutation ESTELLA (obstructive sleep apnea) Insomnia Dysphagia Vision abnormalities Nephrolithiasis Esophageal dysphagia Gastroesophageal reflux disease BMI 45.0-49.9, adult Nausea Surgical History She has a past surgical history that includes Oophorectomy (Right); Renal artery stent (Right, 01/2022); Fibula Fracture Surgery (Right, 04/2023); Hysterectomy (02/2022); Kidney stone surgery (04/2019); Kidney stone surgery (01/2022); and Esophagogastroduodenoscopy (1992). Social History She reports that she has never smoked. She has never used smokeless tobacco. She reports current alcohol use. She reports that she does not use drugs. Family History Family History Problem Relation Name Age of Onset Heart disease Father Ulcerative colitis Father Crohn's disease Daughter Colon cancer Neg Hx Allergies Aspartame, Shellfish containing products, Topiramate, Verapamil, Penicillins, Amoxicillin, Lisinopril, Metformin, Wakaaul-mil-tim reductase inhibitors, and Sulfa (sulfonamide antibiotics) Medications Current Outpatient Medications Medication Instructions amLODIPine (Norvasc) 10 mg tablet oral, Daily atenolol (Tenormin) 100 mg tablet oral, Daily chlordiazepoxide-clidinium (Librax) 5-2.5 mg capsule 1 capsule, oral, 3 times daily with meals cholecalciferol, vitamin D3, (VITAMIN D3 ORAL) oral epinephrine (EPIPEN INJ) injection eptinezumab-jjmr (Vyepti) 100 mg/mL solution 100 mL, intravenous, Every 3 months fenofibrate micronized (ANTARA) 130 mg, oral, Daily with breakfast flash glucose sensor (FREESTYLE SATNAM 14 DAY [facility]) miscellaneous fluticasone propion-salmeteroL (Advair Diskus) 250-50 mcg/dose diskus inhaler 1 puff, inhalation, 2 times daily RT, Rinse mouth with water after use to reduce aftertaste and incidence of candidiasis. Do not swallow. FreeStyle Satnam System (FreeStyle Satnam 14 Day [place]) kit 1 each, miscellaneous, 3 times daily, Use as instructed gabapentin (NEURONTIN) 100 mg, oral, 3 times daily insulin glargine (LANTUS SOLOSTAR U-100 INSULIN) 30 Units, subcutaneous, Nightly LORazepam (ATIVAN) 0.5 mg, oral, Every 6 hours PRN lovastatin (MEVACOR) 10 mg, oral, Nightly Mounjaro 10 mg, subcutaneous, Weekly onabotulinumtoxinA (BOTOX INJ) 1 Injection, injection, Every 3 months pantoprazole (PROTONIX) 40 mg, oral, Daily before breakfast, Do not crush, chew, or split. pen needle, diabetic (BD Ultra-Fine Short Pen Needle) 31 gauge x 5/16 needle 1 each, miscellaneous, 4 times daily polyethylene glycol (MIRALAX) 238 g, oral, Once, Take as directed per prep instructions. polyethylene glycol (MIRALAX) 17 g, oral, Daily promethazine (PHENERGAN) 25 mg, oral, Every 6 hours PRN rizatriptan TILE SETTER (MAXALT-TILE SETTER) 5 mg, oral, Once as needed, May repeat in 2 hours if unresolved. Do not exceed 30 mg in 24 hours. Tremfya 100 mg, subcutaneous, Every 8 weeks ubrogepant (Ubrelvy) 100 mg tablet oral venlafaxine XR (EFFEXOR XR) 150 mg, oral, Daily, Do not crush or chew. Review of Systems *See HPI re: detailed ROS complaints Review of Systems Constitutional: Negative for chills, diaphoresis, fever and unexpected weight change. HENT: Positive for trouble swallowing. Respiratory: Positive for choking. Negative for cough, shortness of breath and wheezing. Cardiovascular: Negative for chest pain. Gastrointestinal: Positive for abdominal pain, constipation (Having a BM every 2-3 days, and not much coming out. Then will have 1 day of a normal and complete release. ) and vomiting. Negative for anal bleeding (Hematochezia), blood in stool (Melena), diarrhea and nausea. Skin: Negative for rash. Neurological: Negative for tremors, seizures and weakness. Physical Exam Vitals and nursing note reviewed. Constitutional: Patient is not in acute distress. Appearance: Normal appearance. HENT: Head: Normocephalic and atraumatic. Nose: Nose normal. Mouth/Throat: Mouth: Mucous membranes are moist. Eyes: Conjunctiva/sclera: Conjunctivae normal. Cardiovascular: Rate and Rhythm: Normal rate and regular rhythm. Pulmonary: Effort: Pulmonary effort is normal. No respiratory distress. Breath sounds: Normal breath sounds. Abdominal: Abdomen is obese. Bowel sounds are normal. There is no distension. Abdomen is soft. There is no mass. There is no abdominal tenderness. There is no guarding or rebound. Musculoskeletal: General: Normal range of motion. Cane. Skin: General: Skin is warm and dry. Neurological: Mental Status: Patient is alert and oriented to person, place, and time. Vitals Signs Blood pressure 120/80, pulse 82, temperature 36.7 C (98 F), temperature source Temporal, height 5' 2 (1.575 m), weight 122 kg (268 lb), SpO2 98 %. Body mass index is 49.02 kg/m . Relevant Results No results found for: WBC, HGB, HCT, MCV, PLT No results found for: GLU, CALCIUM, NA, K, CO2, CL, BUN, CREATININE, EGFR No results found for: ALT, AST, GGT, ALKPHOS, BILITOT Chemistry No results found for: NA, K, CL, CO2, BUN, CREATININE, GLU No results found for: CALCIUM, ALKPHOS, AST, ALT, BILITOT EGD years ago, unknown time frame, Unable to locate/review during time of exam No prior colonoscopy- no FHCRC/father with UC MBS 05/31/23; esophageal dysphagia, oropharyngeal function grossly within normal limits. See media tab Assessment/Plan 1. Esophageal dysphagia 2. Gastroesophageal reflux disease, unspecified whether esophagitis present 3. Nausea 4. BMI 45.0-49.9, adult 5. ESTELLA (obstructive sleep apnea) 6. Colon cancer screening PLAN EGD/Colon w/ MAC at [facility], next avail +PAT Initiate protonix 40mg once daily dosing Attempt to get labs from PCP within last 3-6 months for epic chart update (Extended prep) -- 7 day low residue diet -- 3 day miralax once daily (#3samples) -- Miralax split prep Caregrams (as applicable) provided with AVS Additional testing ordered (as above), further recommendations to follow Continue follow-up with PCP Procedure followup Comment: Please note this report has been produced using speech recognition software and may contain errors related to that system including errors in grammar, punctuation, and spelling, as well as words and phrases that may be inappropriate. If there are any questions or concerns please feel free to contact the dictating provider for clarification. AVS printed and reviewed with patient. Colon /EGD scheduled for 09/03/[address] Bain. Miralax split colon prep info sheet given to patient and explained. Appointment letter printed and provided to pt. Low Fiber / EGD /Colon care grams printed and explained to patient. Patient verbalizes understanding. All questions answered at this time. PAT notified. documented in this encounter [facility] 07-12-2023 Instructions YANNA Benson - 07/12/2023 10:00 AM EDT EGD/Colon w/ MAC at [facility], next avail +PAT Initiate protonix 40mg once daily dosing Attempt to get labs from PCP within last 3-6 months for epic chart update (Extended prep) -- 7 day low residue diet -- 3 day miralax once daily (#3samples) -- Miralax split prep Caregrams (as applicable) provided with AVS Additional testing ordered (as above), further recommendations to follow Continue follow-up with PCP Procedure followup The following attachments cannot be sent through Care Everywhere.CARE GRAM - 0523 - ESOPHAGOGASTRODUODENOSCOPY (EGD)CARE GRAM - 0522 - COLONOSCOPYCARE GRAM - 0959 - HOW TO PREPARE FOR A COLONOSCOPY (ONE DAY MIRALAX SPLIT PREP)CARE GRAM - 1390 - LOW-FIBER/LOW-RESIDUE DIETdocumented in this encounter [facility] 07-12-2023 Miscellaneous Notes Addended by: GWEN YEE on: 07/12/2023 11:00 AM Modules accepted: Orders documented in this encounter [facility] 07-12-2023 Note Addended by: GWEN YEE on: 07/12/2023 11:00 AM Modules accepted: Orders [facility] 06-18-2023 Note DEPARTMENT OF NEUROL OGY BOTOX PROCEDURE NOTE FOR HEADACHE Date: 06/18/2023 Patient: Rossy Harris : 1975 Diagnosis: Intractable migraine with aura without status migrainosus [G43.119] Procedure: Botulinum toxin injections for migraine Prior to procedure risks, benefits, alternatives, and potential side effects were reviewed with patient. Specifically reviewed possible risk of muscle weakness of face and neck, including but not limited to ptosis. All questions were answered, patient expressed understanding, verbal consent was given for procedure. Botox was injected with the parameters below: With the patient in sitting position, she received Botox injections in the neck and skull muscles. Patient receive the following doses: 1. R Frontalis 10 units 2. L Frontalis 10 units 3. R Playback Operator 10 units 4. L Playback Operator 10 units 5. R Temporalis 30 units 6. L Temporalis 30 units 7. R Occipitalis 30 units 8. L Occipitalis 30 units 9. R Trapezious 20 units 10.L Trapezious 20 units Total units injected 200 units. Units discarded 0 units. She reports 75-80% reduction in migraines with Botox Comments: Botox is Buy and Bill [facility] [phone] [x] Pt tolerated procedure well. Pt advised to avoid exercise or strenuous physical activity for 24 hours. Post treatment expectations reviewed in detail. Ramesh Kam APRN - [facility] 04-27-2023 Note DEPARTMENT OF NEUROL OGY BOTOX PROCEDURE NOTE FOR HEADACHE Date: 03/25/2023 Patient: Rossy Harris : 1975 Diagnosis: Intractable migraine with aura without status migrainosus [G43.119] Procedure: Botulinum toxin injections for migraine Prior to procedure risks, benefits, alternatives, and potential side effects were reviewed with patient. Specifically reviewed possible risk of muscle weakness of face and neck, including but not limited to ptosis. All questions were answered, patient expressed understanding, verbal consent was given for procedure. Botox was injected with the parameters below: With the patient in sitting position, she received Botox injections in the neck and skull muscles. Patient receive the following doses: 1. R Frontalis 10 units 2. L Frontalis 10 units 3. R Playback Operator 10 units 4. L Playback Operator 10 units 5. R Temporalis 30 units 6. L Temporalis 30 units 7. R Occipitalis 30 units 8. L Occipitalis 30 units 9. R Trapezious 20 units 10.L Trapezious 20 units Total units injected 200 units. Units discarded 0 units. She reports 80% reduction in her migraines with use of Botox. She is unsure if Vyepti infusions are helping. We did discuss possibly extending infusions times to determine effectiveness. She receives Vyepti at [facility] Comments: Botox is Buy and Bill [facility] [phone] [x] Pt tolerated procedure well. Pt advised to avoid exercise or strenuous physical activity for 24 hours. Post treatment expectations reviewed in detail. Ramesh Kam, EVER - PABLO [facility] 03-25-2023 History of Present illness Narrative DEPARTMENT OF NEUROLOGY BOTOX PROCEDURE NOTE FOR HEADACHE Date: 03/25/2023 Patient: Rossy Harris : 1975 Diagnosis: Intractable migraine with aura without status migrainosus [G43.119] Procedure: Botulinum toxin injections for migraine Prior to procedure risks, benefits, alternatives, and potential side effects were reviewed with patient. Specifically reviewed possible risk of muscle weakness of face and neck, including but not limited to ptosis. All questions were answered, patient expressed understanding, verbal consent was given for procedure. Botox was injected with the parameters below: With the patient in sitting position, she received Botox injections in the neck and skull muscles. Patient receive the following doses: 1. R Frontalis 10 units 2. L Frontalis 10 units 3. R Playback Operator 10 units 4. L Playback Operator 10 units 5. R Temporalis 30 units 6. L Temporalis 30 units 7. R Occipitalis 30 units 8. L Occipitalis 30 units 9. R Trapezious 20 units 10.L Trapezious 20 units Total units injected 200 units. Units discarded 0 units. She reports 80% reduction in her migraines with use of Botox. She is unsure if Vyepti infusions are helping. We did discuss possibly extending infusions times to determine effectiveness. She receives Vyepti at [facility] Comments: Botox is Buy and Bill [facility] [phone] [x] Pt tolerated procedure well. Pt advised to avoid exercise or strenuous physical activity for 24 hours. Post treatment expectations reviewed in detail. EVER Singletary CNP documented in this encounter [facility] 03-04-2023 Telephone encounter Note Thank you Dr. Bruce! I appreciate your guidance. We will ensure the Ubrelvy 100 mg is delivered to patient as scheduled. Thank you! [facility] 03-04-[address] you Dr. Bruce! I appreciate your guidance. We will ensure the Ubrelvy 100 mg is delivered to patient as scheduled. Thank you! Geeta, your concern is correct, but this is a patient who tolerates high doses of meds in general, so we'll keep her on the Ubrelvy 100. Good afternoon! Patient requested Ubrelvy 100 mg refill. When we were discussing the medication, noted she is also taking amlodipine. Ubrelvy and amlodipine have a category D interaction due to risk of increasing Ubrelvy concentration and so Ubrelvy dose often limited to 50 mg per dose. Patient says she has been on Ubrelvy 100 mg ~ one year. She denies concerns of side effects including no drowsiness, nausea, or dry mouth. She says she often needs to take repeat doses of Ubrelvy 100 mg in order to treat her migraines. She says if dose has to be reduced then she does not think Ubrelvy 50 mg dose will be effective. I wanted to make you aware and assess if you think it is appropriate for her to continue current dose of Ubrelvy 100 mg since she seems to be tolerating it well. If there are safety concerns and dose decrease necessary then patient likely will not want to continue medication. It looks like she already failed Nurtec. Please advise how you think best to proceed and we are happy to assist! Thank you for your time! documented in this encounter [facility] 03-03-2023 Telephone encounter Note Geeta, your concern is correct, but this is a patient who tolerates high doses of meds in general, so we'll keep her on the Ubrelvy 100. [facility] 03-03-2023 Miscellaneous Notes Geeta, your concern is correct, but this is a patient who tolerates high doses of meds in general, so we'll keep her on the Ubrelvy 100. Good afternoon! Patient requested Ubrelvy 100 mg refill. When we were discussing the medication, noted she is also taking amlodipine. Ubrelvy and amlodipine have a category D interaction due to risk of increasing Ubrelvy concentration and so Ubrelvy dose often limited to 50 mg per dose. Patient says she has been on Ubrelvy 100 mg ~ one year. She denies concerns of side effects including no drowsiness, nausea, or dry mouth. She says she often needs to take repeat doses of Ubrelvy 100 mg in order to treat her migraines. She says if dose has to be reduced then she does not think Ubrelvy 50 mg dose will be effective. I wanted to make you aware and assess if you think it is appropriate for her to continue current dose of Ubrelvy 100 mg since she seems to be tolerating it well. If there are safety concerns and dose decrease necessary then patient likely will not want to continue medication. It looks like she already failed Nurtec. Please advise how you think best to proceed and we are happy to assist! Thank you for your time! documented in this encounter [facility] [employer] [email or web address] 03-03-2023 Telephone encounter Note Good afternoon! Patient requested Ubrelvy 100 mg refill. When we were discussing the medication, noted she is also taking amlodipine. Ubrelvy and amlodipine have a category D interaction due to risk of increasing Ubrelvy concentration and so Ubrelvy dose often limited to 50 mg per dose. Patient says she has been on Ubrelvy 100 mg ~ one year. She denies concerns of side effects including no drowsiness, nausea, or dry mouth. She says she often needs to take repeat doses of Ubrelvy 100 mg in order to treat her migraines. She says if dose has to be reduced then she does not think Ubrelvy 50 mg dose will be effective. I wanted to make you aware and assess if you think it is appropriate for her to continue current dose of Ubrelvy 100 mg since she seems to be tolerating it well. If there are safety concerns and dose decrease necessary then patient likely will not want to continue medication. It looks like she already failed Nurtec. Please advise how you think best to proceed and we are happy to assist! Thank you for your time! [email or web address] 03-02-2023 Telephone encounter Note Prednisone titration sent [facility] 03-02-2023 Miscellaneous Notes Prednisone titration sent documented in this encounter [facility] 12-31-2022 Note DEPARTMENT OF NEUROL OGY BOTOX PROCEDURE NOTE FOR HEADACHE Date: 12/31/22 Patient: Rossy Harris : 1975 Diagnosis: Intractable migraine with aura without status migrainosus [G43.119] Procedure: Botulinum toxin injections for migraine Prior to procedure risks, benefits, alternatives, and potential side effects were reviewed with patient. Specifically reviewed possible risk of muscle weakness of face and neck, including but not limited to ptosis. All questions were answered, patient expressed understanding, verbal consent was given for procedure. Botox was injected with the parameters below: With the patient in sitting position, she received Botox injections in the neck and skull muscles. Patient receive the following doses: 1. R Frontalis 10 units 2. L Frontalis 10 units 3. R Playback Operator 10 units 4. L Playback Operator 10 units 5. R Temporalis 30 units 6. L Temporalis 30 units 7. R Occipitalis 30 units 8. L Occipitalis 30 units 9. R Trapezious 20 units 10.L Trapezious 20 units Total units injected 200 units. Units discarded 0 units. Comments: Botox is Buy and Bill [facility] [phone] [x] Pt tolerated procedure well. Pt advised to avoid exercise or strenuous physical activity for 24 hours. Post treatment expectations reviewed in detail. EVER Ackerman CNP [facility] Diagnosis Esophageal dysphagia- Primary Dysphagia, pharyngoesophageal phase Gastroesophageal reflux disease, unspecified whether esophagitis present Nausea Nausea alone BMI 45.0-49.9, adult ESTELLA (obstructive sleep apnea) Obstructive sleep apnea (adult) (pediatric) Colon cancer screening Special screening for malignant neoplasms, colon [facility] Diagnosis Intractable migraine with aura without status migrainosus- Primary [facility] Diagnosis Intractable chronic migraine without aura and with status migrainosus documented [facility] encounter [facility]* Diagnosis Intractable migraine with aura without status migrainosus- Primary documented in this encounter [facility] Summary Purpose Family History No Family History Records FoundNo Family History Records FoundNo Family History Records FoundNo Family History Records Found Advance Directives No Advanced Directives Records FoundNo Advanced Directives Records FoundNo Advanced Directives Records FoundNo Advanced Directives Records Found Reason for Referral Specialty Diagnoses / Procedures Referred By Contac t Referred To Contact Diagnoses Intractable migraine with aura without status migrainosus Ramesh Kam, EVER - SORT WORKER [address] [place] [address] Referral ID Status Reason Start Date Expiration Date V isits Requested Visits Authorized [id number] Pending Review 03/25/2023 09/21/2023 1 1 Specialty Diagnoses / Procedures Referred By Contac t Referred To Contact Gastroenterology Diagnoses Esophageal dysphagia Gastroesophageal reflux disease, unspecified whether esophagitis present Nausea Procedures EGD Solange Jones MULE DEVELOPER-SORT WORKER [address] [facility] [address] [place] [address] Referral ID Status Reason Start Date Expiration Date V isits Requested Visits Authorized [id number] Pending Review 07/12/2023 07/12/2025 1 1 Specialty Diagnoses / Procedures Referred By Contac t Referred To Contact Gastroenterology Diagnoses Colon cancer screening Procedures Colonoscopy Solange Jones MULE DEVELOPER-SORT WORKER [address] [facility] [address] [place] [address] Referral ID Status Reason Start Date Expiration Date V isits Requested Visits Authorized [id number] Pending Review 07/12/2023 07/12/2025 1 1 Referral ID Status Reason Start Date Expiration Date V isits Requested Visits Authorized [id number] Pending Review 09/13/2023 03/11/2024 1 1 Referral ID Status Reason Start Date Expiration Date V isits Requested Visits Authorized [id number] Pending Review 12/06/2023 11/30/2024 1 1 Additional Source Comments INFORMATION SOURCE (unrecogn ized section and content) DATE CREATED AUTHOR AUTHOR'S ORGANIZ ATION 11/03/2023 [facility] DATE CREATED AUTHOR AUTHOR'S ORGANIZ ATION 12/06/2023 [facility] DATE CREATED AUTHOR AUTHOR'S ORGANIZ ATION 12/23/2023 [facility] Care Teams (unrecognized sec tion and content) Matchbook Maker Relationship Specialty Start Date End Date Nathanael Bower [address] [phone] PCP - General 06/03/20 Matchbook Maker Relationship Specialty Start Date End Date Nathanael Bower [address] [place] [phone] PCP - General 06/03/20 Matchbook Maker Relationship Specialty Start Date End Date Nathanael Bower [address] Harj[place] Marin[place] [phone] PCP - General 06/03/20 Matchbook Maker Relationship Specialty Start Date End Date Nathanael Bower [address] [place] [phone] PCP - General 06/03/20 Matchbook Maker Relationship Specialty Start Date End Date Nathanael BowerDO [address] [place] [address] [place] [address] PCP - General Family Medicine 07/12/23 Solange Jones, MULE DEVELOPER-SORT WORKER [address] [place] [phone] Nurse Practitioner Gastroenterology 07/12/23 Matchbook Maker Relationship Specialty Start Date End Date Nathanael Bower [address] [place] [phone] PCP - General 06/03/20 Matchbook Maker Relationship Specialty Start Date End Date Nathanael Bower [address] [place] [address] PCP - General 06/03/20 Matchbook Maker Relationship Specialty Start Date End Date Nathanael Bower [address] [place] [place] [phone] PCP - General 06/03/20 Matchbook Maker Relationship Specialty Start Date End Date Nathanael Bower [address] [place] [phone] PCP - General 06/03/20 Matchbook Maker Relationship Specialty Start Date End Date Nathanael Bower [address] [place] [place] [phone] PCP - General 06/03/20 Reason for Visit (unrecogniz ed section and content) Specialty Diagnoses / Procedures Referred By Bryn t Referred To Contact Diagnoses Intractable migraine with aura without status migrainosus Ramesh Kam, MULE DEVELOPER - SORT WORKER [address] [place] [address] Referral ID Status Reason Start Date Expiration Date V isits Requested Visits Authorized [id number] Pending Review 12/06/2023 11/30/2024 1 1 Reason Comments Procedure Botulinum Toxin Injection Referral ID Status Reason Start Date Expiration Date V isits Requested Visits Authorized [id number] Pending Review 09/13/2023 03/11/2024 1 1 Reason Onset Date Comments Medication Problem 03/03/2023 Ubrelvy Reason Comments Botulinum Toxin Injection Referral ID Status Reason Start Date Expiration Date V isits Requested Visits Authorized [id number] Pending Review 03/25/2023 09/21/2023 1 1 Reason Comments Med Refill Reason Comments Dysphagia No hx colon/EGD in [facility] [place]. Patient reports EGD in 1992 at [facility]. Patient states having trouble swallowing mostly denser foods like meats and breads. Patient states has been ongoing but has started happening more frequently within the last year. Patient also states a few episodes of choking and vomiting due to foods getting stuck. Patient states reflux is pretty controlled with diet and Prilosec. Patient also states constipation and occasional abdominal cramping since starting Mounjaro 11/2022. Specialty Diagnoses / Procedures Referred By Bryn miranda Referred To Contact Gastroenterology Diagnoses Other dysphagia Nathanael Bower, [address] [place] [address] [place] [address] Gastroenterology - [facility] [address] [place] [phone] Referral ID Status Reason Start Date Expiration Date V isits Requested Visits Authorized [id number] Closed Specialty Services Required 07/01/2023 07/01/2025 1 1 Reason Onset Date Comments Med Refill 08/26/2023 Gabapentin Reason Onset Date Comments Med Management 09/16/2023 Vyepti infusion - [facility] Reason Comments Procedure Vypeti infusion Specialty Diagnoses / Procedures Referred By Bryn miranda Referred To Contact Diagnoses Intractable chronic migraine without aura and with status migrainosus Ramesh Kam, MULE DEVELOPER - SORT WORKER [address] [place] [address] [facility] [address] [facility] [place] [address] [place] [address] Referral ID Status Reason Start Date Expiration Date V isits Requested Visits Authorized [id number] Pending Review 09/16/2023 03/14/2024 1 1 Reason Onset Date Comments Appointment 09/20/2023 Reason Onset Date Comments Forms/questionnaires 09/14/2023 Clinical No juli FOR RECORDS PERTAINING TO PATIENTS WHO ARE OR HAVE BEEN ENROLLED IN A CHEMICAL DEPENDENCY/SUBSTANCEABUSE PROGRAM, SOME INFORMATION MAY BE OMITTED. This clinical summary was aggregated from multiple sources. Caution should be exercised in using it in the provision of clinical care. This summary normalizes information from multiple sources, and as a consequence, information in this document may materially change the coding, format and clinical context of patient data. In addition, data may be omitted in some cases. CLINICAL DECISIONS SHOULD BE BASED ON THE PRIMARY CLINICAL RECORDS. [facility]. provides no warranty or guarantee of the accuracy or completeness of information in this document.
== END | disposition home or self-care (01) ==
LOC: US 15:59
PROVIDERS: PCP Family Medicine; Referring Provider Obstetrics & Gynecology; Visit Provider Obstetrics & Gynecology
DX: R10.2 Pelvic and perineal pain (principal)
CPT/HCPCS: 76856

== ENCOUNTER → 2024-01-14 | Outpatient (CLI) | payer BC, SELFPAY ==
[2024-01-14 18:07] LABS: Anion Gap 5 (5-15); BUN 20 mg/dL (7-18); BUN/Creat Ratio 24.4 RATIO (10-20); Calcium,Total 9.2 mg/dL (8.5-10.1); Chloride 105 mmol/L (98-107); Creatinine, Serum 0.82 mg/dL (0.55-1.02); EST Glomerular Filtration Rate 79 mL/min (>60); Est Glom Filt Rate - Afr Amer 95 mL/min (>60); Glucose 181 mg/dL (74-106); Potassium 4.3 mmol/L (3.5-5.1); Sodium Level 136 mmol/L (136-145)
== END | disposition home or self-care (01) ==
LOC: BFHLAB 14:20
PROVIDERS: PCP Family Medicine; Visit Provider Family Medicine
DX: R42 Dizziness and giddiness (principal)
CPT/HCPCS: 36415; 80048

== ENCOUNTER 2024-02-21 06:46 | Day surgery (SDC) | payer BC, SELFPAY ==
[2024-02-21 06:59] VITALS: BP 131/94; PULSE 102; RESP 16; TEMP 36.3; O2SAT 100; BMI 45.6
[2024-02-21] MEDS: Lactated Ringers 1,000 ML 15 ML IV (07:10)
[2024-02-21 07:30] LABS: Bedside Glucose 177 mg/dL (74-106)
--- NOTE | 2024-02-21 08:11 | PCM.HP.STD ---
[facility] - General General Date of Admission: 02/21/24 Date of Service: 02/21/24 Chief Complaint: Screening colonoscopy HPI Narrative DIMA BROOKS, is a 48 F who presents today for screening colonoscopy. She has a past medical history of hypertension, obesity, cholelithiasis status postcholecystectomy. She also has a history of hyperlipidemia. She does not have any abdominal pain. Is not been cramping. She now any chest pain or shortness of breath. Overall she is in very good health. [facility] Medical History (Updated 02/16/24 @ 14:19 by Fiordaliza Brown) Acute sinusitis, unspecified Adenomyosis Alcohol use Anxiety Asthma Back pain Back pain BMI greater than 40 Cardiology follow-up encounter Chest pressure Contact with and (suspected) exposure to other viral communicable diseases Contact with and (suspected) exposure to other viral communicable diseases CPAP (continuous positive airway pressure) dependence Diabetes Dietary restriction Easy bruisability Easy bruising Essential hypertension Fatty liver Fibroid, uterine Fibroids Gallstone pancreatitis H/O MTHFR mutation High cholesterol History of echocardiogram History of IBS History of stress test Hyperlipemia Hypertension IBS (irritable bowel syndrome) Injury of head and neck Insulin dependent diabetes mellitus Loss of consciousness Migraine (~06/03/17) Non-smoker Pancreatitis Shortness of breath Statin intolerance URI (upper respiratory infection) URI (upper respiratory infection) Wears glasses Home Medications amlodipine 10 mg tablet 10 mg PO QHS 04/30/18 [History Last Taken Unknown] atenolol 100 mg tablet 100 mg PO QHS 04/30/18 [History Last Taken Unknown] cholecalciferol (vitamin D3) 25 mcg (1,000 unit) capsule 1,000 unit PO DAILY 03/13/19 [History Last Taken Unknown] gabapentin 100 mg capsule 200 mg PO QHS 03/18/20 [History Last Taken Unknown] chlordiazepoxide-clidinium 5 mg-2.5 mg capsule 1 cap PO QHS 11/14/21 [History Last Taken Unknown] guselkumab 100 mg/mL subcutaneous auto-injector (Tremfya) 100 mg subcut Q8W 12/24/22 [History Last Taken Unknown] eptinezumab-jjmr 100 mg/mL intravenous solution (Vyepti) 100 mg IV .EVERY 3MO 03/03/23 [History Last Taken Unknown] venlafaxine 75 mg capsule,extended release 24 hr (Effexor XR) 150 mg PO QHS 03/03/23 [History Last Taken Unknown] fluticasone 250 mcg-salmeterol 50 mcg/dose blistr powdr for inhalation (Advair Diskus) 1 inh inhalation PRN ASTHMA 08/13/23 [History Last Taken Unknown] ubrogepant 100 mg tablet (Ubrelvy) 100 mg PO PRN MIGRAINES 08/13/23 [History Last Taken Unknown] acetaminophen 325 mg tablet 650 mg (2 x 325 mg) PO Q4H PRN PRN Pain Or Fever #0 tabs 08/20/23 [Rx Last Taken Unknown] albuterol sulfate 90 mcg/actuation aerosol inhaler 2 puff inhalation Q4-6H PRN shortness of breath or wheezing 01/25/24 [History Last Taken Unknown] diphenoxylate-atropine 2.5 mg-0.025 mg tablet (Lomotil) 1 tab PO DAILY PRN diarrhea 01/25/24 [History Last Taken Unknown] epinephrine 0.3 mg/0.3 mL injection, auto-injector (EpiPen 2-James) 0.3 mg IM ONCE PRN anaphylaxis 01/25/24 [History Last Taken Unknown] insulin glargine 100 unit/mL (3 mL) subcutaneous pen (Lantus Solostar U-100 Insulin) 10 unit subcut DAILY 01/25/24 [History Last Taken Unknown] auqljv-gstqfcmo-dyqfuth 36,000-114,000-180,000 unit capsule,delay rel (Creon) 1 cap PO TID 01/25/24 [History Last Taken Unknown] lorazepam 1 mg tablet 0.5 mg PO DAILY PRN anxiety 01/25/24 [History Last Taken Unknown] onabotulinumtoxinA 100 unit solution for injection (Botox) 100 unit IM .Q3mos 01/25/24 [History Last Taken Unknown] promethazine 25 mg tablet 25 mg PO TID PRN nausea and vomiting 01/25/24 [History Last Taken Unknown] rizatriptan 5 mg disintegrating tablet See Rx Instructions PO .COMPLEX 01/25/24 [History Last Taken Unknown] tirzepatide 7.5 mg/0.5 mL subcutaneous pen injector (Kevin) 7.5 mg subcut QWEEK 01/25/24 [History Last Taken Unknown] Allergy/AdvReac Type Severity Reaction Status Date / Time amoxicillin Allergy Severe Diarrhea Verified 02/21/24 06:58 aspartame Allergy Severe Diarrhea Verified 02/21/24 06:58 lisinopril Allergy Mild muscle pain Verified 02/21/24 06:58 shellfish derived Allergy Angioedema Verified 02/21/24 06:58 Sulfa (Sulfonamide Allergy Rash Verified 02/21/24 06:58 Antibiotics) metformin AdvReac Intermediate Nausea Verified 02/21/24 06:58 Adkgwhq-BZA-IjB Reductase AdvReac Intermediate Diarrhea Verified 02/21/24 06:58 Inhibitor [Jdtivya-Yag-Pev Reductase Inhibitor] Penicillins AdvReac Diarrhea Verified 02/21/24 06:58 Family History (Updated 01/25/24 @ 08:13 by Ly Sanford) Father Heart disease Ulcerative colitis Grandmother Breast cancer Daughter Crohn's disease Surgical History H/O lithotripsy History of LAVH History of right oophorectomy History of tonsillectomy Hx of cystoscopy Hx of cystoscopy Hx of LASIK Hx of oophorectomy Hx of wisdom tooth extraction S/P laparoscopic assisted vaginal hysterectomy (LAVH) Status post cholecystectomy Social History number of children: 2 current occupational status: employed 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 [employer] Smoking Status: Never smoker alcohol intake: current details: social substance use type: does not use caffeine: Yes what type of physical activity do you participate in: none seatbelt use: always additional social history: Carly Washburn 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 ROS Constitutional Constitutional: Denies chills, fever(s) or malaise Eyes Eyes: Denies blurry vision or change in vision ENT HEENT: Reports none Cardiovascular Cardiovascular: Denies chest pain or palpitations Respiratory/Chest Respiratory/Chest: Denies cough or shortness of breath with exertion Gastrointestinal Gastrointestinal: Denies abdominal pain, constipation or diarrhea Musculoskeletal Musculoskeletal: Denies back pain, joint stiffness or joint swelling Integumentary Integumentary: Denies dry skin, jaundice, lesions or rash Neurologic Neurologic: Denies confusion, syncope or weakness Psychiatric Psychiatric: Reports none; Denies anxiety or depression Endocrine Endocrinology: Denies excessive sweating, fatigue or flushing Hematologic/Lymphatic Hematologic/Lymphatic: Denies anemia, easy bleeding or easy bruising Vital Signs Vital Signs Vital Signs: 02/21/24 06:59 02/21/24 06:59 Temperature 97.4 F L Temperature Source Temporal Pulse Rate 102 H Respiratory Rate 16 Respiratory Pattern Normal Blood Pressure 131/94 H Blood Pressure Mean 106 Blood Pressure Source Monitor Blood Pressure Position Semi-Fowlers Blood Pressure Location Right Arm Pulse Ox 100 Oxygen Delivery Method Room Air Weight Weight: 249 lb 1.957 oz Body Mass Index (BMI) 45.6 Physical Exam Const alert and oriented x3 General Appearance: cooperative HEENT normocephalic, head/scalp atraumatic, EAC's normal and TM's normal bilaterally Eyes PERRL and EOMs intact bilaterally Pupil: sluggish Neck no lymphadenopathy, supple and no JVD General: trachea midline Lymph Lymphatic: no lymphadenopathy noted, lymphedema and lymphadenopathy Resp normal respiratory effort, normal air movement and clear to auscultation bilaterally Cardio regular rate, regular rhythm and peripheral pulses 2+ throughout GI soft to palpation, non-tender and non-distended Extremity normal capillary refill and no clubbing, cyanosis or edema General Extremity: no tenderness to palpation of joints or extremities Skin no rashes or lesions noted General Skin Exam: turgor normal Lesions: no lesions Rashes: no rashes Neuro CN's II-XII intact bilaterally Speech: speech normal Motor Exam: strength 5/5 throughout; Negative for general weakness Psych thought process normal, cooperative and affect normal Appearance: appropriate Results Lab / Micro Data Labs: Laboratory Results - last 24 hr 02/21/24 07:09: POC Glucose 177 H Assessment & Plan Assessment/Plan (1) Encounter for screening for malignant neoplasm of colon: PLAN: She will undergo screening colonoscopy. She was explained alternatives, risk, benefits including not withstanding bleeding, infection, sepsis, perforation, need for mergers and . She have an ASA of 2.
[2024-02-21 08:32] VITALS: BP 113/85; BP 131/94; PULSE 97; RESP 16; TEMP 36.1; O2SAT 100
--- NOTE | 2024-02-21 08:34 | OP.CCLET_ITS ---
02/21/2024 Moustapha Bower [address] [place] [address] Re : Colonoscopy procedure for Rsosy Harris Dear Dr. Bower This procedure was performed on Wednesday, February 21, 2024. My impressions and recommendations are as follows: Impressions : - The entire examined colon is normal. - Diverticulosis in the recto-sigmoid colon. - No specimens collected. Recommendations : - Discharge patient to home. - Resume previous diet. - Continue present medications. - Repeat colonoscopy in 10 years for screening purposes. My findings are described in the full procedure note, which is enclosed. If I can be of further assistance, please feel free to contact me at . Sincerely, Shaq Nathan, 02/21/2024 8:34:09 AM This report has been signed electronically.
--- NOTE | 2024-02-21 08:34 | OP.COLON_ITS ---
Patient Name: Rossy Harris Procedure Date: 02/21/2024 8:06 AM Date of : 1975 Age: 48 Procedure: Colonoscopy Indications: Screening for colorectal malignant neoplasm Providers: Shaq Nathan DO Referring MD: Moustapha Bower Medicines: Monitored Anesthesia Care Patient Profile: This is a 48 year old female. Refer to note in patient chart for documentation of history and physical. Last Colonoscopy: none. The patient's first colonoscopy is today. Complications: No immediate complications. Procedure: Pre-Anesthesia Assessment: - Prior to the procedure, a History and Physical was performed, and patient medications and allergies were reviewed. The patient is competent. The risks and benefits of the procedure and the sedation options and risks were discussed with the patient. All questions were answered and informed consent was obtained. Patient identification and proposed procedure were verified by the physician in the pre-procedure area. Mental Status Examination: alert and oriented. Airway Examination: normal oropharyngeal airway and neck mobility. Prophylactic Antibiotics: The patient does not require prophylactic antibiotics. Prior Anticoagulants: The patient has taken no anticoagulant or antiplatelet agents. After reviewing the risks and benefits, the patient was deemed in satisfactory condition to undergo the procedure. The anesthesia plan was to use monitored anesthesia care (MAC). Immediately prior to administration of medications, the patient was re-assessed for adequacy to receive sedatives. The heart rate, respiratory rate, oxygen saturations, blood pressure, adequacy of pulmonary ventilation, and response to care were monitored throughout the procedure. The physical status of the patient was re-assessed after the procedure. After I obtained informed consent, the scope was passed under direct vision. Throughout the procedure, the patient's blood pressure, pulse, and oxygen saturations were monitored continuously. The colonoscope was introduced through the anus and advanced to the cecum, identified by appendiceal orifice and ileocecal valve. The colonoscopy was performed without difficulty. The patient tolerated the procedure well. The quality of the bowel preparation was adequate. Scope In: 8:15:04 AM Scope Withdrawal Time 0 hours 5 minutes 11 seconds Scope Out: 8:26:01 AM Total Procedure Duration Time 0 hours 10 minutes 57 seconds Findings: The perianal and digital rectal examinations were normal. The colon (entire examined portion) appeared normal. A few small-mouthed diverticula were found in the recto-sigmoid colon. Impression: - The entire examined colon is normal. - Diverticulosis in the recto-sigmoid colon. - No specimens collected. Recommendation: - Discharge patient to home. - Resume previous diet. - Continue present medications. - Repeat colonoscopy in 10 years for screening purposes. Procedure Code(s): --- Professional --- G0121, Colorectal cancer screening; colonoscopy on individual not meeting criteria for high risk CPT copyright 2021 [employer]. All rights reserved. The codes documented in this report are preliminary and upon director of distribution review may be revised to meet current compliance requirements. Shaq Nathan DO 02/21/2024 8:34:09 AM This report has been signed electronically. Number of Addenda: 0 Note Initiated On: 02/21/2024 8:06 AM
[2024-02-21 08:35] VITALS: BP 113/93; BP 131/94; PULSE 104; RESP 16; O2SAT 100
[2024-02-21 08:40] VITALS: BP 115/93; BP 131/94; PULSE 100; RESP 16; TEMP 36.1; O2SAT 99
[2024-02-21 08:58] VITALS: BP 131/94
== END 2024-02-21 09:10 | disposition home or self-care (01) ==
LOC: EN 06:46 → AC 06:47
PROVIDERS: PCP Family Medicine; Referring Provider Family Medicine; Visit Provider Internal Medicine Gastroenterology
PROC: 0DJD8ZZ Inspection of Lower Intestinal Tract, Via Natural or Artificial Opening Endoscopic (ICD-10-PCS; CPT 45378; principal; 2024-02-21 07:55)
DX: Z12.11 Encounter for screening for malignant neoplasm of colon (principal); Z68.42 Body mass index [BMI] 45.0-49.9, adult; E11.9 Type 2 diabetes mellitus without complications; Z79.4 Long term (current) use of insulin; I10 Essential (primary) hypertension; E78.00 Pure hypercholesterolemia, unspecified; E66.9 Obesity, unspecified; F41.9 Anxiety disorder, unspecified; J45.909 Unspecified asthma, uncomplicated; Z79.51 Long term (current) use of inhaled steroids; Z79.899 Other long term (current) drug therapy
CPT/HCPCS: G0121; 82962; J7120; J2405

== ENCOUNTER → 2024-03-04 | Outpatient (CLI) | payer BC, SELFPAY ==
[2024-03-04 10:05] LABS: Absolute Lymphocyte Count 1.55 X10^3/uL (0.83-4.51); Absolute Neutrophil Count 3.1 X10^3/uL (2.0-7.7); Hematocrit 39.3 % (37-47); Lymphocyte # 1.55 X10^3/ul (0.83-4.51); Lymphocyte % 31.5 % (19-41); Mean Corp Hgb Conc 33.1 g/dL (32-36); Mean Corpuscular Hgb 29.1 pg (27.0-32.0); Mean Corpuscular Volume 87.9 fL (81-99); Mean Platelet Vol. 9.2 fl (6.2-12.0); Monocyte% 6.1 % (0-10); NRBC Flagged by Analyzer 0 % (0-5); Neutrophil # 3.05 X10^3/uL (2.7-7.7); Platelet Count 210 K/mm3 (150-450); RBC Distribution Width CV 13.1 % (11.6-14.6); RBC Distribution Width SD 41.9 fl (35.1-43.9); Red Blood Count 4.47 M/mm3 (4.2-5.4); White Blood Count 4.9 K/mm3 (4.4-11.0)
[2024-03-04 10:31] LABS: Hemoglobin A1c 6.7 % (3.8-5.6)
[2024-03-04 10:32] LABS: ALB/GLOB Ratio 1.1 RATIO (0.9-2.4); AST(SGOT) 13 U/L (15-37); Alanine Aminotransfer ALT/SGPT 23 U/L (13-56); Albumin, Serum 3.7 g/dL (3.2-5.0); Alkaline Phosphatase 80 U/L (45-117); Anion Gap 5 (5-15); BUN 19 mg/dL (7-18); BUN/Creat Ratio 21.3 RATIO (10-20); Calcium,Total 8.8 mg/dL (8.5-10.1); Chloride 104 mmol/L (98-107); Cholesterol 259 mg/dL (200); Creatinine, Serum 0.89 mg/dL (0.55-1.02); EST Glomerular Filtration Rate 71 mL/min (>60); Est Glom Filt Rate - Afr Amer 86 mL/min (>60); Globulin 3.5 g/dL (2.2-4.2); Glucose 154 mg/dL (74-106); High Density Lipoprotein 39 mg/dL; Protein, Total 7.2 g/dL (6.4-8.2); Sodium Level 136 mmol/L (136-145); Thyroid Stim Hormone (TSH) 0.67 uIU/mL (0.358-3.74); Triglycerides 307 mg/dL; Very Low Density Lipoprotein 61 mg/dL (5-40)
[2024-03-04 10:33] LABS: Microalbumin,Random Urine 17.8 mg/L (NO RANGE EST.); Microalbumin:Creatinine Ratio 10.8 mg/g CRE (<30 mg/g CRE)
[2024-03-07 22:06] LABS: Hepatitis B Core Ab Total Negative (Negative); QNTFERON TB Mitogen Value > 10.00 IU/mL (.); QNTFERON TB Nil Value 0.02 IU/mL (.); QNTFERON TB1+ Ag Value 0.03 IU/mL (.); QNTFERON TB2+ Ag Value 0.02 IU/mL (.); QNTIFERON TB Positive Criteria Negative (Negative)
== END | disposition home or self-care (01) ==
PROVIDERS: PCP Family Medicine; Referring Provider Family Medicine; Visit Provider Family Medicine
DX: Z00.00 Encounter for general adult medical examination without abnormal findings (principal); L40.59 Other psoriatic arthropathy; E11.9 Type 2 diabetes mellitus without complications; L40.0 Psoriasis vulgaris; Z79.899 Other long term (current) drug therapy
CPT/HCPCS: 36415; 80053; 80061; 82043; 82570; 83036; 84443; 85025; 86480; 86704

== ENCOUNTER → 2024-03-31 | Outpatient (CLI) | payer BC, SELFPAY ==
[2024-03-31 16:44] LABS: Estradiol 12.3 pg/mL; Follicle Stimulating Hormone 46.8 mIU/mL; Thyroid Stim Hormone (TSH) 0.15 uIU/mL (0.358-3.74)
== END | disposition home or self-care (01) ==
LOC: LAB 15:23
PROVIDERS: PCP Family Medicine; Referring Provider Obstetrics & Gynecology; Visit Provider Obstetrics & Gynecology
DX: Z13.29 Encounter for screening for other suspected endocrine disorder (principal)
CPT/HCPCS: 36415; 82670; 83001; 84443

== ENCOUNTER → 2024-04-04 | Outpatient (CLI) | payer BC, SELFPAY ==
[2024-04-04 11:11] LABS: T4 Free Direct 0.85 ng/dL (0.76-1.46)
== END | disposition home or self-care (01) ==
LOC: LAB 09:24
PROVIDERS: PCP Family Medicine; Referring Provider Obstetrics & Gynecology; Visit Provider Obstetrics & Gynecology
DX: R79.89 Other specified abnormal findings of blood chemistry (principal)
CPT/HCPCS: 36415; 84439

== ENCOUNTER → 2024-04-14 | Outpatient (CLI) | payer BC, SELFPAY ==
[2024-04-14 12:22] LABS: Free T3 2.5 pg/mL (2.18-3.98); Prolactin 5.6 ng/mL; T3 Total - Triiodothyronine 1.17 ng/mL (0.6-1.81); T4 Free Direct 0.93 ng/dL (0.76-1.46); T4 Total, Thyroxin 9.7 ug/dL (4.8-13.9); Thyroid Stim Hormone (TSH) 1.04 uIU/mL (0.358-3.74); Vitamin B12 475 pg/mL (211-911); Vitamin D,25 Hydroxy 92.7 ng/mL
== END | disposition home or self-care (01) ==
LOC: LAB 11:01
PROVIDERS: PCP Family Medicine; Referring Provider Family Medicine; Visit Provider Family Medicine
DX: R53.83 Other fatigue (principal); E55.9 Vitamin D deficiency, unspecified; R79.89 Other specified abnormal findings of blood chemistry
CPT/HCPCS: 36415; 82306; 82607; 84146; 84436; 84439; 84443; 84480; 84481

== ENCOUNTER → 2024-05-05 | Outpatient (CLI) | payer BC, SELFPAY ==
[2024-05-05 15:36] VITALS: BP 146/91; PULSE 87; RESP 18; TEMP 36.4; O2SAT 100; BMI 44.8
[2024-05-05 15:38] VITALS: BP 146/91; PULSE 87
[2024-05-05] MEDS: Metoprolol Tartrate 5 MG/5 ML Vial IV ×2 (15:38→15:43)
[2024-05-05] MEDS: 0.9% Saline Lock 10 ML Syringe IV ×2 (15:38→15:43)
[2024-05-05 15:43] VITALS: BP 144/84; PULSE 83
[2024-05-05 15:45] VITALS: BP 143/86; PULSE 88; RESP 16; O2SAT 100
--- NOTE | 2024-05-05 16:07 | NURSING ---
Pt took oral Metoprolol on 05/04/24 at night and then again at 1445 today. Pt comes in for Calcium Scoring test. Initial HR [address] table. Pt informed unable to do exam if HR is not below 74. Pt informed she had a few options. 1 option included getting an IV for IV Metoprolol and seeing if her HR would come down with that. Pt informed that it may not work, especially because she already had a dose last night and today. Pt also informed that she would incur charges for each medication pushed that could result in hundreds of dollars and with those medications and charges, we still could not guarantee that we could get her HR low enough to do the test. The other option would be for the patient to go to a different facility that would have a different CT scanner that could do this test without regard to HR. Pt stated she would do whatever Dr. Bower wanted done. Dr. Bower was contacted, he was comfortable with the patient getting IV Metoprolol, but only if the patient was ok with incurring medication charges. Pt stated she was ok with that. Medications orders were placed by Radiology [facility]FFER PABLO [facility]. Initial dose of Metoprolol IV dropped pt's HR to 83bpm then patient's HR was back up to 87bpm. Second dose dropped pt's HR to 78bpm for a very short moment and then it was back to 87. ERICA Cohen then informed pt she is not sustaining her lower HR for long enough to do the test and the 3rd dose of Metoprolol would more than likely not give the result we were attempting to achieve. Pt is understanding. Rachel Ren then talks to pt about options at other facilities.
== END | disposition home or self-care (01) ==
PROVIDERS: PCP Family Medicine; Referring Provider Family Medicine; Visit Provider Family Medicine
DX: I25.10 Atherosclerotic heart disease of native coronary artery without angina pectoris (principal)
CPT/HCPCS: 96374

== ENCOUNTER → 2025-01-05 | Outpatient (CLI) | payer BC, SELFPAY ==
--- NOTE | 2025-01-05 14:16 | BI_ITS ---
PROCEDURE: SCRN MAMM (CAD)W/MAURO BILAT REASON FOR EXAM: F, Age 49 y/o, grandmother with breast cancer. Routine annual follow-up. TECHNIQUE: Bilateral screening digital breast tomosynthesis with 2D and 3D images. Computer aided detection. COMPARISON: Prior exam(s) dating back to February 23, 2023.. FINDINGS: There are scattered areas of fibroglandular density. Stable examination. No suspicious masses, areas of developing architectural distortion, or suspicious calcifications. BI/SCRN MAMM (CAD)W/MAURO BILAT IMPRESSION: BI-RADS 1: NEGATIVE. RECOMMEND ANNUAL MAMMOGRAPHIC SCREENING. Follow-up code: Routine Follow-up The patient will be notified of the results by letter. Reading Location: [place] [id number]
== END | disposition home or self-care (01) ==
LOC: OPBI 14:15
PROVIDERS: PCP Family Medicine; Referring Provider Obstetrics & Gynecology; Visit Provider Obstetrics & Gynecology
DX: Z12.31 Encounter for screening mammogram for malignant neoplasm of breast (principal)
CPT/HCPCS: 77063; 77067